=== PATIENT | male | born 1965 | race Caucasian/White ===

== ENCOUNTER 2016-07-30 14:31 | Inpatient (IN) | payer OTHER ==
[~2016-07-30] VITALS: Ht 157.5 cm; Wt 106.2 kg
[2016-07-30] MEDS ORDERED: SODIUM CHLORIDE 0.9% 1000ML 1,000 ML IV SCH (17:04)
[2016-07-30] MEDS ORDERED: NITROGLYCERIN 0.4 MG SL PER TAB CHARGE SL PRN (17:15)
[2016-07-30] MEDS ORDERED: ONDANSETRON INJ 2 MG/ML 2 ML VIAL IV PRN (17:15)
[2016-07-30] MEDS ORDERED: POLYETHYLENE (MIRALAX) 17 GM PACK PO PRN (17:15)
[2016-07-30] MEDS ORDERED: VANCOMYCIN CONSULT ACTIVE PRN (17:30)
[2016-07-30] MEDS ORDERED: PATIENT'S HEIGHT AND/OR WEIGHT NEEDED SCH (17:30)
[2016-07-30] MEDS ORDERED: PIPERACILL/TAZOBAC CONSULT ACTIVE PRN (17:30)
[2016-07-30 18:00] VITALS: BP 99/58; PULSE 66; TEMP 37; O2SAT 99; Ht 157.5 cm; Wt 106.2 kg
[2016-07-30] MEDS ORDERED: PIPERACILL/TAZOBAC IV 3.375 GM in DEXTROSE 5% 100ML 100 ML IV SCH (18:00)
[2016-07-30 18:05] LABS: BASO % 0.4 %; BASO ABS # 0.07 K/uL (0-0.2); COMPLETE YES; HEMATOCRIT 43.4 % (42-52); IG% 0.4 %; LYMPH % 10.4 %; LYMPH ABS # 1.74 K/uL (1.2-3.4); MEAN CELL VOLUME 96.4 fL (80-100); MEAN CORPUSCULAR HEMOGLOBIN 30.7 pg (25-34); MEAN CORPUSCULAR HGB CONC 31.8 g/dl (32-36); MEAN PLATELET VOLUME 11.6 fL (7.4-10.4); MONO % 8.4 %; NEUT % 80.4 %; PLATELET COUNT 114 K/uL (130-400); WHITE BLOOD COUNT 16.78 K/uL (4.8-10.8)
[2016-07-30 18:25] LABS: INR 1.3 (0.9-1.1); PROTHROMBIN TIME (PATIENT) 13.5 SECONDS (9.0-12.0)
[2016-07-30] MEDS ORDERED: PIPERACILL/TAZOBAC IV 4.5 GM in DEXTROSE 5% 100ML IV ONE (18:30)
[2016-07-30 18:40] LABS: BUN/CREATININE RATIO 22.2 (10-20); CREATININE 2.2 mg/dl (0.60-1.40); POTASSIUM 4.1 mmol/L (3.5-5.1); URIC ACID 10.9 mg/dl (2.6-7.2)
[2016-07-30 18:43] LABS: ALB/GLOB RATIO 0.5 (0.9-2)
--- NOTE | 2016-07-30 18:56 | HISTORY & PHYSICAL EXAMINATION ---
DATE OF ADMISSION: 07/30/2016 CHIEF COMPLAINT: Severe sepsis. HISTORY OF PRESENT ILLNESS: This is a 50-year-old male with past medical history significant for Down syndrome, mostly nonverbal; history of lower extremity stasis dermatitis, history of impaired fasting glucose, hyperlipidemia, cardiac murmur was transferred from [facility] for severe sepsis. Patient, he is mostly nonverbal, says he is okay. The patient lives with his biological mother and stepfather. His mother is disabled and step father takes care of both of them. Talked to his biological father and he said the patient developed some shortness of breath since yesterday and he fell down today and they called EMS and was transferred to [facility]. The father says the patient was having some cough and had a few episodes of diarrhea and patient was also not eating much since last 2 days and was running some temperatures, so he was transferred to [facility]. In the [facility] when the patient arrived he was hypotensive, systolic blood pressure in 60s. He got about 3 liters fluid bolus and blood pressure came up. His initial lactic acid was 3.4 and later lactic acid was 1.3, his troponin I was 0.7. CPK was 6600, initial creatinine was 3.1, repeat creatinine was after fluid bolus was 2.1. Sodium was also high at 150, and uric acid was 13.4. Calcium was 9.3 and the patient was transferred here for further care. He has two 18 gauge lines placed. Currently, blood pressure is stable in high 90s. Heart rate is stable, resting comfortably, seems comfortable. When asked about pain, points to his lower extremities. The patient is unkempt and very poor hygiene. He has lots of thick white scabs attached to his lower extremities and also some skin tear in his groins and also some skin tear in his back as per nursing staff.Also has petechiae rash on fore arms. ALLERGIES: ENVIRONMENTAL. PAST MEDICAL HISTORY: As mentioned above. PAST SURGICAL HISTORY: As per records from [facility], tonsillectomy, umbilical hernia repair, tympanostomy tubes, colonoscopy for internal hemorrhage in 2007. MEDICATIONS: The patient is on metformin 500 mg p.o. daily, atorvastatin 10 mg p.o. daily, triamcinolone for the legs, multivitamins 1 tablet p.o. daily. FAMILY HISTORY: Significant for mother had diabetes, maternal grandfather and grandmother and paternal grandfather has heart disorder. Mother has CVA. SOCIAL HISTORY: Single. No tobacco use. No alcohol use. No drug use. Lives with his biological mother and stepfather. Mother herself is disabled and stepfather takes care for both of them. REVIEW OF SYSTEMS: Unobtainable as patient is nonverbal. PHYSICAL EXAMINATION: GENERAL: The patient is obese, does not seem to be in distress. VITAL SIGNS: Afebrile, pulse 70s, respiratory rate in 20s, blood pressure 99/60s, oxygen saturations were fine. HEENT: No pallor, no icterus. Pupils equal, round, and reactive to light. Oral mucosa dry. NECK: No JVD, no neck masses, no carotid bruits. CARDIOVASCULAR: S1, S2 heard, regular rate and rhythm, no murmur, no gallop. RESPIRATORY SYSTEM: Clear to auscultation bilaterally. No wheezing, no crackles. ABDOMEN: Soft, bowel sounds present. Nontender. No distention. CENTRAL NERVOUS SYSTEM: Nonverbal. Moves his bilateral lower extremities. EXTREMITIES: Chronic lower extremity skin dermatitis and edema present. SKIN: Has petechial rash in upper extremities and excoriations and skin tears in the groin and he has very bad scabs in his lower extremities. ASSESSMENT AND PLAN: A 50-year-old male who presents with severe sepsis. 1. Severe sepsis. The patient went to [facility] with shortness of breath and x-ray showed right middle lobe pneumonia. His labs done at [facility] shows a white count of 15,000. We will repeat the labs. and initially lactic acid 3.1, repeat lactic acid was 1.4. Initial creatinine was 3.1 and repeat creatinine was 2.6. We will repeat the labs here. He received IV cefepime and IV vancomycin and 30 mL per kg body weight fluid bolus and his blood pressure is stable in the high 90s, heart rate is stable. We will follow his blood cultures and urine cultures. We will place him on IV Zosyn and IV vancomycin and iv fluids. Repeat lactic acid. Close monitor in tele. 2. He has skin excoriations in groin and back also patient is unkempt. The patient has very poor hygiene and lot of scabs in his lower extremities. We will consult wound care and follow the recommendations. We will consider consulting ID. 3. Poor hygiene. The patient with Down syndrome and lives with his biological mother and stepfather and mother is also on disability. Stepfather cares for both of them. The patient seems to be not very well taken care of, may area of agency may need to be involved. Social service consult. 4. Prediabetes. We will check HbA1c levels. Place him on insulin sliding scale. 5. History of hyperlipidemia will hold statin for now.Follow lipid profile. 6. Mild elevation of troponin. We will follow serial cardiac enzymes, most likely secondary to severe sepsis. 7. 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 ON fluids . Monitor for volume overload.We will follow the repeat echo. 8. Deep venous thrombosis prophylaxis heparin subQ. 9. Disposition: Close monitoring in tele floor. Level 1 full code. As per my discussion with his stepfather. Adendum: Labs showed hypernatremia with sodium of 152. Cr 2.2. Normal lactic acid of 1.8. Total bilirubin 1.5 and AST 251.Trponin 0.8.Uric acid 10.9 BP improved.Will change fluids to half normal saline 125ml/hr.Consult nephrology in am for hyperuricemia. Will hold stain for elevated lft's and will get liver ultrasound. MATTHEW
[2016-07-30 19:05] LABS: CALCIUM 8.1 mg/dl (8.5-10.1)
[2016-07-30 19:07] LABS: CKMB/CK RATIO 0.4 (0-3.0)
[2016-07-30 19:15] VITALS: BP 122/70; PULSE 69; TEMP 37.4; O2SAT 96
[2016-07-30] MEDS: SODIUM CHLORIDE 0.45% 1000ML 1,000 ML IV SCH (19:41)
[2016-07-30 20:00] VITALS: O2SAT 96
--- NOTE | 2016-07-30 20:58 | DIAGNOSTIC IMAGING REPORT ---
BILIARY ULTRASOUND CLINICAL HISTORY: elevated liver function tests COMPARISON STUDY: No previous studies for comparison. FINDINGS: The pancreas was nonvisualized. The liver is of increased echogenicity, a nonspecific finding often seen in hepatic steatosis. No gallstones are visualized. There is no ductal dilatation. The common bile duct measured 4 mm. There is no right-sided hydronephrosis. The study was limited from a technical standpoint. The patient is nonverbal and unable to cooperate. IMPRESSION: 1. Technically limited study 2. Probable hepatic steatosis 3. Ultrasonographically normal gallbladder. No evidence of ductal dilatation 4. Nondiagnostic evaluation of the pancreas Electronically signed by: Juan J Rizzo M.D. 07/30/2016 8:57 PM Dictated Date/Time: 07/30/2016 8:56 PM
[2016-07-30] MEDS ORDERED: VANCOMYCIN INJ 1,000 MG in SODIUM CHLORIDE 0.9% 250ML 250 ML IV ONE (21:00)
[2016-07-30] MEDS ORDERED: VANCOMYCIN INJ 1,000 MG in SODIUM CHLORIDE 0.9% 250ML 250 ML IV SCH (21:00)
[2016-07-30] MEDS: INSULIN ASPART 100 UNITS/ML 3 ML PEN SC SCH (21:00)
--- NOTE | 2016-07-30 21:09 | Pharmacy Progress Note ---
Pharmacy Abx Initial Consult Date of Service Jul 30, 2016. Pharmacy Dosing Scope Date of Consult: 07/30/16 Consultation requested by: Dr. Siddiqui Pharmacy is consulted to initiate Vanco/Zosyn IV dosing therapy, order appropriate labs and adjust drug dose/frequency. Subjective The patient is a 50 year old male admitted on Jul 30, 2016 at 16:38. Objective Height (Feet): 5 Height (Inches): 3.00 Weight (Kilograms): 106.800 Vital Signs (Past 12Hrs) Vital Signs Past 12 Hours Date Time Temp Pulse Resp B/P (MAP) Pulse Ox O2 Delivery O2 Flow Rate FiO2 07/30/16 19:15 37.4 69 20 122/70 (87) 96 Nasal Cannula 4.0 07/30/16 18:00 37.0 66 20 99/58 99 Nasal Cannula 2.0 Lab Results (24Hrs) Laboratory Tests (24 Hours) Test 07/30/16 17:52 Lactic Acid Level 1.8 mmol/L (0.4-2.0) White Blood Count 16.78 K/uL (4.8-10.8) H Red Blood Count 4.50 M/uL (4.7-6.1) L Hemoglobin 13.8 g/dL (14.0-18.0) L Hematocrit 43.4 % (42-52) Mean Corpuscular Volume 96.4 fL (80-100) Mean Corpuscular Hemoglobin 30.7 pg (25-34) Mean Corpuscular Hemoglobin Concent 31.8 g/dl (32-36) L Platelet Count 114 K/uL (130-400) L Mean Platelet Volume 11.6 fL (7.4-10.4) H Neutrophils (%) (Auto) 80.4 % Lymphocytes (%) (Auto) 10.4 % Monocytes (%) (Auto) 8.4 % Eosinophils (%) (Auto) 0.0 % Basophils (%) (Auto) 0.4 % Neutrophils # (Auto) 13.50 K/uL (1.4-6.5) H Lymphocytes # (Auto) 1.74 K/uL (1.2-3.4) Monocytes # (Auto) 1.41 K/uL (0.11-0.59) H Eosinophils # (Auto) 0.00 K/uL (0-0.5) Basophils # (Auto) 0.07 K/uL (0-0.2) Total Creatine Kinase 8043 U/L (39-308) H Micro Results Date/Time Source Procedure Growth Status 07/30/16 18:05 Blood Blood Culture Pending Received 07/30/16 17:52 Blood Blood Culture Pending Received 07/30/16 18:30 Nasal MRSA DNA Surveillance Screen - Final Specimen Negative for MRSA by DNA Probe Complete Risk Factors for Resistance Unsure at this juncture Assessment & Plan Pt is a 50yo M being transferred from [facility]. SHIFT LEADER: Mr Mukesh was hypotensive, febrile, lactic acid of 3.1, and had an X-ray indicative of PNA. He did receive one dose of Vanco 1000mg x1 and one dose of Cefepime 2000mg x1. Currently, he is experiencing leukocytosis with a left shift , afebrile, RR/HR. Repeat lactic acid 1.8. Pt popualtion p'kinetics: Vd=0.6, ke= 0.28953, t1/2=17hrs. Unsure if this is baseline for his renal fxn. Unsure if he has a h/o of MDRO. MRSA swab came back negative. May consider d/c'ing Vanco at a future juncture dependent on pt's clinical status. Vanco: Random lvl 13.0. Due to poor renal fxn will order a one time dose of Vanco 1000mg (~9mg/kg), random lvl ordered for 07/31 @0444. Goal random lvl 15- 20 until c/s's result. Zosyn: Received one time 30min infsn of Zosyn 4.5g then subsequent doses of EI Zosyn 4.5g q8, appropriate for BMI and eCrCl>20cc/min Pharmacy will continue to follow and will adjust dose/frequency as necessary. Thank you.
[2016-07-30] MEDS: HEPARIN SOD 5000 UNIT/0.5 ML CARP SQ SCH (22:30)
[2016-07-31] VITALS (11 sets, daily range): BP systolic 90–132; BP diastolic 54–65; PULSE 62–75; TEMP 36.5–37; O2SAT 96–100
[2016-07-31] MEDS: PIPERACILL/TAZOBAC IV 4.5 GM in DEXTROSE 5% 100ML IV SCH ×3 (00:25→16:39)
[2016-07-31 01:43] LABS: CKMB/CK RATIO 0.3 (0-3.0)
[2016-07-31] MEDS: SODIUM CHLORIDE 0.45% 1000ML 1,000 ML IV SCH ×3 (05:37→18:18)
[2016-07-31] MEDS: HEPARIN SOD 5000 UNIT/0.5 ML CARP SQ SCH ×3 (05:44→22:25)
[2016-07-31 05:46] LABS: HEMATOCRIT 41.7 % (42-52); MEAN CELL VOLUME 97.7 fL (80-100); MEAN CORPUSCULAR HEMOGLOBIN 30.7 pg (25-34); MEAN CORPUSCULAR HGB CONC 31.4 g/dl (32-36); RED BLOOD COUNT 4.27 M/uL (4.7-6.1); WHITE BLOOD COUNT 22.33 K/uL (4.8-10.8)
[2016-07-31 05:53] LABS: ESTIMATED AVERAGE GLUCOSE 108 mg/dl; HA1C FLAG Normal (Normal)
[2016-07-31 06:17] LABS: BUN/CREATININE RATIO 25.3 (10-20); CALCIUM 7.8 mg/dl (8.5-10.1); CREATININE 1.6 mg/dl (0.60-1.40); MAGNESIUM 2.5 mg/dl (1.8-2.4)
[2016-07-31 06:20] LABS: CHOLESTEROL/HDL RATIO 5.3
[2016-07-31 06:48] LABS: BASO % 0.2 %; BASO ABS # 0.04 K/uL (0-0.2); COMPLETE YES; IG% 0.4 %; LYMPH % 6.3 %; MEAN PLATELET VOLUME 11.2 fL (7.4-10.4); MONO % 5.8 %; NEUT % 87.3 %; PLATELET COUNT 98 K/uL (130-400); PLT ESTIMATE DECREASED
[2016-07-31] MEDS: INSULIN ASPART 100 UNITS/ML 3 ML PEN SC SCH ×4 (07:30→22:00)
--- NOTE | 2016-07-31 07:44 | DIAGNOSTIC IMAGING REPORT ---
CHEST ONE VIEW PORTABLE HISTORY: PNEUMONIA COMPARISON: Outside hospital chest x-ray 07/30/2016. FINDINGS: No pneumothorax. The heart is moderately enlarged. Trace bilateral pleural effusions. Perihilar interstitial and vascular thickening with basilar densities. IMPRESSION: Cardiomegaly, trace bilateral pleural effusions and perihilar interstitial vascular thickening favors mild pulmonary edema. Bibasilar densities may represent a superimposed pneumonia. Electronically signed by: Akira Wu M.D. 07/31/2016 7:43 AM Dictated Date/Time: 07/31/2016 7:42 AM
[2016-07-31] MEDS ORDERED: NURSING DECISION MEDICATION ORDER SCH (08:00)
[2016-07-31] MEDS: VANCOMYCIN INJ 1,500 MG in SODIUM CHLORIDE 0.9% 500ML 500 ML IV SCH (08:04)
[2016-07-31] MEDS: EUCERIN CR 120 GM JAR EXT SCH ×2 (08:37→20:51)
--- NOTE | 2016-07-31 10:07 | Clinical Documentation Query ---
CLINICAL DOCUMENTATION QUERY 50-y/o male with severe sepsis. Query #1/2 In your clinical opinion is this patient being managed for: (+) Suspected aspiration pneumonia evidenced by RML pneumonia and treated with Speech therapy consult and IV Zosyn and Vancomycin. ( ) Other explanation of clinical findings (Please Explain) ( ) Unable to determine (Please Define) ( ) Need to Discuss ( ) Not Agree The medical record reflects the following clinical findings, treatment, and risk factors. Clinical Indicators: RML pneumonia per H&P. Severe Sepsis. Treatment: O2, IV Vancomycin, IV Zosyn, Nephrology consult, & speech therapy evail Risk Factors: Age, Down syndrome, Query #2/2 In your clinical opinion is this patient being managed for: ( + ) SURAJ in setting of severe sepsis and presenting hypotension. ( ) Other explanation of clinical findings (Please Explain) ( ) Unable to determine (Please Define) ( ) Need to Discuss ( ) Not Agree The medical record reflects the following clinical findings, treatment, and risk factors. Clinical Indicators: Creatinine of 3.1 at [facility]. BUN 49 Creatinine 2.20, GFR 33.4 from labs drawn on arrival here. Treatment: multiple IV boluses, Nephrology consult. Risk Factors: Severe sepsis with presenting hypotension. Please clarify and document your clinical opinion in the progress notes and discharge summary. Terms such as "probable", "suspected", "likely", "questionable", "possible", or "still to be ruled out" are acceptable. IF IN AGREEMENT, YOU MUST DOCUMENT ABOVE DIAGNOSTIC STATEMENT IN DAILY PROGRESS NOTES AND DISCHARGE SUMMARY. This document is not part of the patient's record. Thank You, Duane Pelayo, RN [phone]
[2016-07-31 10:47] LABS: CKMB/CK RATIO 0.3 (0-3.0)
--- NOTE | 2016-07-31 11:03 | Pharmacy Progress Note ---
Pharmacy Antibiotic Prog Note Date of Service Jul 31, 2016. Subjective The patient is currently receiving Vancomycin IV. The patient is currently on day # 2 of therapy. Objective Height (Feet): 5 Height (Inches): 3.00 Weight (Kilograms): 106.200 Levels: Item Value Date Time Random Vancomycin Level 14.6 mcg/ml 07/31/16520 Lab Results (24hrs): Item Value Date Time White Blood Count 22.33 K/uL H 07/31/16520 Neutrophils # (Auto) 19.51 K/uL H 07/31/16520 Creatinine 1.60 mg/dl H 07/31/16520 Est Creatinine Clear Calc Drug Dose 58.3 ml/min 07/31/16520 Micro Results: Item Value Date Time Urine Culture Received 07/31/16 0023 Urine , Clean Catch Pending MRSA DNA Surveillance Screen - Final Complete 07/30/16 1830 Nasal Specimen Negative for MRSA by DNA Probe Blood Culture Received 07/30/16 1805 Blood Pending Blood Culture Received 07/30/16 1752 Blood Pending Assessment & Plan ASSESSMENT: * Patient was a direct admit from [facility] last evening. Patient admitted with sepsis/pna. * Vanc given at [facility] and small supplemental dose given upon admission, with random level evaluation this morning (in the setting of SURAJ). * Random level this morning indicates that re-dose is warranted. Will initiate conservatively and adjust regimen as renal function improves. It is unclear what patient's baseline renal function is. PLAN: * Random vanc level this mornin.6mcg/mL * This drug level is: nearly Therapeutic * Begin Vancomycin 1500 mg (~14mg/kg) IV every 16 hours. * dosing conservatively d/t the likelihood of vancomycin accumulation in the obese pt population (BMI 42.8kg/m2) * Estimated p'kinetic parameters (based on CrCl 58mL/min): expect that this may continue to improve * Ke ~ 0.053/hr t1/2 ~ 13hr * Goal trough level estimate: between 15 - 20 mcg/mL, for sepsis/pna. * Will check a trough level prior to the 3rd or 4th maintenance dose. Pharmacy will continue to follow and will adjust dose/frequency as necessary. Thank you
[2016-07-31] MEDS ORDERED: NURSING VERBAL MED ORDER ONE (12:45)
[2016-07-31] MEDS ORDERED: SODIUM CHLORIDE 0.45% 1000ML 1,000 ML IV SCH (13:30)
--- NOTE | 2016-07-31 14:58 | Progress Note ---
Internal Med Progress Note Date of Service: Jul 31, 2016. Provider Documentation: SUBJECTIVE: The patient was seen and examined Minimally verbal Not in any distress OBJECTIVE: Vital Signs-as noted below Exam: General-no acute symptoms Eyes-normal ENT-normal Neck-supple Lungs-Decreased breath sound bilaterally Heart-Regular,no murmur appreciated Abdomen-Benign,no masses,bowel sound present Extremities-Chronic edema bilaterally with chronic skin changes Dirty wartlike lesions cover almost all of the lower legs Chronic Cutaneous Mycosis,superficial ulcerations Neuro-AA Has Down syndrome Lab data as noted below. ASSESSMENT & PLAN: Severe sepsis. Transferred from [facility] ER with Hypotension ,tachycardia and increased WCC Reported to have Pneumonia ,may have UTI and or skin and soft tissue infection Cultures taken Has been on IV Zosyn and Vancomycin Receiving adequet IVF Lactic acid improved ,BP stable WCC increased -will monitor SURAJ and Increased Uric Acid and Hypernatremia Likely secondary to Dehydration and sepsis Receiving adequet IVF with .45 saline Minimal increase in Troponin is likely due to SURAJ Monitor PRP Poor hygiene. He has skin excoriations in groin and back And likely skin mycosis in legs Consult wound care and follow the recommendations. Social Service for possible placement May need ID if not any better Abnormal LFT US negative for any Cholecystitis Has Steatosis Will monitor Increased CPK No known Injury and or fall Will monitor Prediabetes. We will check HbA1c levels.-5.[address] him on insulin sliding scale. Hyperlipidemia will hold statin for now. Follow lipid profile. 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 ON fluids . Monitor for volume overload.We will follow the repeat echo. Deep venous thrombosis prophylaxis heparin subQ. Level 1 full code. As per my discussion with his stepfather. Disposition May be transferred to [place] Vital Signs: Date Time Temp Pulse Resp B/P (MAP) Pulse Ox O2 Delivery O2 Flow Rate FiO2 07/31/16 13:56 113/55 (74) 07/31/16 12:00 96 Nasal Cannula 3.0 07/31/16 11:44 36.7 65 20 93/54 (67) 98 Nasal Cannula 3.0 07/31/16 08:00 98 Nasal Cannula 3.0 07/31/16 07:30 36.5 62 20 106/56 (73) 98 Nasal Cannula 3.0 07/31/16 04:00 Nasal Cannula 4.0 07/31/16 03:47 36.5 65 18 111/65 (80) 100 Nasal Cannula 3.0 07/31/16 00:27 37.0 71 20 115/60 (78) 98 07/30/16 23:59 Nasal Cannula 4.0 07/30/16 20:00 96 Nasal Cannula 4.0 07/30/16 19:15 37.4 69 20 122/70 (87) 96 Nasal Cannula 4.0 07/30/16 18:00 37.0 66 20 99/58 99 Nasal Cannula 2.0 Lab Results: Results Past 24 Hours Test 07/30/16 17:52 07/30/16 20:10 07/31/16 01:00 07/31/16 05:21 Range/Units White Blood Count 16.78 22.33 4.8-10.8 K/uL Red Blood Count 4.50 4.27 4.7-6.1 M/uL Hemoglobin 13.8 13.1 14.0-18.0 g/dL Hematocrit 43.4 41.7 42-52 % Mean Corpuscular Volume 96.4 97.7 80-100 fL Mean Corpuscular Hemoglobin 30.7 30.7 25-34 pg Mean Corpuscular Hemoglobin Concent 31.8 31.4 32-36 g/dl Platelet Count 114 98 130-400 K/uL Mean Platelet Volume 11.6 11.2 7.4-10.4 fL Neutrophils (%) (Auto) 80.4 87.3 % Lymphocytes (%) (Auto) 10.4 6.3 % Monocytes (%) (Auto) 8.4 5.8 % Eosinophils (%) (Auto) 0.0 0.0 % Basophils (%) (Auto) 0.4 0.2 % Neutrophils # (Auto) 13.50 19.51 1.4-6.5 K/uL Lymphocytes # (Auto) 1.74 1.40 1.2-3.4 K/uL Monocytes # (Auto) 1.41 1.30 0.11-0.59 K/uL Eosinophils # (Auto) 0.00 0.00 0-0.5 K/uL Basophils # (Auto) 0.07 0.04 0-0.2 K/uL RDW Standard Deviation 54.6 54.8 36.4-46.3 fL RDW Coefficient of Variation 15.3 15.3 11.5-14.5 % Immature Granulocyte % (Auto) 0.4 0.4 % Immature Granulocyte # (Auto) 0.06 0.08 0.00-0.02 K/uL Nucleated RBC Absolute Count (auto) 0.02 0-0 K/uL Nucleated Red Blood Cells % 0.1 % Prothrombin Time 13.5 9.0-12.0 SECONDS Prothromb Time International Ratio 1.3 0.9-1.1 Activated Partial Thromboplast Time 26.3 21.0-31.0 SECONDS Partial Thromboplastin Ratio 1.0 Sodium Level 152 153 136-145 mmol/L Potassium Level 4.1 4.0 3.5-5.1 mmol/L Chloride Level 119 121 98-107 mmol/L Carbon Dioxide Level 24 26 21-32 mmol/L Anion Gap 9.0 6.0 3-11 mmol/L Blood Urea Nitrogen 49 40 7-18 mg/dl Creatinine 2.20 1.60 0.60-1.40 mg/dl Est Creatinine Clear Calc Drug Dose 42.4 58.3 ml/min Estimated GFR () 38.8 57.0 Estimated GFR (Non- 33.4 49.2 BUN/Creatinine Ratio 22.2 25.3 10-20 Random Glucose 110 106 70-99 mg/dl Lactic Acid Level 1.8 0.4-2.0 mmol/L Uric Acid 10.9 2.6-7.2 mg/dl Calcium Level 8.1 7.8 8.5-10.1 mg/dl Total Bilirubin 1.5 0.2-1 mg/dl Aspartate Amino Transf (AST/SGOT) 251 15-37 U/L Alanine Aminotransferase (ALT/SGPT) 59 12-78 U/L Alkaline Phosphatase 38 45-117 U/L Total Creatine Kinase 8043 6505 39-308 U/L Creatine Kinase MB 28.8 22.2 0.5-3.6 ng/ml Creatine Kinase MB Ratio 0.4 0.3 0-3.0 Troponin I 0.811 0.497 0-0.045 ng/ml Total Protein 6.8 6.4-8.2 gm/dl Albumin 2.4 3.4-5.0 gm/dl Globulin 4.4 2.5-4.0 gm/dl Albumin/Globulin Ratio 0.5 0.9-2 Random Vancomycin Level 13.0 14.6 mcg/ml Bedside Glucose 106 70-99 mg/dl Platelet Estimate DECREASED Estimated Average Glucose 108 mg/dl Hemoglobin A1c 5.4 4.5-5.6 % Magnesium Level 2.5 1.8-2.4 mg/dl Triglycerides Level 161 0-150 mg/dl Cholesterol Level 121 0-200 mg/dl HDL Cholesterol 23 mg/dl LDL Cholesterol, Calculated 66 mg/dl VLDL Cholesterol, Calculated 32 mg/dl Cholesterol/HDL Ratio 5.3 Test 07/31/16 07:07 07/31/16 09:55 07/31/16 11:19 Range/Units Bedside Glucose 87 97 70-99 mg/dl Total Creatine Kinase 4349 39-308 U/L Creatine Kinase MB 15.2 0.5-3.6 ng/ml Creatine Kinase MB Ratio 0.3 0-3.0 Troponin I 0.304 0-0.045 ng/ml Microbiology Results 07/30/16 Blood Culture, Received Pending 07/30/16 Blood Culture, Received Pending 07/30/16 MRSA DNA Surveillance Screen - Final, Complete Specimen Negative for MRSA by DNA Probe 07/31/16 Urine Culture, Received Pending
--- NOTE | 2016-07-31 15:26 | ECHOCARDIOGRAM REPORT ---
*NOTICE TO RECEIVING LIBERTARIAN AGENCY This information is strictly Confidential and protected under [place] law. [place] law prohibits you from making any further disclosure of this information unless further disclosure is expressly permitted by the written consent of the person to whom it pertains or is authorized by law. A general authorization for the release of medical or other information is not sufficient for this purpose. Hospital accepts no responsibility if the information is made available to any other person, INCLUDING THE PATIENT. Interpretation Summary * Name: SAMREEN COPPOLA Study Date: 07/31/2016 06:43 AM BP: 111/65 mmHg * Patient Location: [facility] HR: 67 * : 1965 (M/d/yyyy) Gender: Male Height: 63 in * Age: 50 yrs Ethnicity: CA Weight: 234 lb * Ordering Physician: Max Siddiqui * Referring Physician: Max Siddiqui * Performed By: Michelle Sorensen RDCS * * Reason For Study: Mild elevation of troponin, murmur * BSA: 2.1 m2 * The study was technically adequate. * There is no comparison study available. * -- Conclusions -- * Ejection Fraction = 60-65%. * The left ventricular wall motion is normal. * Pulse wave TDI of the anterior and posterior mitral annulas demonstrates abnormal LV relaxation * Aortic valve sclerosis mild, without significant aortic valvular stenosis. Procedure Details * A complete two-dimensional transthoracic echocardiogram was performed (2D, M-mode, Doppler and color flow Doppler). Left Ventricle * The left ventricle is normal in size. * There is normal left ventricular wall thickness. * Ejection Fraction = 60-65%. * Left ventricular systolic function is normal. * The left ventricular wall motion is normal. Right Ventricle * The right ventricle is normal size. * The right ventricular systolic function is normal as assessed by tricuspid annular plane systolic excursion (TAPSE) (normal >1.5 cm). Atria * The left atrial size is normal. * Right atrial size is normal. * There is no evidence of atrial septal defect, but resolution does not allow assessment for a patent foramen ovale. Mitral Valve * The mitral valve is normal. * There is no mitral valve stenosis. * Significant mitral regurgitation is absent. Tricuspid Valve * The tricuspid valve is normal. * There is no tricuspid stenosis. * Significant tricuspid regurgitation is absent. Aortic Valve * The aortic valve is not well visualized. * Aortic valve sclerosis mild, without significant aortic valvular stenosis. * Aortic stenosis is absent. * There is no significant aortic regurgitation. Pulmonic Valve * The pulmonary valve is not well seen, but the Doppler examination is normal without significant regurgitation or stenosis. Great Vessels * The aortic root and proximal ascending aorta are normal sized. Pericardium/Pleural * There is no pericardial effusion. Great Vessels * Normal inferior vena cava diameter and respiratory variation suggests normal central venous pressure. Left Ventricular Diastolic Function * Pulse wave TDI of the anterior and posterior mitral annulas demonstrates abnormal LV relaxation MMode 2D Measurements and Calculations IVSd 1.1 cm LVIDd 4.0 cm LVIDs 2.5 cm LVPWd 1.1 cm IVS/LVPW 1.0 FS 37.7 % EDV(Teich) 69.0 ml ESV(Teich) 21.8 ml EF(Teich) 68.4 % EDV(cubed) 62.8 ml ESV(cubed) 15.2 ml EF(cubed) 75.9 % LV mass(C)d 140.8 grams LV mass(C)dI 68.1 grams/m\S\2 SV(Teich) 47.2 ml SI(Teich) 22.8 ml/m\S\2 SV(cubed) 47.7 ml SI(cubed) 23.1 ml/m\S\2 Ao root diam 3.6 cm Ao root area 10.2 cm\S\2 ACS 1.7 cm LA dimension 2.1 cm asc Aorta Diam 2.9 cm LA/Ao 0.60 LVOT diam 2.2 cm LVOT area 3.7 cm\S\2 LVAd ap4 28.2 cm\S\2 LVLd ap4 8.3 cm EDV(MOD-sp4) 77.8 ml EDV(sp4-el) 81.4 ml LVAs ap4 14.6 cm\S\2 LVLs ap4 6.3 cm ESV(MOD-sp4) 26.1 ml ESV(sp4-el) 28.8 ml EF(MOD-sp4) 66.5 % EF(sp4-el) 64.7 % LVAd ap2 27.5 cm\S\2 LVLd ap2 7.7 cm EDV(MOD-sp2) 78.6 ml EDV(sp2-el) 82.6 ml LVAs ap2 15.2 cm\S\2 LVLs ap2 6.9 cm ESV(MOD-sp2) 27.6 ml ESV(sp2-el) 28.5 ml EF(MOD-sp2) 65.0 % EF(sp2-el) 65.5 % LVLd %diff -6.75 % EDV(MOD-bp) 81.0 ml LVLs %diff 8.8 % ESV(MOD-bp) 26.3 ml EF(MOD-bp) 67.5 % SV(MOD-sp4) 51.7 ml SI(MOD-sp4) 25.0 ml/m\S\2 SV(MOD-sp2) 51.1 ml SI(MOD-sp2) 24.7 ml/m\S\2 SV(MOD-bp) 54.7 ml SI(MOD-bp) 26.4 ml/m\S\2 SV(sp4-el) 52.6 ml SI(sp4-el) 25.5 ml/m\S\2 SV(sp2-el) 54.2 ml SI(sp2-el) 26.2 ml/m\S\2 Doppler Measurements and Calculations MV E max shey 88.8 cm/sec MV A max shey 84.9 cm/sec MV E/A 1.0 MV dec time 0.23 sec Ao V2 max 153.4 cm/sec Ao max PG 9.4 mmHg Ao max PG (full) 5.3 mmHg OMAR(V,A) 2.4 cm\S\2 OMAR(V,D) 2.4 cm\S\2 LV V1 max PG 4.1 mmHg LV V1 max 100.9 cm/sec PA V2 max 105.9 cm/sec PA max PG 4.5 mmHg PA acc slope 524.2 cm/sec\S\2 PA acc time 0.13 sec PA pr(Accel) 22.0 mmHg
[2016-07-31 18:06] LABS: BUN/CREATININE RATIO 24.7 (10-20); CREATININE 1.3 mg/dl (0.60-1.40); MAGNESIUM 2.6 mg/dl (1.8-2.4); POTASSIUM 4.3 mmol/L (3.5-5.1)
[2016-07-31 18:07] LABS: URIC ACID 6.3 mg/dl (2.6-7.2)
--- NOTE | 2016-07-31 20:33 | Nephrology Consultation ---
Nephrology Consultation Date of Consultation: Jul 31, 2016. Attending Physician: Dr Ibarra Requesting Physician: Dr Siddiqui Reason for Consultation: SURAJ History of Present Illness 50 year old male w/ Downs syndrome and unknown outpt med list transferred from [facility] ER for mgt of severe sepsis. PMH reportedly includes chronic LE stasis ulcers, hyperlipidemia. Baseline creatinine unknown. He lives at home with his parents; his father is his primary caregiver. He reportedly fell out of bed / was dyspneic at home on 07/30 and EMS was called. Noted to have tep 104 rectal and sbp 80s on arrival to ED (IVF started en route). He had over 3L ivf at [facility]. presenting creatinine was 3.4 w/ Na 149; improved by 1400 yesterday to 2.1 creatinine with sodium 150; uric acid 13, albumin 3; lactate 3.4; WBC 15K. Head CT showed R acute on chronic otomastoiditis. Also noted on arrival to be quite unkempt w/ excoriated perineum and w/ old/ new feces; [facility] was called. Today his creatinine is 1.6; Na 153; uric acid normalizing. Mild elevation in troponins but all < 1 and trending down. Pt is interactive but close to non verbal and gives little hx. I evaluated him at 1045 this am; most hx is from the chart. Past Medical/Surgical History -Downs syndrome -chronic lower extremity stasis changes ?hyperlipidemia reportedly Family History Diabetes mellitus MOTHER Hypertension MOTHER Stroke MOTHER Social History Smoking Status: Unknown if Ever Smoked Alcohol Use: none Drug Use: none Marital Status: single Housing Status: lives with family Occupation Status: disabled Allergies Coded Allergies: No Known Allergies (Unverified , 07/30/16) Medications Current Inpatient Medications Medications (Trade) Dose Ordered Sig/Saurabh Route Start Time Stop Time Status Last Admin Dose Admin Heparin Sodium (Porcine) (Heparin Sq 5000 Unit/0.5ml) 5,000 unit Q8 SQ 07/30/16 22:00 08/29/16 21:59 07/31/16 13:20 5,000 UNIT Acetaminophen (Tylenol Tab) 650 mg Q4H PRN PO 07/30/16 17:15 08/29/16 17:14 Ondansetron HCl (Zofran Inj) 4 mg Q6H PRN IV 07/30/16 17:15 08/29/16 17:14 Nitroglycerin (Nitrostat Tab) 0.4 mg UD PRN SL 07/30/16 17:15 08/29/16 17:14 Polyethylene (Miralax Powder Packet) 17 gm DAILY PRN PO 07/30/16 17:15 08/29/16 17:14 Insulin Aspart (novoLOG ASPART) SLIDING SCALE G... ACHS SC 07/30/16 21:00 08/29/16 20:59 Vancomycin HCl (Consult) 1 ea UD PRN N/A 07/30/16 17:30 08/29/16 17:29 Piperacillin Sod/ Tazobactam Sod (Consult) 1 ea UD PRN N/A 07/30/16 17:30 08/29/16 17:29 Piperacillin Sod/ Tazobactam Sod 4.5 gm/Dextrose 120 ml @ 30 mls/hr Q8H IV 07/31/16 00:00 08/07/16 00:00 07/31/16 16:39 30 MLS/HR Sodium Chloride 1,000 ml @ 150 mls/hr Q6H40M IV 07/30/16 19:30 08/29/16 19:29 07/31/16 18:18 150 MLS/HR Vancomycin HCl 1500 mg/Sodium Chloride 530 ml @ 200 mls/hr Q16H IV 07/31/16 08:00 08/07/16 07:59 07/31/16 08:04 200 MLS/HR Multi-Ingredient Ointment (Eucerin Unscented Cr) 1 appln BID EXT 07/31/16 09:00 08/30/16 08:59 07/31/16 08:37 1 APPLN Review of Systems Constitutional: + see HPI, + fever pt cannot give hx or ros Physical Exam Date Time Temp Pulse Resp B/P (MAP) Pulse Ox O2 Delivery O2 Flow Rate FiO2 07/31/16 16:52 37.0 73 18 118/61 (80) 97 Nasal Cannula 2.0 07/31/16 16:05 37.0 69 20 97 3.0 07/31/16 15:39 37.0 69 20 132/64 (86) 97 Nasal Cannula 3.0 07/31/16 13:56 113/55 (74) 07/31/16 12:00 96 Nasal Cannula 3.0 07/31/16 11:44 36.7 65 20 93/54 (67) 98 Nasal Cannula 3.0 07/31/16 08:00 98 Nasal Cannula 3.0 07/31/16 07:30 36.5 62 20 106/56 (73) 98 Nasal Cannula 3.0 07/31/16 04:00 Nasal Cannula 4.0 07/31/16 03:47 36.5 65 18 111/65 (80) 100 Nasal Cannula 3.0 07/31/16 00:27 37.0 71 20 115/60 (78) 98 07/30/16 23:59 Nasal Cannula 4.0 24-Hour Column 08/01/16 08:00 Intake Total 2114 ml Output Total 600 ml Balance 1514 ml General Appearance: WD/WN, no apparent distress (on 2L 02nc) Eyes: EOMI ENT: hearing grossly normal, + muffled/hoarse voice, + pertinent finding ( Downs appearing facial features) Neck: supple Respiratory/Chest: + decreased breath sounds Cardiovascular: regular rate, rhythm, + systolic murmur Abdomen: normal bowel sounds, non tender, soft, + pertinent finding (espino w/ scant sediment rich urine) Extremities: + pedal edema (chronic indurated elephantiasis - like) Neurologic/Psych: alert, normal mood/affect (cooperative and pleasant) Skin: no jaundice, warm/dry, + pertinent finding (perineum not examined; BL feet as above; some superficial abrasions R scalp) Diagnostics Last 24 Hours Test 07/31/16 01:00 07/31/16 05:21 07/31/16 07:07 07/31/16 09:55 Total Creatine Kinase 6505 U/L 4349 U/L Creatine Kinase MB 22.2 ng/ml 15.2 ng/ml Creatine Kinase MB Ratio 0.3 0.3 Troponin I 0.497 ng/ml 0.304 ng/ml White Blood Count 22.33 K/uL Red Blood Count 4.27 M/uL Hemoglobin 13.1 g/dL Hematocrit 41.7 % Mean Corpuscular Volume 97.7 fL Mean Corpuscular Hemoglobin 30.7 pg Mean Corpuscular Hemoglobin Concent 31.4 g/dl Platelet Count 98 K/uL Mean Platelet Volume 11.2 fL Neutrophils (%) (Auto) 87.3 % Lymphocytes (%) (Auto) 6.3 % Monocytes (%) (Auto) 5.8 % Eosinophils (%) (Auto) 0.0 % Basophils (%) (Auto) 0.2 % Neutrophils # (Auto) 19.51 K/uL Lymphocytes # (Auto) 1.40 K/uL Monocytes # (Auto) 1.30 K/uL Eosinophils # (Auto) 0.00 K/uL Basophils # (Auto) 0.04 K/uL RDW Standard Deviation 54.8 fL RDW Coefficient of Variation 15.3 % Immature Granulocyte % (Auto) 0.4 % Immature Granulocyte # (Auto) 0.08 K/uL Platelet Estimate DECREASED Sodium Level 153 mmol/L Potassium Level 4.0 mmol/L Chloride Level 121 mmol/L Carbon Dioxide Level 26 mmol/L Anion Gap 6.0 mmol/L Blood Urea Nitrogen 40 mg/dl Creatinine 1.60 mg/dl Est Creatinine Clear Calc Drug Dose 58.3 ml/min Estimated GFR () 57.0 Estimated GFR (Non- 49.2 BUN/Creatinine Ratio 25.3 Random Glucose 106 mg/dl Estimated Average Glucose 108 mg/dl Hemoglobin A1c 5.4 % Calcium Level 7.8 mg/dl Magnesium Level 2.5 mg/dl Triglycerides Level 161 mg/dl Cholesterol Level 121 mg/dl HDL Cholesterol 23 mg/dl LDL Cholesterol, Calculated 66 mg/dl VLDL Cholesterol, Calculated 32 mg/dl Cholesterol/HDL Ratio 5.3 Random Vancomycin Level 14.6 mcg/ml Bedside Glucose 87 mg/dl Test 07/31/16 11:19 07/31/16 16:10 07/31/16 17:26 07/31/16 19:42 Bedside Glucose 97 mg/dl 95 mg/dl 90 mg/dl Sodium Level 152 mmol/L Potassium Level 4.3 mmol/L Chloride Level 120 mmol/L Carbon Dioxide Level 25 mmol/L Anion Gap 7.0 mmol/L Blood Urea Nitrogen 32 mg/dl Creatinine 1.30 mg/dl Est Creatinine Clear Calc Drug Dose 71.5 ml/min Estimated GFR () 73.2 Estimated GFR (Non- 63.2 BUN/Creatinine Ratio 24.7 Random Glucose 119 mg/dl Uric Acid 6.3 mg/dl Calcium Level 8.0 mg/dl Magnesium Level 2.6 mg/dl Diagnostic Radiology: cxr bilateral pl effusions / mild interstitial edema/ possible superimposed pna liver u/s > hepatosteatosis TTE today Ejection Fraction = 60-65%. The left ventricular wall motion is normal. Pulse wave TDI of the anterior and posterior mitral annulas demonstrates abnormal LV relaxation Aortic valve sclerosis mild, without significant aortic valvular stenosis. Assessment & Plan 60 y/o M Downs syndrome pt transferred from outside hospital with severe sepsis > elevated lactate, F 104, hypotension, leukocytosis, presenting creatinine 3.4. Acute renal failure, non oliguric; baseline unknown but renal function improving -cont NS at 150 mL hourly as respiratory status tolerates -daily bmp/ cbc; elevated uric acid has normalized; elevation d/t severe volume depletion -cont strict I/O Hypernatremia --for now cont NS; low threshold to change to 1/2 ns or d5 w soon -unchanged later today Severe sepsis -f/u on cxs from outside hospital -on zosyn/ vanco -?significance of R mastoid CT findings at [facility] Appreciate consult; will follow with you. Care coordinated w/ Dr Ibarra at 1100 today.
[2016-08-01] MEDS: HEPARIN SOD 5000 UNIT/0.5 ML CARP SQ SCH ×3 (06:09→21:13)
[2016-08-01] MEDS: SODIUM CHLORIDE 0.45% 1000ML 1,000 ML IV SCH ×2 (06:11→08:10)
[2016-08-01 07:04] VITALS: BP 111/68; PULSE 65; TEMP 37.1; O2SAT 96
[2016-08-01 07:17] LABS: HEMATOCRIT 39.3 % (42-52); MEAN CELL VOLUME 96.8 fL (80-100); MEAN CORPUSCULAR HEMOGLOBIN 29.8 pg (25-34); MEAN CORPUSCULAR HGB CONC 30.8 g/dl (32-36); RED BLOOD COUNT 4.06 M/uL (4.7-6.1); WHITE BLOOD COUNT 17.15 K/uL (4.8-10.8)
[2016-08-01 07:21] LABS: MEAN PLATELET VOLUME 12.3 fL (7.4-10.4); PLATELET COUNT 85 K/uL (130-400)
[2016-08-01 07:53] LABS: BASO % 0.2 %; BASO ABS # 0.04 K/uL (0-0.2); COMPLETE YES; DOHLE BODIES 1+; EOS % 0.1 %; IG% 0.5 %; LYMPH ABS # 1.37 K/uL (1.2-3.4); MONO % 5.1 %; NEUT % 86.1 %; PLT ESTIMATE DECREASED; TOXIC GRANULATION 1+
[2016-08-01 07:57] LABS: BUN/CREATININE RATIO 24.3 (10-20); CALCIUM 7.6 mg/dl (8.5-10.1); MAGNESIUM 2.5 mg/dl (1.8-2.4)
[2016-08-01] MEDS: INSULIN ASPART 100 UNITS/ML 3 ML PEN SC SCH ×4 (08:02→20:21)
[2016-08-01] MEDS: EUCERIN CR 120 GM JAR EXT SCH ×2 (08:10→20:21)
[2016-08-01] MEDS: PIPERACILL/TAZOBAC IV 4.5 GM in DEXTROSE 5% 100ML IV SCH ×5 (08:49→23:43)
[2016-08-01 10:00] VITALS: O2SAT 93
[2016-08-01 10:58] VITALS: O2SAT 95
[2016-08-01] MEDS: VANCOMYCIN INJ 1,500 MG in SODIUM CHLORIDE 0.9% 500ML 500 ML IV SCH ×4 (11:47→23:43)
--- NOTE | 2016-08-01 13:16 | Nephrology Progress Note ---
Nephrology Progress Note Date of Service: Aug 01, 2016. Subjective moved off of tele; alert, no F; thirsty and asking to drink; pointing at his feet but can't tell me more Objective Date Time Temp Pulse Resp B/P (MAP) Pulse Ox O2 Delivery O2 Flow Rate FiO2 08/01/16 10:58 95 Room Air 08/01/16 10:00 93 Room Air 08/01/16 07:50 Nasal Cannula 3.0 08/01/16 07:04 37.1 65 18 111/68 (82) 96 2.0 07/31/16 23:59 Nasal Cannula 3.0 07/31/16 23:57 37.0 75 18 90/57 (68) 98 Room Air 07/31/16 16:52 37.0 73 18 118/61 (80) 97 Nasal Cannula 2.0 07/31/16 16:05 37.0 69 20 97 3.0 07/31/16 15:39 37.0 69 20 132/64 (86) 97 Nasal Cannula 3.0 07/31/16 13:56 113/55 (74) Physical Exam: General Appearance: WD/WN, no apparent distress (on RA) Eyes: EOMI ENT: hearing grossly normal, + muffled/hoarse voice, + pertinent finding ( Downs appearing facial features) Neck: supple Respiratory/Chest: + decreased breath sounds Cardiovascular: regular rate, rhythm, + systolic murmur Abdomen: normal bowel sounds, non tender, soft, + pertinent finding (espino w/ scant sediment rich urine) Extremities: + pedal edema (chronic indurated elephantiasis - like) Neurologic/Psych: alert, normal mood/affect (cooperative and pleasant) Skin: no jaundice, warm/dry, + pertinent finding (perineum not examined; BL feet as above; some superficial abrasions R scalp) Current Inpatient Medications Medications (Trade) Dose Ordered Sig/Saurabh Route Start Time Stop Time Status Last Admin Dose Admin Heparin Sodium (Porcine) (Heparin Sq 5000 Unit/0.5ml) 5,000 unit Q8 SQ 07/30/16 22:00 08/29/16 21:59 08/01/16 06:09 5,000 UNIT Acetaminophen (Tylenol Tab) 650 mg Q4H PRN PO 07/30/16 17:15 08/29/16 17:14 Ondansetron HCl (Zofran Inj) 4 mg Q6H PRN IV 07/30/16 17:15 08/29/16 17:14 Nitroglycerin (Nitrostat Tab) 0.4 mg UD PRN SL 07/30/16 17:15 08/29/16 17:14 Polyethylene (Miralax Powder Packet) 17 gm DAILY PRN PO 07/30/16 17:15 08/29/16 17:14 Insulin Aspart (novoLOG ASPART) SLIDING SCALE G... ACHS SC 07/30/16 21:00 08/29/16 20:59 Vancomycin HCl (Consult) 1 ea UD PRN N/A 07/30/16 17:30 08/29/16 17:29 Piperacillin Sod/ Tazobactam Sod (Consult) 1 ea UD PRN N/A 07/30/16 17:30 08/29/16 17:29 Piperacillin Sod/ Tazobactam Sod 4.5 gm/Dextrose 120 ml @ 30 mls/hr Q8H IV 07/31/16 00:00 08/07/16 00:00 08/01/16 08:49 30 MLS/HR Sodium Chloride 1,000 ml @ 150 mls/hr Q6H40M IV 07/30/16 19:30 08/29/16 19:29 08/01/16 08:10 150 MLS/HR Multi-Ingredient Ointment (Eucerin Unscented Cr) 1 appln BID EXT 07/31/16 09:00 08/30/16 08:59 08/01/16 08:10 1 APPLN Vancomycin HCl 1500 mg/Sodium Chloride 530 ml @ 200 mls/hr Q12H IV 08/01/16 12:00 08/06/16 11:59 08/01/16 11:47 200 MLS/HR Last 24 Hours Test 07/31/16 16:10 07/31/16 17:26 07/31/16 19:42 08/01/16 06:36 Bedside Glucose 95 mg/dl 90 mg/dl Sodium Level 152 mmol/L 151 mmol/L Potassium Level 4.3 mmol/L 4.0 mmol/L Chloride Level 120 mmol/L 120 mmol/L Carbon Dioxide Level 25 mmol/L 25 mmol/L Anion Gap 7.0 mmol/L 6.0 mmol/L Blood Urea Nitrogen 32 mg/dl 24 mg/dl Creatinine 1.30 mg/dl 1.00 mg/dl Est Creatinine Clear Calc Drug Dose 71.5 ml/min 93.0 ml/min Estimated GFR () 73.2 100.6 Estimated GFR (Non- 63.2 86.8 BUN/Creatinine Ratio 24.7 24.3 Random Glucose 119 mg/dl 95 mg/dl Uric Acid 6.3 mg/dl Calcium Level 8.0 mg/dl 7.6 mg/dl Magnesium Level 2.6 mg/dl 2.5 mg/dl White Blood Count 17.15 K/uL Red Blood Count 4.06 M/uL Hemoglobin 12.1 g/dL Hematocrit 39.3 % Mean Corpuscular Volume 96.8 fL Mean Corpuscular Hemoglobin 29.8 pg Mean Corpuscular Hemoglobin Concent 30.8 g/dl Platelet Count 85 K/uL Mean Platelet Volume 12.3 fL Neutrophils (%) (Auto) 86.1 % Lymphocytes (%) (Auto) 8.0 % Monocytes (%) (Auto) 5.1 % Eosinophils (%) (Auto) 0.1 % Basophils (%) (Auto) 0.2 % Neutrophils # (Auto) 14.76 K/uL Lymphocytes # (Auto) 1.37 K/uL Monocytes # (Auto) 0.88 K/uL Eosinophils # (Auto) 0.02 K/uL Basophils # (Auto) 0.04 K/uL RDW Standard Deviation 53.2 fL RDW Coefficient of Variation 14.8 % Immature Granulocyte % (Auto) 0.5 % Immature Granulocyte # (Auto) 0.08 K/uL Toxic Granulation 1+ Dohle Bodies 1+ Platelet Estimate DECREASED Test 08/01/16 07:56 Bedside Glucose 92 mg/dl Assessment & Plan 60 y/o M Downs syndrome pt transferred from outside hospital with severe sepsis > elevated lactate, F 104, hypotension, leukocytosis, presenting creatinine 3.4. Acute renal failure, non oliguric; baseline unknown but renal function improving further today -daily bmp/ cbc; elevated uric acid has normalized; elevation d/t severe volume depletion -cont strict I/O -avoid nephrotoxins Hypernatremia, barely chagned --change to D5W (orders in) Severe sepsis -f/u on cxs from outside hospital -on zosyn/ vanco -?significance of R mastoid CT findings at [facility] Appreciate consult; will follow with you. Care coordinated w/ Dr Ibarra
--- NOTE | 2016-08-01 13:40 | Progress Note ---
Internal Med Progress Note Date of Service: Aug 01, 2016. Provider Documentation: SUBJECTIVE: The patient was seen and examined Minimally verbal Not in any distress OBJECTIVE: Vital Signs-as noted below Exam: General-no acute symptoms Eyes-normal ENT-normal Neck-supple Lungs-Decreased breath sound bilaterally Heart-Regular,no murmur appreciated Abdomen-Benign,no masses,bowel sound present Extremities-Chronic edema bilaterally with chronic skin changes Dirty wartlike lesions cover almost all of the lower legs Chronic Cutaneous Mycosis,superficial ulcerations Neuro-AA Has Down syndrome Lab data as noted below. ASSESSMENT & PLAN: Severe sepsis. Suspected Aspiration pneumonia verses CAP Transferred from [facility] ER with Hypotension ,tachycardia and increased WCC Reported to have Pneumonia ,may have UTI and or skin and soft tissue infection Blood cultures-negative MRSA screen -negative Urine Culture-pending Has been on IV Zosyn and Vancomycin Lactic acid improved ,BP stable WCC increased initially and now decreasing SURAJ and Increased Uric Acid and Hypernatremia Likely secondary to Dehydration and sepsis Receiving adequet IVF with .45 saline Minimal increase in Troponin is likely due to SURAJ Monitor PRP Renal function improved ,so is Uric acid Chloride remains high-will try D5 W infusion Sodium is not yet any better Poor hygiene. He has skin excoriations in groin and back And likely skin mycosis in legs Consult wound care and follow the recommendations. Social Service for possible placement May need ID if not any better Abnormal LFT US negative for any Cholecystitis Has Steatosis Will monitor Increased CPK No known Injury and or fall Will monitor Prediabetes. We will check HbA1c levels.-5.[address] him on insulin sliding scale. Hyperlipidemia will hold statin for now. Follow lipid profile. 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 ON fluids . Monitor for volume overload.We will follow the repeat echo. Deep venous thrombosis prophylaxis heparin subQ. Level 1 full code. As per my discussion with his stepfather. Disposition Remains stable Vital Signs: Date Time Temp Pulse Resp B/P (MAP) Pulse Ox O2 Delivery O2 Flow Rate FiO2 08/01/16 10:58 95 Room Air 08/01/16 10:00 93 Room Air 08/01/16 07:50 Nasal Cannula 3.0 08/01/16 07:04 37.1 65 18 111/68 (82) 96 2.0 07/31/16 23:59 Nasal Cannula 3.0 07/31/16 23:57 37.0 75 18 90/57 (68) 98 Room Air 07/31/16 16:52 37.0 73 18 118/61 (80) 97 Nasal Cannula 2.0 07/31/16 16:05 37.0 69 20 97 3.0 07/31/16 15:39 37.0 69 20 132/64 (86) 97 Nasal Cannula 3.0 07/31/16 13:56 113/55 (74) Lab Results: Results Past 24 Hours Test 07/31/16 16:10 07/31/16 17:26 07/31/16 19:42 08/01/16 06:36 Range/Units Bedside Glucose 95 90 70-99 mg/dl Sodium Level 152 151 136-145 mmol/L Potassium Level 4.3 4.0 3.5-5.1 mmol/L Chloride Level 120 120 98-107 mmol/L Carbon Dioxide Level 25 25 21-32 mmol/L Anion Gap 7.0 6.0 3-11 mmol/L Blood Urea Nitrogen 32 24 7-18 mg/dl Creatinine 1.30 1.00 0.60-1.40 mg/dl Est Creatinine Clear Calc Drug Dose 71.5 93.0 ml/min Estimated GFR () 73.2 100.6 Estimated GFR (Non- 63.2 86.8 BUN/Creatinine Ratio 24.7 24.3 10-20 Random Glucose 119 95 70-99 mg/dl Uric Acid 6.3 2.6-7.2 mg/dl Calcium Level 8.0 7.6 8.5-10.1 mg/dl Magnesium Level 2.6 2.5 1.8-2.4 mg/dl White Blood Count 17.15 4.8-10.8 K/uL Red Blood Count 4.06 4.7-6.1 M/uL Hemoglobin 12.1 14.0-18.0 g/dL Hematocrit 39.3 42-52 % Mean Corpuscular Volume 96.8 80-100 fL Mean Corpuscular Hemoglobin 29.8 25-34 pg Mean Corpuscular Hemoglobin Concent 30.8 32-36 g/dl Platelet Count 85 130-400 K/uL Mean Platelet Volume 12.3 7.4-10.4 fL Neutrophils (%) (Auto) 86.1 % Lymphocytes (%) (Auto) 8.0 % Monocytes (%) (Auto) 5.1 % Eosinophils (%) (Auto) 0.1 % Basophils (%) (Auto) 0.2 % Neutrophils # (Auto) 14.76 1.4-6.5 K/uL Lymphocytes # (Auto) 1.37 1.2-3.4 K/uL Monocytes # (Auto) 0.88 0.11-0.59 K/uL Eosinophils # (Auto) 0.02 0-0.5 K/uL Basophils # (Auto) 0.04 0-0.2 K/uL RDW Standard Deviation 53.2 36.4-46.3 fL RDW Coefficient of Variation 14.8 11.5-14.5 % Immature Granulocyte % (Auto) 0.5 % Immature Granulocyte # (Auto) 0.08 0.00-0.02 K/uL Toxic Granulation 1+ Dohle Bodies 1+ Platelet Estimate DECREASED Test 08/01/16 07:56 08/01/16 11:19 Range/Units Bedside Glucose 92 91 70-99 mg/dl
[2016-08-01] MEDS: DEXTROSE 5% 1000ML 1,000 ML IV SCH (14:17)
[2016-08-01 15:08] VITALS: BP 111/64; PULSE 83; TEMP 36.5; O2SAT 94
[2016-08-01] MEDS ORDERED: VANCOMYCIN INJ 1,100 MG in SODIUM CHLORIDE 0.9% 250ML 250 ML IV SCH (15:30)
--- NOTE | 2016-08-01 15:45 | Pharmacy Progress Note ---
Pharmacy Antibiotic Prog Note Date of Service Aug 01, 2016. Subjective The patient is currently receiving vancomycin 1500 mg IV every 16 hours, and Zosyn 4.5 Gm extended infusion every 8 hr. The patient is currently on day # 3 of vancomycin and Zosyn IV therapy. Objective Height (Feet): 5 Height (Inches): 2.00 Weight (Kilograms): 106.200 Levels: no new levels Lab Results (24hrs): Test 07/31/16 17:26 08/01/16 06:36 08/01/16 07:56 08/01/16 11:19 Sodium Level 152 mmol/L (136-145) 151 mmol/L (136-145) Potassium Level 4.3 mmol/L (3.5-5.1) 4.0 mmol/L (3.5-5.1) Chloride Level 120 mmol/L (98-107) 120 mmol/L (98-107) Carbon Dioxide Level 25 mmol/L (21-32) 25 mmol/L (21-32) Anion Gap 7.0 mmol/L (3-11) 6.0 mmol/L (3-11) Blood Urea Nitrogen 32 mg/dl (7-18) 24 mg/dl (7-18) Creatinine 1.30 mg/dl (0.60-1.40) 1.00 mg/dl (0.60-1.40) Est Creatinine Clear Calc Drug Dose 71.5 ml/min 93.0 ml/min Estimated GFR () 73.2 100.6 Estimated GFR (Non- 63.2 86.8 BUN/Creatinine Ratio 24.7 (10-20) 24.3 (10-20) Random Glucose 119 mg/dl (70-99) 95 mg/dl (70-99) Uric Acid 6.3 mg/dl (2.6-7.2) Calcium Level 8.0 mg/dl (8.5-10.1) 7.6 mg/dl (8.5-10.1) Magnesium Level 2.6 mg/dl (1.8-2.4) 2.5 mg/dl (1.8-2.4) White Blood Count 17.15 K/uL (4.8-10.8) Red Blood Count 4.06 M/uL (4.7-6.1) Hemoglobin 12.1 g/dL (14.0-18.0) Hematocrit 39.3 % (42-52) Mean Corpuscular Volume 96.8 fL (80-100) Mean Corpuscular Hemoglobin 29.8 pg (25-34) Mean Corpuscular Hemoglobin Concent 30.8 g/dl (32-36) Platelet Count 85 K/uL (130-400) Mean Platelet Volume 12.3 fL (7.4-10.4) Neutrophils (%) (Auto) 86.1 % Lymphocytes (%) (Auto) 8.0 % Monocytes (%) (Auto) 5.1 % Eosinophils (%) (Auto) 0.1 % Basophils (%) (Auto) 0.2 % Neutrophils # (Auto) 14.76 K/uL (1.4-6.5) Lymphocytes # (Auto) 1.37 K/uL (1.2-3.4) Monocytes # (Auto) 0.88 K/uL (0.11-0.59) Eosinophils # (Auto) 0.02 K/uL (0-0.5) Basophils # (Auto) 0.04 K/uL (0-0.2) RDW Standard Deviation 53.2 fL (36.4-46.3) RDW Coefficient of Variation 14.8 % (11.5-14.5) Immature Granulocyte % (Auto) 0.5 % Immature Granulocyte # (Auto) 0.08 K/uL (0.00-0.02) Toxic Granulation 1+ Dohle Bodies 1+ Platelet Estimate DECREASED Bedside Glucose 92 mg/dl (70-99) 91 mg/dl (70-99) Renal function significantly improved. Micro Results: 07/30 blood x2 NGTD 07/30 nasal swab neg MRSA 07/31 urine NG Recent Pertinent Medications Item Value Date Time Vancomycin HCl 272 ml @ 125 mls/hr 08/01/16 1530 1100 mg/Sodium TODAY@1530/IV Chloride Vancomycin HCl 530 ml @ 200 mls/hr 08/01/16 1200 1500 mg/Sodium Q12H/IV 08/01/16 1147 Chloride Vancomycin HCl 530 ml @ 200 mls/hr 07/31/16 0800 1500 mg/Sodium Q16H/IV 08/01/16 0000 Chloride Piperacillin Sod/ 120 ml @ 30 mls/hr 07/31/16 0000 Tazobactam Sod Q8H/IV 08/01/16 0849 4.5 gm/Dextrose Assessment & Plan Day 3 of vancomycin/Zosyn for sepsis- pulmonary vs UTI vs LE wound. Renal function significantly improved, so will shorten dosing interval and check a trough after a few doses. Change to vancomycin 1500 mg IV every 12 hours. Patient pulled out both IV lines. RN reports he received 130 ml/530 ml of vancomycin infusing. When IV restarted gave a makeup dose and retimed antibiotics and levels. Goal trough level estimate: between 15-20 mcg/mL. Trough level has been ordered for: 08/02/16 before 1600 dose. No change in Zosyn dose for CrCl still greater than 20 ml/min. Pharmacy will continue to follow and will adjust dose/frequency as necessary. Thank you
[2016-08-01 17:35] LABS: BUN/CREATININE RATIO 21.6 (10-20); CALCIUM 7.6 mg/dl (8.5-10.1); CREATININE 0.95 mg/dl (0.60-1.40); MAGNESIUM 2.5 mg/dl (1.8-2.4); POTASSIUM 3.9 mmol/L (3.5-5.1)
[2016-08-01 18:05] LABS: PHOSPHORUS 1.1 mg/dl (2.5-4.9)
[2016-08-01] MEDS ORDERED: POTASSIUM PHOS 3 MMOL/1 ML INFUSION IV STA (18:45)
[2016-08-01] MEDS ORDERED: POTASSIUM PHOSPHATE INJ 30 MMOL in SODIUM CHLORIDE 0.9% 500ML 500 ML IV ONE (20:15)
[2016-08-01] MEDS ORDERED: VANCOMYCIN TROUGH SCH (23:30)
[2016-08-02] MEDS: DEXTROSE 5% 1000ML 1,000 ML IV SCH ×2 (01:37→14:23)
[2016-08-02] MEDS: HEPARIN SOD 5000 UNIT/0.5 ML CARP SQ SCH ×3 (05:55→21:55)
[2016-08-02 07:08] LABS: BUN/CREATININE RATIO 17.5 (10-20); CALCIUM 7.4 mg/dl (8.5-10.1); CREATININE 0.84 mg/dl (0.60-1.40); MAGNESIUM 2.3 mg/dl (1.8-2.4); POTASSIUM 3.9 mmol/L (3.5-5.1)
[2016-08-02 07:10] LABS: PHOSPHORUS 1.8 mg/dl (2.5-4.9)
[2016-08-02 07:18] LABS: HEMATOCRIT 35.3 % (42-52); MEAN CELL VOLUME 95.1 fL (80-100); MEAN CORPUSCULAR HEMOGLOBIN 29.9 pg (25-34); MEAN CORPUSCULAR HGB CONC 31.4 g/dl (32-36); MEAN PLATELET VOLUME 12.5 fL (7.4-10.4); PLATELET COUNT 96 K/uL (130-400); RED BLOOD COUNT 3.71 M/uL (4.7-6.1); WHITE BLOOD COUNT 12.84 K/uL (4.8-10.8)
[2016-08-02 07:19] LABS: BASO % 0.4 %; BASO ABS # 0.05 K/uL (0-0.2); LYMPH % 11.9 %; LYMPH ABS # 1.53 K/uL (1.2-3.4); MONO % 5.5 %; NEUT % 80.2 %
[2016-08-02 07:51] LABS: COMPLETE YES
[2016-08-02] MEDS: INSULIN ASPART 100 UNITS/ML 3 ML PEN SC SCH ×4 (08:13→20:48)
[2016-08-02] MEDS: EUCERIN CR 120 GM JAR EXT SCH ×2 (08:14→20:00)
[2016-08-02] MEDS: PIPERACILL/TAZOBAC IV 4.5 GM in DEXTROSE 5% 100ML IV SCH (08:17)
[2016-08-02] MEDS ORDERED: POTASSIUM PHOS 3 MMOL/1 ML INFUSION IV STA (09:24)
[2016-08-02] MEDS: ACETAMINOPHEN 325 MG TAB PO PRN (10:14)
[2016-08-02] MEDS ORDERED: POTASSIUM PHOSPHATE INJ 30 MMOL in SODIUM CHLORIDE 0.9% 500ML 500 ML IV SCH (10:30)
[2016-08-02 10:44] VITALS: BP 116/69; PULSE 72; TEMP 36.6; O2SAT 96
--- NOTE | 2016-08-02 13:47 | Progress Note ---
Internal Med Progress Note Date of Service: Aug 02, 2016. Provider Documentation: SUBJECTIVE: The patient was seen and examined Minimally verbal Not in any distress No acute events since admission OBJECTIVE: Vital Signs-as noted below Exam: General-no acute symptoms Eyes-normal ENT-normal Neck-supple Lungs-Decreased breath sound bilaterally Heart-Regular,no murmur appreciated Abdomen-Benign,no masses,bowel sound present Extremities-Abrasion and excoriation and infection involving left groin and lateral to the gluteal folds No active drainage Chronic edema bilaterally with chronic skin changes Dirty wartlike lesions cover almost all of the lower legs Chronic Cutaneous Mycosis,superficial ulcerations Neuro-AA Has Down syndrome Lab data as noted below. ASSESSMENT & PLAN: Severe sepsis. Suspected Aspiration pneumonia verses CAP Transferred from [facility] with Hypotension ,tachycardia and increased WCC Reported to have Pneumonia ,may have UTI and or skin and soft tissue infection Blood cultures-negative MRSA screen -negative Urine Culture-negative Has been on IV Zosyn and Vancomycin Lactic acid improved ,BP stable WCC increased initially and now decreasing Discontinue Vancomycin Has been on Zosyn-will changed to Unasyn and transition to Augmentin SURAJ and Increased Uric Acid and Hypernatremia Likely secondary to Dehydration and sepsis Receiving adequet IVF with .45 saline Minimal increase in Troponin is likely due to SURAJ Monitor PRP Renal function improved ,so is Uric acid Chloride remains high-will try D5 W infusion Sodium and Renal function are improving Electrolytes Imbalance Will supplement and monitor Poor hygiene. He has skin excoriations in groin and back And likely skin mycosis in legs Consult wound care and follow the recommendations. Social Service for possible placement May need ID if not any better Abnormal LFT US negative for any Cholecystitis Has Steatosis Will monitor Increased CPK No known Injury and or fall Will monitor Prediabetes. We will check HbA1c levels.-5.4 [address] him on insulin sliding scale. Hyperlipidemia will hold statin for now. Follow lipid profile. 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 ON fluids . Monitor for volume overload.We will follow the repeat echo. Deep venous thrombosis prophylaxis heparin subQ. Level 1 full code. As per my discussion with his stepfather. Disposition Remains stable Vital Signs: Date Time Temp Pulse Resp B/P (MAP) Pulse Ox O2 Delivery O2 Flow Rate FiO2 08/02/16 10:44 36.6 72 18 116/69 (85) 96 Room Air 08/02/16 08:20 Nasal Cannula 3.0 08/02/16 00:00 Room Air 08/01/16 16:00 Room Air 08/01/16 15:08 36.5 83 18 111/64 (80) 94 Room Air Lab Results: Results Past 24 Hours Test 08/01/16 16:24 08/01/16 17:00 08/01/16 20:04 08/02/16 06:21 Range/Units Bedside Glucose 93 96 70-99 mg/dl Sodium Level 147 146 136-145 mmol/L Potassium Level 3.9 3.9 3.5-5.1 mmol/L Chloride Level 116 114 98-107 mmol/L Carbon Dioxide Level 25 26 21-32 mmol/L Anion Gap 6.0 6.0 3-11 mmol/L Blood Urea Nitrogen 21 15 7-18 mg/dl Creatinine 0.95 0.84 0.60-1.40 mg/dl Est Creatinine Clear Calc Drug Dose 97.9 110.7 ml/min Estimated GFR () 107.0 117.5 Estimated GFR (Non- 92.3 101.4 BUN/Creatinine Ratio 21.6 17.5 10-20 Random Glucose 89 96 70-99 mg/dl Calcium Level 7.6 7.4 8.5-10.1 mg/dl Phosphorus Level 1.1 1.8 2.5-4.9 mg/dl Magnesium Level 2.5 2.3 1.8-2.4 mg/dl White Blood Count 12.84 4.8-10.8 K/uL Red Blood Count 3.71 4.7-6.1 M/uL Hemoglobin 11.1 14.0-18.0 g/dL Hematocrit 35.3 42-52 % Mean Corpuscular Volume 95.1 80-100 fL Mean Corpuscular Hemoglobin 29.9 25-34 pg Mean Corpuscular Hemoglobin Concent 31.4 32-36 g/dl Platelet Count 96 130-400 K/uL Mean Platelet Volume 12.5 7.4-10.4 fL Neutrophils (%) (Auto) 80.2 % Lymphocytes (%) (Auto) 11.9 % Monocytes (%) (Auto) 5.5 % Eosinophils (%) (Auto) 1.0 % Basophils (%) (Auto) 0.4 % Neutrophils # (Auto) 10.29 1.4-6.5 K/uL Lymphocytes # (Auto) 1.53 1.2-3.4 K/uL Monocytes # (Auto) 0.71 0.11-0.59 K/uL Eosinophils # (Auto) 0.13 0-0.5 K/uL Basophils # (Auto) 0.05 0-0.2 K/uL RDW Standard Deviation 49.2 36.4-46.3 fL RDW Coefficient of Variation 14.0 11.5-14.5 % Immature Granulocyte % (Auto) 1.0 % Immature Granulocyte # (Auto) 0.13 0.00-0.02 K/uL Test 08/02/16 07:57 Range/Units Bedside Glucose 97 70-99 mg/dl
[2016-08-02] MEDS ORDERED: AMPICILLIN/SULBACTAM SOD INJ 3,000 MG in SODIUM CHLORIDE 0.9% 100ML 100 ML IV SCH (14:00)
[2016-08-02] MEDS ORDERED: NURSING VERBAL MED ORDER ONE (14:30)
[2016-08-02] MEDS ORDERED: MENTHOL-ZINC OXIDE 360 APPLN/120 GM TUBE EXT PRN (14:45)
[2016-08-02] MEDS ORDERED: AMMONIUM LACTATE 12% LOTION 225 GM BTL EXT PRN (14:45)
[2016-08-02 14:49] VITALS: BP 114/63; PULSE 66; TEMP 36.3; O2SAT 99
[2016-08-02] MEDS ORDERED: VANCOMYCIN TROUGH SCH (15:30)
[2016-08-02] MEDS: AMPICILLIN/SULBACTAM SOD INJ 3,000 MG in SODIUM CHLORIDE 0.9% 100ML 100 ML IV SCH ×2 (16:00→21:51)
[2016-08-02] MEDS: MENTHOL-ZINC OXIDE 360 APPLN/120 GM TUBE EXT SCH ×2 (16:00→21:51)
[2016-08-02] MEDS: AMMONIUM LACTATE 12% LOTION 225 GM BTL EXT PRN (21:58)
[2016-08-02 22:45] VITALS: BP 112/68; PULSE 72; TEMP 36.6; O2SAT 97
[2016-08-03] MEDS: DEXTROSE 5% 1000ML 1,000 ML IV SCH ×2 (02:26→14:30)
[2016-08-03] MEDS: AMPICILLIN/SULBACTAM SOD INJ 3,000 MG in SODIUM CHLORIDE 0.9% 100ML 100 ML IV SCH ×4 (03:47→21:54)
[2016-08-03] MEDS: HEPARIN SOD 5000 UNIT/0.5 ML CARP SQ SCH ×3 (05:38→21:59)
[2016-08-03] MEDS: MENTHOL-ZINC OXIDE 360 APPLN/120 GM TUBE EXT SCH ×3 (05:40→21:55)
[2016-08-03] MEDS: INSULIN ASPART 100 UNITS/ML 3 ML PEN SC SCH ×4 (06:30→22:00)
[2016-08-03 07:23] VITALS: BP 109/69; PULSE 61; TEMP 36.4; O2SAT 98
[2016-08-03 08:00] VITALS: O2SAT 98
[2016-08-03] MEDS: EUCERIN CR 120 GM JAR EXT SCH ×2 (08:10→19:39)
--- NOTE | 2016-08-03 13:35 | Progress Note ---
Internal Med Progress Note Date of Service: Aug 03, 2016. Provider Documentation: SUBJECTIVE: The patient was seen and examined Minimally verbal Not in any distress No acute events since admission Clinically improved OBJECTIVE: Vital Signs-as noted below Exam: General-no acute symptoms Eyes-normal ENT-normal Neck-supple Lungs-Decreased breath sound bilaterally Heart-Regular,no murmur appreciated Abdomen-Benign,no masses,bowel sound present Extremities-Abrasion and excoriation and infection involving left groin and lateral to the gluteal folds No active drainage Chronic edema bilaterally with chronic skin changes Dirty wartlike lesions cover almost all of the lower legs Chronic Cutaneous Mycosis,superficial ulcerations Neuro-AA Has Down syndrome Lab data as noted below. ASSESSMENT & PLAN: Severe sepsis. Suspected Aspiration pneumonia verses CAP Transferred from [facility] ER with Hypotension ,tachycardia and increased WCC Reported to have Pneumonia ,may have UTI and or skin and soft tissue infection Blood cultures-negative,MRSA screen -negative ,Urine Culture-negative Was on IV Zosyn and Vancomycin Lactic acid improved ,BP stable WCC increased initially and now decreasing and normalized Discontinue Vancomycin Has been on Zosyn-will changed to Unasyn and transition to Augmentin WCC improved ,No Fever,chills Clinically a lot better SURAJ and Increased Uric Acid and Hypernatremia Likely secondary to Dehydration and sepsis Receiving adequet IVF with .45 saline Minimal increase in Troponin is likely due to SURAJ Monitor PRP Renal function improved ,so is Uric acid Chloride remains high-will try D5 W infusion Sodium and Renal function are improved Electrolytes Imbalance Will supplement and monitor Poor hygiene. He has skin excoriations in groin and back And likely skin mycosis in legs Consult wound care and follow the recommendations. Social Service for possible placement May need ID if not any better Legs and the groin wounds are much improved Abnormal LFT US negative for any Cholecystitis Has Steatosis Will monitor Increased CPK No known Injury and or fall Will monitor Prediabetes. We will check HbA1c levels.-5.[address] him on insulin sliding scale. Hyperlipidemia will hold statin for now. Follow lipid profile. 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 ON fluids . Monitor for volume overload.We will follow the repeat echo. Deep venous thrombosis prophylaxis heparin subQ. Level 1 full code. As per my discussion with his stepfather. Disposition Remains stable Vital Signs: Date Time Temp Pulse Resp B/P (MAP) Pulse Ox O2 Delivery O2 Flow Rate FiO2 08/03/16 08:00 98 Room Air 08/03/16 07:23 36.4 61 18 109/69 (82) 98 Room Air 08/03/16 00:00 Room Air 08/02/16 22:45 36.6 72 18 112/68 (83) 97 Room Air 08/02/16 16:00 Room Air 08/02/16 14:49 36.3 66 20 114/63 (80) 99 Room Air Lab Results: Results Past 24 Hours Test 08/02/16 16:52 08/02/16 20:18 08/03/16 07:49 08/03/16 11:58 Range/Units Bedside Glucose 101 92 94 101 70-99 mg/dl
[2016-08-03 15:05] VITALS: BP 112/69; PULSE 66; TEMP 36.5; O2SAT 96
[2016-08-03 16:00] VITALS: O2SAT 98
[2016-08-03] MEDS: AMMONIUM LACTATE 12% LOTION 225 GM BTL EXT PRN (19:40)
[2016-08-03 23:07] VITALS: BP 121/65; PULSE 72; TEMP 36.5; O2SAT 96
[2016-08-04] MEDS: DEXTROSE 5% 1000ML 1,000 ML IV SCH ×2 (03:41→16:58)
[2016-08-04] MEDS: AMPICILLIN/SULBACTAM SOD INJ 3,000 MG in SODIUM CHLORIDE 0.9% 100ML 100 ML IV SCH ×4 (03:41→21:39)
[2016-08-04] MEDS: INSULIN ASPART 100 UNITS/ML 3 ML PEN SC SCH ×4 (06:30→20:38)
[2016-08-04] MEDS: HEPARIN SOD 5000 UNIT/0.5 ML CARP SQ SCH ×3 (06:44→21:36)
[2016-08-04] MEDS: MENTHOL-ZINC OXIDE 360 APPLN/120 GM TUBE EXT SCH ×3 (06:45→21:33)
[2016-08-04 06:59] VITALS: BP 109/78; PULSE 59; TEMP 36.5; O2SAT 98
[2016-08-04 08:00] VITALS: O2SAT 98
[2016-08-04] MEDS: EUCERIN CR 120 GM JAR EXT SCH ×2 (08:05→19:46)
[2016-08-04 09:05] LABS: HEMATOCRIT 35.2 % (42-52); MEAN CELL VOLUME 94.1 fL (80-100); MEAN CORPUSCULAR HEMOGLOBIN 31.3 pg (25-34); MEAN CORPUSCULAR HGB CONC 33.2 g/dl (32-36); MEAN PLATELET VOLUME 12.3 fL (7.4-10.4); PLATELET COUNT 197 K/uL (130-400); RED BLOOD COUNT 3.74 M/uL (4.7-6.1); WHITE BLOOD COUNT 9.58 K/uL (4.8-10.8)
[2016-08-04 09:33] LABS: CALCIUM 7.7 mg/dl (8.5-10.1)
[2016-08-04 09:38] LABS: BUN/CREATININE RATIO 11.2 (10-20); CREATININE 0.74 mg/dl (0.60-1.40); MAGNESIUM 2.3 mg/dl (1.8-2.4); POTASSIUM 3.6 mmol/L (3.5-5.1)
[2016-08-04 09:41] LABS: PHOSPHORUS 2.4 mg/dl (2.5-4.9)
[2016-08-04 15:03] VITALS: BP 131/76; PULSE 71; TEMP 37.1; O2SAT 94
--- NOTE | 2016-08-04 15:25 | Progress Note ---
Internal Med Progress Note Date of Service: Aug 04, 2016. Provider Documentation: SUBJECTIVE: The patient was seen and examined Minimally verbal Not in any distress No acute events since admission Clinically improved a lot OBJECTIVE: Vital Signs-as noted below Exam: General-no acute symptoms Eyes-normal ENT-normal Neck-supple Lungs-Decreased breath sound bilaterally Heart-Regular,no murmur appreciated Abdomen-Benign,no masses,bowel sound present Extremities-Abrasion and excoriation and infection involving left groin and lateral to the gluteal folds No active drainage Chronic edema bilaterally with chronic skin changes Dirty wartlike lesions cover almost all of the lower legs Chronic Cutaneous Mycosis,superficial ulcerations Overall improvement of the condition Neuro-AA Has Down syndrome Lab data as noted below. ASSESSMENT & PLAN: Severe sepsis. Suspected Aspiration pneumonia verses CAP Transferred from [facility] ER with Hypotension ,tachycardia and increased WCC Reported to have Pneumonia ,may have UTI and or skin and soft tissue infection Blood cultures-negative,MRSA screen -negative ,Urine Culture-negative Was on IV Zosyn and Vancomycin Lactic acid improved ,BP stable WCC increased initially and now decreasing and normalized Discontinue Vancomycin Has been on Zosyn-will changed to Unasyn and transition to Augmentin WCC improved ,No Fever,chills Clinically a lot better Wounds are much improved SURAJ and Increased Uric Acid and Hypernatremia Likely secondary to Dehydration and sepsis Receiving adequet IVF with .45 saline Minimal increase in Troponin is likely due to SURAJ Monitor PRP Renal function improved ,so is Uric acid Chloride remains high-will try D5 W infusion Sodium and Renal function are improved and normalized Electrolytes Imbalance Will supplement and monitor Corrected Poor hygiene. He has skin excoriations in groin and back And likely skin mycosis in legs Consult wound care and follow the recommendations. Social Service for possible placement May need ID if not any better Legs and the groin wounds are much improved Will need care in a residential Abnormal LFT US negative for any Cholecystitis Has Steatosis Will monitor-improved Increased CPK No known Injury and or fall Prediabetes. We will check HbA1c levels.-5.4 [address] him on insulin sliding scale. Hyperlipidemia will hold statin for now. Follow lipid profile. 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 ON fluids . Monitor for volume overload.We will follow the repeat echo. Deep venous thrombosis prophylaxis heparin subQ. Level 1 full code. As per my discussion with his stepfather. Disposition Remains stable Vital Signs: Date Time Temp Pulse Resp B/P (MAP) Pulse Ox O2 Delivery O2 Flow Rate FiO2 08/04/16 15:03 37.1 71 20 131/76 (94) 94 Room Air 08/04/16 08:00 98 Room Air 08/04/16 06:59 36.5 59 18 109/78 (88) 98 Room Air 08/03/16 23:59 Room Air 08/03/16 23:07 36.5 72 16 121/65 (83) 96 Room Air 08/03/16 16:00 98 Room Air Lab Results: Results Past 24 Hours Test 08/03/16 16:34 08/03/16 19:50 08/04/16 08:05 08/04/16 08:12 Range/Units Bedside Glucose 89 120 107 70-99 mg/dl White Blood Count 9.58 4.8-10.8 K/uL Red Blood Count 3.74 4.7-6.1 M/uL Hemoglobin 11.7 14.0-18.0 g/dL Hematocrit 35.2 42-52 % Mean Corpuscular Volume 94.1 80-100 fL Mean Corpuscular Hemoglobin 31.3 25-34 pg Mean Corpuscular Hemoglobin Concent 33.2 32-36 g/dl RDW Standard Deviation 47.0 36.4-46.3 fL RDW Coefficient of Variation 13.6 11.5-14.5 % Platelet Count 197 130-400 K/uL Mean Platelet Volume 12.3 7.4-10.4 fL Sodium Level 145 136-145 mmol/L Potassium Level 3.6 3.5-5.1 mmol/L Chloride Level 110 98-107 mmol/L Carbon Dioxide Level 29 21-32 mmol/L Anion Gap 6.0 3-11 mmol/L Blood Urea Nitrogen 8 7-18 mg/dl Creatinine 0.74 0.60-1.40 mg/dl Est Creatinine Clear Calc Drug Dose 125.7 ml/min Estimated GFR () 123.8 Estimated GFR (Non- 106.8 BUN/Creatinine Ratio 11.2 10-20 Random Glucose 95 70-99 mg/dl Calcium Level 7.7 8.5-10.1 mg/dl Phosphorus Level 2.4 2.5-4.9 mg/dl Magnesium Level 2.3 1.8-2.4 mg/dl Total Bilirubin 0.5 0.2-1 mg/dl Direct Bilirubin 0.1 0-0.2 mg/dl Aspartate Amino Transf (AST/SGOT) 44 15-37 U/L Alanine Aminotransferase (ALT/SGPT) 39 12-78 U/L Alkaline Phosphatase 41 45-117 U/L Total Protein 5.7 6.4-8.2 gm/dl Albumin 1.6 3.4-5.0 gm/dl Test 08/04/16 11:47 Range/Units Bedside Glucose 95 70-99 mg/dl
[2016-08-04 16:00] VITALS: O2SAT 98
[2016-08-04] MEDS: AMMONIUM LACTATE 12% LOTION 225 GM BTL EXT PRN (19:47)
[2016-08-05] MEDS: AMPICILLIN/SULBACTAM SOD INJ 3,000 MG in SODIUM CHLORIDE 0.9% 100ML 100 ML IV SCH ×2 (04:15→10:18)
[2016-08-05] MEDS: DEXTROSE 5% 1000ML 1,000 ML IV SCH (04:16)
[2016-08-05] MEDS: HEPARIN SOD 5000 UNIT/0.5 ML CARP SQ SCH ×3 (05:54→21:15)
[2016-08-05 06:28] LABS: HEMATOCRIT 37.1 % (42-52); MEAN CELL VOLUME 94.9 fL (80-100); MEAN CORPUSCULAR HGB CONC 33.7 g/dl (32-36); MEAN PLATELET VOLUME 11.8 fL (7.4-10.4); PLATELET COUNT 279 K/uL (130-400); RED BLOOD COUNT 3.91 M/uL (4.7-6.1); WHITE BLOOD COUNT 11.73 K/uL (4.8-10.8)
[2016-08-05] MEDS: INSULIN ASPART 100 UNITS/ML 3 ML PEN SC SCH ×4 (06:30→20:29)
[2016-08-05] MEDS: MENTHOL-ZINC OXIDE 360 APPLN/120 GM TUBE EXT SCH ×3 (06:34→21:17)
[2016-08-05 07:11] VITALS: BP 117/68; PULSE 65; TEMP 36.5; O2SAT 94
[2016-08-05] MEDS: EUCERIN CR 120 GM JAR EXT SCH ×2 (07:31→20:00)
[2016-08-05] MEDS: AMMONIUM LACTATE 12% LOTION 225 GM BTL EXT PRN ×2 (07:33→21:23)
[2016-08-05 08:00] VITALS: O2SAT 94
--- NOTE | 2016-08-05 09:16 | CONSULTATION REPORT ---
DATE OF CONSULTATION: 08/02/2016 CHIEF COMPLAINT: Deep tissue injury and ulcerations to the groin region. HISTORY OF PRESENT ILLNESS: The patient was recently admitted 2 days prior for the management of a sepsis. The patient has significant history of Down syndrome and is essentially nonverbal. The patient is unable to give any additional history at this time. The patient has been living with a mother and stepfather and the care has been questionable in regards to his overall status. The patient at the current time is in no distress and is very cooperative to our commands. PAST MEDICAL HISTORY: Unknown and unavailable at this time. MEDICATIONS: Noted in the nursing notes and were reviewed. ALLERGIES: None. REVIEW OF SYSTEMS: Ten systems were unobtainable from the patient due to his nonverbal status. PHYSICAL EXAMINATION: VITAL SIGNS: Reviewed and found to be unremarkable. The patient is afebrile. GENERAL: The patient is lying in hospital bed, in no acute distress, alert and cooperative throughout the examination. HEENT: Pupils equal and reactive to light. Sclerae clear. NECK: Supple. CHEST: Heart and lungs clear to auscultation. GROIN AND THIGH: The groin and the left thigh region shows the presence of a deep tissue injury with no active drainage at this time. There is some eschar formation present in the area. There is no bleeding or drainage noted. The area measures 23 x 2 x 0.1 cm. There is some scattered superficial ulcerations in the base of the scrotal region. Again, no active drainage noted. DISTAL EXTREMITIES: Reveal the presence of significant skin changes to both feet and ankles regions with excess callus and eschar formation present. No ____ open ulcers are noted. No drainage is present. NEUROLOGIC: The patient is alert, cooperative, no apparent focal deficits noted. IMPRESSION: Deep tissue injury to the left groin region with associated diaper rash. PLAN: At this time, no debridement is indicated. The site will be managed with a Kaltostat, dressings to be changed on a daily basis. The patient will continue to be monitored while on the inpatient and evaluated as indicated. Also, there will be some Lac-Hydrin applied to both feet and ankle region to help loosen the eschar and callus formations present. This can be done on a daily basis.
--- NOTE | 2016-08-05 15:36 | Progress Note ---
Internal Med Progress Note Date of Service: Aug 05, 2016. Provider Documentation: SUBJECTIVE: The patient was seen and examined Minimally verbal Not in any distress No acute events since admission Clinically improved a lot Discussed with the Brother from [place] -willing to anything to make his brother better OBJECTIVE: Vital Signs-as noted below Exam: General-no acute symptoms Eyes-normal ENT-normal Neck-supple Lungs-Decreased breath sound bilaterally Heart-Regular,no murmur appreciated Abdomen-Benign,no masses,bowel sound present Extremities-Abrasion and excoriation and infection involving left groin and lateral to the gluteal folds No active drainage Chronic edema bilaterally with chronic skin changes Dirty wartlike lesions cover almost all of the lower legs Chronic Cutaneous Mycosis,superficial ulcerations Overall improvement of the condition Neuro-AA Has Down syndrome Lab data as noted below. ASSESSMENT & PLAN: Severe sepsis. Suspected Aspiration pneumonia verses CAP Transferred from [facility] ER with Hypotension ,tachycardia and increased WCC Reported to have Pneumonia ,may have UTI and or skin and soft tissue infection Blood cultures-negative,MRSA screen -negative ,Urine Culture-negative Was on IV Zosyn and Vancomycin Lactic acid improved ,BP stable WCC increased initially and now decreasing and normalized Discontinue Vancomycin Has been on Zosyn-will changed to Unasyn and transition to Augmentin WCC improved ,No Fever,chills Wounds are much improved Unasyn changed to Augmentin from 08/05 and will need to continue for a total of 14 days Wound clinic follow up SURAJ and Increased Uric Acid and Hypernatremia Likely secondary to Dehydration and sepsis Receiving adequet IVF with .45 saline Minimal increase in Troponin is likely due to SURAJ Monitor PRP Renal function improved ,so is Uric acid Chloride remains high-will try D5 W infusion Sodium and Renal function are improved and normalized Electrolytes Imbalance Will supplement and monitor Corrected Poor Hygiene. He has skin excoriations in groin and back And likely skin mycosis in legs Consult wound care and follow the recommendations. Social Service for possible placement May need ID if not any better Legs and the groin wounds are much improved Will need care in a long term and maintain good hygiene to prevent further infection Abnormal LFT US negative for any Cholecystitis Has Steatosis Will monitor-improved Increased CPK No known Injury and or fall Prediabetes. We will check HbA1c levels.-5.[address] him on insulin sliding scale. Hyperlipidemia will hold statin for now. Follow lipid profile. 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 ON fluids . Monitor for volume overload.We will follow the repeat echo. Deep venous thrombosis prophylaxis heparin subQ. Level 1 full code. As per my discussion with his stepfather. Disposition Transfer to [facility] when accepted Vital Signs: Date Time Temp Pulse Resp B/P (MAP) Pulse Ox O2 Delivery O2 Flow Rate FiO2 08/05/16 08:00 94 Room Air 08/05/16 07:11 36.5 65 16 117/68 (84) 94 Room Air 08/05/16 00:00 Room Air 08/04/16 16:00 98 Room Air Lab Results: Results Past 24 Hours Test 08/04/16 16:21 08/04/16 20:15 08/05/16 05:55 08/05/16 07:38 Range/Units Bedside Glucose 109 101 103 70-99 mg/dl White Blood Count 11.73 4.8-10.8 K/uL Red Blood Count 3.91 4.7-6.1 M/uL Hemoglobin 12.5 14.0-18.0 g/dL Hematocrit 37.1 42-52 % Mean Corpuscular Volume 94.9 80-100 fL Mean Corpuscular Hemoglobin 32.0 25-34 pg Mean Corpuscular Hemoglobin Concent 33.7 32-36 g/dl RDW Standard Deviation 47.7 36.4-46.3 fL RDW Coefficient of Variation 13.9 11.5-14.5 % Platelet Count 279 130-400 K/uL Mean Platelet Volume 11.8 7.4-10.4 fL
[2016-08-05 15:41] VITALS: BP 108/68; PULSE 77; TEMP 36.4; O2SAT 95
[2016-08-05 16:00] VITALS: O2SAT 94
[2016-08-05] MEDS: AMOXICILLIN/CLAVULANATE TAB 875 MG TAB PO SCH ×2 (16:01→20:28)
[2016-08-05] MEDS: ACETAMINOPHEN 325 MG TAB PO PRN (19:08)
[2016-08-05] MEDS: BOOST VANILLA PO SCH ×2 (20:28)
[2016-08-06 00:10] VITALS: BP 86/52; PULSE 60; TEMP 37.1; O2SAT 92
[2016-08-06] MEDS: HEPARIN SOD 5000 UNIT/0.5 ML CARP SQ SCH ×3 (06:05→21:37)
[2016-08-06] MEDS: MENTHOL-ZINC OXIDE 360 APPLN/120 GM TUBE EXT SCH ×3 (06:07→21:51)
[2016-08-06] MEDS: INSULIN ASPART 100 UNITS/ML 3 ML PEN SC SCH ×4 (06:30→21:15)
[2016-08-06 07:35] VITALS: BP 108/71; PULSE 64; TEMP 36.6; O2SAT 96
[2016-08-06] MEDS: BOOST VANILLA PO SCH ×4 (08:29→20:14)
[2016-08-06] MEDS: AMOXICILLIN/CLAVULANATE TAB 875 MG TAB PO SCH ×2 (08:32→17:50)
[2016-08-06] MEDS: EUCERIN CR 120 GM JAR EXT SCH ×2 (09:24→20:00)
--- NOTE | 2016-08-06 13:48 | Progress Note ---
Internal Med Progress Note Date of Service: Aug 06, 2016. Provider Documentation: SUBJECTIVE: The patient was seen and examined Minimally verbal Not in any distress No acute events since admission Clinically improved a lot Discussed with the Brother from [place] -willing to anything to make his brother better Remains stable OBJECTIVE: Vital Signs-as noted below Exam: General-no acute symptoms OOB in a chair Eyes-normal ENT-normal Neck-supple Lungs-Decreased breath sound bilaterally Heart-Regular,no murmur appreciated Abdomen-Benign,no masses,bowel sound present Extremities-Abrasion and excoriation and infection involving left groin and lateral to the gluteal folds No active drainage Chronic edema bilaterally with chronic skin changes Dirty wartlike lesions cover almost all of the lower legs Chronic Cutaneous Mycosis,superficial ulcerations Wounds are better in general Overall improvement of the condition Neuro-AA Has Down syndrome Lab data as noted below. ASSESSMENT & PLAN: Severe sepsis. Suspected Aspiration pneumonia verses CAP Transferred from [facility] with Hypotension ,tachycardia and increased WCC Reported to have Pneumonia ,may have UTI and or skin and soft tissue infection Blood cultures-negative,MRSA screen -negative ,Urine Culture-negative Was on IV Zosyn and Vancomycin Lactic acid improved ,BP stable WCC increased initially and now decreasing and normalized Discontinue Vancomycin Has been on Zosyn-will changed to Unasyn and transition to Augmentin WCC improved ,No Fever,chills Wounds are much improved Unasyn changed to Augmentin from 08/05 and will need to continue for a total of 14 days Wound clinic follow up Daily dressing as advised by the wound care provider SURAJ and Increased Uric Acid and Hypernatremia Likely secondary to Dehydration and sepsis Receiving adequet IVF with .45 saline Minimal increase in Troponin is likely due to SRUAJ Monitor PRP Renal function improved ,so is Uric acid Chloride remains high-will try D5 W infusion Sodium and Renal function are improved and normalized No acute issue Electrolytes Imbalance Will supplement and monitor Corrected Poor Hygiene. He has skin excoriations in groin and back And likely skin mycosis in legs Consult wound care and follow the recommendations. Social Service for possible placement May need ID if not any better Legs and the groin wounds are much improved Will need care in a senior living and maintain good hygiene to prevent further infection Abnormal LFT US negative for any Cholecystitis Has Steatosis Will monitor-improved Increased CPK No known Injury and or fall Prediabetes. We will check HbA1c levels.-5.4 [address] him on insulin sliding scale. Hyperlipidemia will hold statin for now. Follow lipid profile. 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 ON fluids . Monitor for volume overload.We will follow the repeat echo. Deep venous thrombosis prophylaxis heparin subQ. Level 1 full code. As per my discussion with his stepfather. Disposition Transfer to [facility] [place] when accepted Discussed with the Brother Vital Signs: Date Time Temp Pulse Resp B/P (MAP) Pulse Ox O2 Delivery O2 Flow Rate FiO2 08/06/16 07:35 36.6 64 18 108/71 (83) 96 Room Air 08/06/16 07:23 Room Air 08/06/16 00:10 37.1 60 18 86/52 (63) 92 Room Air 08/06/16 00:00 Room Air 08/05/16 16:00 94 Room Air 08/05/16 15:41 36.4 77 16 108/68 (81) 95 Room Air Lab Results: Results Past 24 Hours Test 08/05/16 16:42 08/05/16 20:28 08/06/16 07:56 08/06/16 11:33 Range/Units Bedside Glucose 99 103 81 102 70-99 mg/dl
[2016-08-06 15:47] VITALS: BP 112/72; PULSE 80; TEMP 37; O2SAT 97
[2016-08-06 16:00] VITALS: O2SAT 94
[2016-08-06] MEDS: AMMONIUM LACTATE 12% LOTION 225 GM BTL EXT PRN (20:15)
[2016-08-06 23:45] VITALS: BP 116/70; PULSE 64; TEMP 36.4; O2SAT 96
[2016-08-07] MEDS: HEPARIN SOD 5000 UNIT/0.5 ML CARP SQ SCH ×3 (06:15→22:03)
[2016-08-07] MEDS: MENTHOL-ZINC OXIDE 360 APPLN/120 GM TUBE EXT SCH ×3 (06:16→21:52)
[2016-08-07] MEDS: INSULIN ASPART 100 UNITS/ML 3 ML PEN SC SCH ×4 (06:30→21:39)
[2016-08-07 07:24] LABS: HEMATOCRIT 40.6 % (42-52); MEAN CELL VOLUME 96.4 fL (80-100); MEAN CORPUSCULAR HEMOGLOBIN 31.4 pg (25-34); MEAN CORPUSCULAR HGB CONC 32.5 g/dl (32-36); MEAN PLATELET VOLUME 11.1 fL (7.4-10.4); PLATELET COUNT 372 K/uL (130-400); RED BLOOD COUNT 4.21 M/uL (4.7-6.1); WHITE BLOOD COUNT 8.93 K/uL (4.8-10.8)
[2016-08-07 08:02] VITALS: BP 113/60; PULSE 59; TEMP 36.8; O2SAT 99
[2016-08-07 08:02] LABS: BUN/CREATININE RATIO 12.2 (10-20); CREATININE 0.91 mg/dl (0.60-1.40); MAGNESIUM 2.6 mg/dl (1.8-2.4); PHOSPHORUS 3.2 mg/dl (2.5-4.9); POTASSIUM 3.7 mmol/L (3.5-5.1)
[2016-08-07 08:04] LABS: CALCIUM 8.4 mg/dl (8.5-10.1)
[2016-08-07] MEDS: EUCERIN CR 120 GM JAR EXT SCH ×2 (08:38→19:14)
[2016-08-07] MEDS: AMOXICILLIN/CLAVULANATE TAB 875 MG TAB PO SCH ×2 (08:38→17:23)
[2016-08-07] MEDS: BOOST VANILLA PO SCH ×4 (08:43→20:27)
[2016-08-07 14:56] VITALS: BP 105/56; PULSE 69; TEMP 36.8; O2SAT 97
[2016-08-07] MEDS ORDERED: NURSING VERBAL MED ORDER ONE (15:00)
[2016-08-07 16:00] VITALS: O2SAT 97
--- NOTE | 2016-08-07 16:29 | Progress Note ---
Subjective Date of Service: Aug 07, 2016. Subjective Pt evaluation today including: conversation w/ patient, physical exam, lab review, review of studies, review of inpatient medication list Saw/examined the patient in room 453 He's doing okay; no distress Review of Systems underlying Down's - cannot obtain ROS Medications Current Inpatient Medications Medications (Trade) Dose Ordered Sig/Saurabh Route Start Time Stop Time Status Last Admin Dose Admin Heparin Sodium (Porcine) (Heparin Sq 5000 Unit/0.5ml) 5,000 unit Q8 SQ 07/30/16 22:00 08/29/16 21:59 08/07/16 13:37 5,000 UNIT Acetaminophen (Tylenol Tab) 650 mg Q4H PRN PO 07/30/16 17:15 08/29/16 17:14 08/05/16 19:08 650 MG Ondansetron HCl (Zofran Inj) 4 mg Q6H PRN IV 07/30/16 17:15 08/29/16 17:14 Nitroglycerin (Nitrostat Tab) 0.4 mg UD PRN SL 07/30/16 17:15 08/29/16 17:14 Polyethylene (Miralax Powder Packet) 17 gm DAILY PRN PO 07/30/16 17:15 08/29/16 17:14 Insulin Aspart (novoLOG ASPART) SLIDING SCALE G... ACHS SC 07/30/16 21:00 08/29/16 20:59 Multi-Ingredient Ointment (Eucerin Unscented Cr) 1 appln BID EXT 07/31/16 09:00 08/30/16 08:59 08/07/16 08:38 1 APPLN Ammonium Lactate (Lac-Hydrin) 1 appl BID PRN EXT 08/02/16 14:45 09/01/16 14:44 08/06/16 20:15 1 APPL Menthol/Zinc Oxide (Calmoseptine Oint) 1 appln Q8H EXT 08/02/16 14:45 09/01/16 14:44 08/07/16 13:36 1 APPLN Menthol/Zinc Oxide (Calmoseptine Oint) 1 appln Q8H PRN EXT 08/02/16 14:45 09/01/16 14:44 Amoxicillin/ Clavulanate Potassium (Augmentin Tab) 875 mg BIDM PO 08/05/16 14:15 08/15/16 14:14 08/07/16 08:38 875 MG Enteral Nutritional Formula (Boost) 1 can BID PO 08/05/16 20:00 09/04/16 19:59 08/07/16 08:43 1 CAN Collagenase (Santyl Oint) 1 appln DAILY EXT 08/08/16 08:00 09/07/16 07:59 Objective Vital Signs Date Time Temp Pulse Resp B/P (MAP) Pulse Ox O2 Delivery O2 Flow Rate FiO2 08/07/16 14:56 36.8 69 18 105/56 (72) 97 08/07/16 08:02 36.8 59 16 113/60 (77) 99 Room Air 08/07/16 07:40 Room Air 08/07/16 00:00 Room Air 08/06/16 23:45 36.4 64 18 116/70 (85) 96 Room Air Physical Exam General Appearance: no apparent distress Respiratory/Chest: lungs clear, normal breath sounds, no respiratory distress, no accessory muscle use Cardiovascular: regular rate, rhythm, no edema, no murmur Extremities: + pertinent finding (gluteal fold excoriations - pictures noted) Laboratory Results Last 24 Hours Test 08/06/16 16:57 08/06/16 20:40 08/07/16 06:55 08/07/16 07:46 Bedside Glucose 83 mg/dl 100 mg/dl 90 mg/dl White Blood Count 8.93 K/uL Red Blood Count 4.21 M/uL Hemoglobin 13.2 g/dL Hematocrit 40.6 % Mean Corpuscular Volume 96.4 fL Mean Corpuscular Hemoglobin 31.4 pg Mean Corpuscular Hemoglobin Concent 32.5 g/dl RDW Standard Deviation 50.5 fL RDW Coefficient of Variation 14.7 % Platelet Count 372 K/uL Mean Platelet Volume 11.1 fL Sodium Level 143 mmol/L Potassium Level 3.7 mmol/L Chloride Level 107 mmol/L Carbon Dioxide Level 28 mmol/L Anion Gap 8.0 mmol/L Blood Urea Nitrogen 11 mg/dl Creatinine 0.91 mg/dl Est Creatinine Clear Calc Drug Dose 102.2 ml/min Estimated GFR () 112.7 Estimated GFR (Non- 97.2 BUN/Creatinine Ratio 12.2 Random Glucose 92 mg/dl Calcium Level 8.4 mg/dl Phosphorus Level 3.2 mg/dl Magnesium Level 2.6 mg/dl Test 08/07/16 11:41 Bedside Glucose 102 mg/dl Assessment and Plan Severe sepsis 08/07 doing well; WBC normalized afebrile, blood pressure stable PNA vs. wound infection initially on Zosyn and Vancomycin, switched to Unasyn and then Augmentin to continue Augmentin for a total of 14 days daily dressing changes as per wound care SURAJ resolved, no need for further IVFs Plan for discharge to SNF when approved by insurance - discharge planning eval Suspected Aspiration pneumonia verses CAP Transferred from [facility] ER with Hypotension ,tachycardia and increased WCC Reported to have Pneumonia ,may have UTI and or skin and soft tissue infection Blood cultures-negative,MRSA screen -negative ,Urine Culture-negative Was on IV Zosyn and Vancomycin Lactic acid improved ,BP stable WCC increased initially and now decreasing and normalized Discontinue Vancomycin Has been on Zosyn-will changed to Unasyn and transition to Augmentin WCC improved ,No Fever,chills Wounds are much improved Unasyn changed to Augmentin from 08/05 and will need to continue for a total of 14 days Wound clinic follow up Daily dressing as advised by the wound care provider SURAJ and Increased Uric Acid and Hypernatremia Likely secondary to Dehydration and sepsis Receiving adequet IVF with .45 saline Minimal increase in Troponin is likely due to SURAJ Monitor PRP Renal function improved ,so is Uric acid Chloride remains high-will try D5 W infusion Sodium and Renal function are improved and normalized No acute issue Electrolytes Imbalance - resolved Will supplement and monitor Corrected Poor Hygiene. He has skin excoriations in groin and back And likely skin mycosis in legs Consult wound care and follow the recommendations. Social Service for possible placement May need ID if not any better Legs and the groin wounds are much improved Will need care in a fpc and maintain good hygiene to prevent further infection Abnormal LFT US negative for any Cholecystitis Has Steatosis Will monitor-improved Increased CPK No known Injury and or fall Prediabetes. We will check HbA1c levels.-5.[address] him on insulin sliding scale. Hyperlipidemia will hold statin for now. Follow lipid profile. 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 ON fluids . Monitor for volume overload.We will follow the repeat echo. Deep venous thrombosis prophylaxis heparin subQ. Level 1 full code. As per my discussion with his stepfather. Disposition Transfer to [facility] [place] when accepted Discussed with the Brother
[2016-08-07 23:22] VITALS: BP 100/64; PULSE 66; TEMP 36.9; O2SAT 95
[2016-08-08 01:19] VITALS: O2SAT 97
[2016-08-08] MEDS: HEPARIN SOD 5000 UNIT/0.5 ML CARP SQ SCH ×3 (06:19→22:19)
[2016-08-08] MEDS: MENTHOL-ZINC OXIDE 360 APPLN/120 GM TUBE EXT SCH ×3 (06:20→22:20)
[2016-08-08] MEDS: INSULIN ASPART 100 UNITS/ML 3 ML PEN SC SCH ×4 (06:30→22:00)
[2016-08-08 07:11] VITALS: BP 107/65; PULSE 54; TEMP 36.5; O2SAT 98
[2016-08-08 07:30] LABS: HEMATOCRIT 40.1 % (42-52); MEAN CELL VOLUME 97.1 fL (80-100); MEAN CORPUSCULAR HEMOGLOBIN 31.2 pg (25-34); MEAN CORPUSCULAR HGB CONC 32.2 g/dl (32-36); MEAN PLATELET VOLUME 10.4 fL (7.4-10.4); PLATELET COUNT 371 K/uL (130-400); RED BLOOD COUNT 4.13 M/uL (4.7-6.1); WHITE BLOOD COUNT 7.65 K/uL (4.8-10.8)
[2016-08-08] MEDS: EUCERIN CR 120 GM JAR EXT SCH ×2 (07:35→19:33)
[2016-08-08] MEDS: COLLAGENASE OINT 30 GM TUBE EXT SCH (07:36)
[2016-08-08] MEDS: AMOXICILLIN/CLAVULANATE TAB 875 MG TAB PO SCH ×2 (07:36→18:06)
[2016-08-08] MEDS: BOOST VANILLA PO SCH ×4 (07:37→19:44)
[2016-08-08 08:02] LABS: BUN/CREATININE RATIO 12.6 (10-20); CALCIUM 8.2 mg/dl (8.5-10.1); CREATININE 0.99 mg/dl (0.60-1.40); POTASSIUM 3.9 mmol/L (3.5-5.1)
[2016-08-08 15:57] VITALS: BP 104/69; PULSE 66; TEMP 36.6; O2SAT 98
[2016-08-08 16:00] VITALS: O2SAT 97
--- NOTE | 2016-08-08 17:11 | Progress Note ---
Subjective Date of Service: Aug 08, 2016. Subjective Pt evaluation today including: conversation w/ patient, physical exam, lab review, review of studies, review of inpatient medication list Saw/examined the patient in room 453 Seated in a chair Non-verbal No distress No issues to note Medications Current Inpatient Medications Medications (Trade) Dose Ordered Sig/Saurabh Route Start Time Stop Time Status Last Admin Dose Admin Heparin Sodium (Porcine) (Heparin Sq 5000 Unit/0.5ml) 5,000 unit Q8 SQ 07/30/16 22:00 08/29/16 21:59 08/08/16 13:45 5,000 UNIT Acetaminophen (Tylenol Tab) 650 mg Q4H PRN PO 07/30/16 17:15 08/29/16 17:14 08/05/16 19:08 650 MG Ondansetron HCl (Zofran Inj) 4 mg Q6H PRN IV 07/30/16 17:15 08/29/16 17:14 Nitroglycerin (Nitrostat Tab) 0.4 mg UD PRN SL 07/30/16 17:15 08/29/16 17:14 Polyethylene (Miralax Powder Packet) 17 gm DAILY PRN PO 07/30/16 17:15 08/29/16 17:14 Insulin Aspart (novoLOG ASPART) SLIDING SCALE G... ACHS SC 07/30/16 21:00 08/29/16 20:59 Multi-Ingredient Ointment (Eucerin Unscented Cr) 1 appln BID EXT 07/31/16 09:00 08/30/16 08:59 08/08/16 07:35 1 APPLN Ammonium Lactate (Lac-Hydrin) 1 appl BID PRN EXT 08/02/16 14:45 09/01/16 14:44 08/06/16 20:15 1 APPL Menthol/Zinc Oxide (Calmoseptine Oint) 1 appln Q8H EXT 08/02/16 14:45 09/01/16 14:44 08/08/16 13:45 1 APPLN Menthol/Zinc Oxide (Calmoseptine Oint) 1 appln Q8H PRN EXT 08/02/16 14:45 09/01/16 14:44 Amoxicillin/ Clavulanate Potassium (Augmentin Tab) 875 mg BIDM PO 08/05/16 14:15 08/15/16 14:14 08/08/16 07:36 875 MG Enteral Nutritional Formula (Boost) 1 can BID PO 08/05/16 20:00 09/04/16 19:59 08/08/16 07:37 1 CAN Collagenase (Santyl Oint) 1 appln DAILY EXT 08/08/16 08:00 09/07/16 07:59 08/08/16 07:36 1 APPLN Objective Vital Signs Date Time Temp Pulse Resp B/P (MAP) Pulse Ox O2 Delivery O2 Flow Rate FiO2 08/08/16 15:57 36.6 66 18 104/69 (81) 98 Room Air 08/08/16 08:00 Room Air 08/08/16 07:11 36.5 54 16 107/65 (79) 98 Room Air 08/08/16 01:19 97 Room Air 08/07/16 23:22 36.9 66 18 100/64 (76) 95 Room Air Physical Exam General Appearance: no apparent distress Respiratory/Chest: no respiratory distress, no accessory muscle use Cardiovascular: regular rate, rhythm, no murmur Laboratory Results Last 24 Hours Test 08/07/16 20:33 08/08/16 07:07 08/08/16 07:48 08/08/16 11:44 Bedside Glucose 101 mg/dl 81 mg/dl 86 mg/dl White Blood Count 7.65 K/uL Red Blood Count 4.13 M/uL Hemoglobin 12.9 g/dL Hematocrit 40.1 % Mean Corpuscular Volume 97.1 fL Mean Corpuscular Hemoglobin 31.2 pg Mean Corpuscular Hemoglobin Concent 32.2 g/dl RDW Standard Deviation 51.6 fL RDW Coefficient of Variation 15.0 % Platelet Count 371 K/uL Mean Platelet Volume 10.4 fL Sodium Level 143 mmol/L Potassium Level 3.9 mmol/L Chloride Level 109 mmol/L Carbon Dioxide Level 29 mmol/L Anion Gap 5.0 mmol/L Blood Urea Nitrogen 12 mg/dl Creatinine 0.99 mg/dl Est Creatinine Clear Calc Drug Dose 93.9 ml/min Estimated GFR () 101.8 Estimated GFR (Non- 87.8 BUN/Creatinine Ratio 12.6 Random Glucose 91 mg/dl Calcium Level 8.2 mg/dl Assessment and Plan Severe sepsis - resolved 08/08 Plan is to d/c to facility when available continue Augmentin for a total of 14 days 08/07 doing well; WBC normalized afebrile, blood pressure stable PNA vs. wound infection initially on Zosyn and Vancomycin, switched to Unasyn and then Augmentin to continue Augmentin for a total of 14 days daily dressing changes as per wound care SURAJ resolved, no need for further IVFs Plan for discharge to SNF when approved by insurance - discharge planning eval Suspected Aspiration pneumonia verses CAP Transferred from [facility] with Hypotension ,tachycardia and increased WCC Reported to have Pneumonia ,may have UTI and or skin and soft tissue infection Blood cultures-negative,MRSA screen -negative ,Urine Culture-negative Was on IV Zosyn and Vancomycin Lactic acid improved ,BP stable WCC increased initially and now decreasing and normalized Discontinue Vancomycin Has been on Zosyn-will changed to Unasyn and transition to Augmentin WCC improved ,No Fever,chills Wounds are much improved Unasyn changed to Augmentin from 08/05 and will need to continue for a total of 14 days Wound clinic follow up Daily dressing as advised by the wound care provider SURAJ and Increased Uric Acid and Hypernatremia - resolved Likely secondary to Dehydration and sepsis Receiving adequet IVF with .45 saline Minimal increase in Troponin is likely due to SURAJ Monitor PRP Renal function improved ,so is Uric acid Chloride remains high-will try D5 W infusion Sodium and Renal function are improved and normalized No acute issue Electrolytes Imbalance - resolved Will supplement and monitor Corrected Poor Hygiene. He has skin excoriations in groin and back And likely skin mycosis in legs Consult wound care and follow the recommendations. Social Service for possible placement May need ID if not any better Legs and the groin wounds are much improved Will need care in a prison and maintain good hygiene to prevent further infection Abnormal LFT US negative for any Cholecystitis Has Steatosis Will monitor-improved Increased CPK No known Injury and or fall Prediabetes. We will check HbA1c levels.-5.[address] him on insulin sliding scale. Hyperlipidemia will hold statin for now. Follow lipid profile. 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 ON fluids . Monitor for volume overload.We will follow the repeat echo. Deep venous thrombosis prophylaxis heparin subQ. Level 1 full code. As per my discussion with his stepfather. Dis[place] [facility] [place] Discussed with the Brother
[2016-08-09 00:04] VITALS: BP 114/72; PULSE 72; TEMP 36.9; O2SAT 95
[2016-08-09] MEDS: HEPARIN SOD 5000 UNIT/0.5 ML CARP SQ SCH ×3 (05:54→20:44)
[2016-08-09] MEDS: MENTHOL-ZINC OXIDE 360 APPLN/120 GM TUBE EXT SCH ×3 (05:55→20:40)
[2016-08-09] MEDS: INSULIN ASPART 100 UNITS/ML 3 ML PEN SC SCH ×4 (06:30→20:40)
[2016-08-09] MEDS: COLLAGENASE OINT 30 GM TUBE EXT SCH (07:27)
[2016-08-09] MEDS: AMOXICILLIN/CLAVULANATE TAB 875 MG TAB PO SCH ×2 (07:27→16:34)
[2016-08-09] MEDS: BOOST VANILLA PO SCH ×4 (07:28→20:38)
[2016-08-09] MEDS: EUCERIN CR 120 GM JAR EXT SCH ×2 (07:28→20:00)
[2016-08-09 07:42] VITALS: BP 103/55; PULSE 54; TEMP 36.8; O2SAT 95
[2016-08-09 07:48] LABS: HEMATOCRIT 38.9 % (42-52); MEAN CELL VOLUME 96.5 fL (80-100); MEAN CORPUSCULAR HGB CONC 33.2 g/dl (32-36); MEAN PLATELET VOLUME 10.8 fL (7.4-10.4); PLATELET COUNT 351 K/uL (130-400); RED BLOOD COUNT 4.03 M/uL (4.7-6.1); WHITE BLOOD COUNT 7.28 K/uL (4.8-10.8)
[2016-08-09 08:20] LABS: CREATININE 0.98 mg/dl (0.60-1.40); POTASSIUM 3.9 mmol/L (3.5-5.1)
--- NOTE | 2016-08-09 10:14 | Progress Note ---
Subjective Date of Service: Aug 09, 2016. Subjective Pt evaluation today including: conversation w/ patient, physical exam, lab review, review of studies, review of inpatient medication list Saw/examined the patient in room 453 laying comfortably no distress Review of Systems cannot obtain due to patient's mental status Medications Current Inpatient Medications Medications (Trade) Dose Ordered Sig/Saurabh Route Start Time Stop Time Status Last Admin Dose Admin Heparin Sodium (Porcine) (Heparin Sq 5000 Unit/0.5ml) 5,000 unit Q8 SQ 07/30/16 22:00 08/29/16 21:59 08/09/16 05:54 5,000 UNIT Acetaminophen (Tylenol Tab) 650 mg Q4H PRN PO 07/30/16 17:15 08/29/16 17:14 08/05/16 19:08 650 MG Ondansetron HCl (Zofran Inj) 4 mg Q6H PRN IV 07/30/16 17:15 08/29/16 17:14 Nitroglycerin (Nitrostat Tab) 0.4 mg UD PRN SL 07/30/16 17:15 08/29/16 17:14 Polyethylene (Miralax Powder Packet) 17 gm DAILY PRN PO 07/30/16 17:15 08/29/16 17:14 Insulin Aspart (novoLOG ASPART) SLIDING SCALE G... ACHS SC 07/30/16 21:00 08/29/16 20:59 Multi-Ingredient Ointment (Eucerin Unscented Cr) 1 appln BID EXT 07/31/16 09:00 08/30/16 08:59 08/09/16 07:28 1 APPLN Ammonium Lactate (Lac-Hydrin) 1 appl BID PRN EXT 08/02/16 14:45 09/01/16 14:44 08/06/16 20:15 1 APPL Menthol/Zinc Oxide (Calmoseptine Oint) 1 appln Q8H EXT 08/02/16 14:45 09/01/16 14:44 08/09/16 05:55 1 APPLN Menthol/Zinc Oxide (Calmoseptine Oint) 1 appln Q8H PRN EXT 08/02/16 14:45 09/01/16 14:44 Amoxicillin/ Clavulanate Potassium (Augmentin Tab) 875 mg BIDM PO 08/05/16 14:15 08/15/16 14:14 08/09/16 07:27 875 MG Enteral Nutritional Formula (Boost) 1 can BID PO 08/05/16 20:00 09/04/16 19:59 08/09/16 07:28 1 CAN Collagenase (Santyl Oint) 1 appln DAILY EXT 08/08/16 08:00 09/07/16 07:59 08/09/16 07:27 1 APPLN Multivitamins/ Minerals (Multivitamin W/ Minerals Tab) 1 tab QAM PO 08/09/16 09:30 09/08/16 09:29 Objective Vital Signs Date Time Temp Pulse Resp B/P (MAP) Pulse Ox O2 Delivery O2 Flow Rate FiO2 08/09/16 08:00 Room Air 08/09/16 07:42 36.8 54 16 103/55 (71) 95 Room Air 08/09/16 00:04 36.9 72 17 114/72 (86) 95 Room Air 08/09/16 00:00 Room Air 08/08/16 16:00 97 Room Air 08/08/16 15:57 36.6 66 18 104/69 (81) 98 Room Air Physical Exam General Appearance: no apparent distress Respiratory/Chest: no respiratory distress, no accessory muscle use Skin: + pertinent finding (scaling on scalp) Laboratory Results Last 24 Hours Test 08/08/16 11:44 08/08/16 16:31 08/08/16 20:34 08/09/16 07:27 Bedside Glucose 86 mg/dl 99 mg/dl 88 mg/dl White Blood Count 7.28 K/uL Red Blood Count 4.03 M/uL Hemoglobin 12.9 g/dL Hematocrit 38.9 % Mean Corpuscular Volume 96.5 fL Mean Corpuscular Hemoglobin 32.0 pg Mean Corpuscular Hemoglobin Concent 33.2 g/dl RDW Standard Deviation 52.1 fL RDW Coefficient of Variation 14.9 % Platelet Count 351 K/uL Mean Platelet Volume 10.8 fL Sodium Level 143 mmol/L Potassium Level 3.9 mmol/L Chloride Level 107 mmol/L Carbon Dioxide Level 29 mmol/L Anion Gap 7.0 mmol/L Blood Urea Nitrogen 14 mg/dl Creatinine 0.98 mg/dl Est Creatinine Clear Calc Drug Dose 94.9 ml/min Estimated GFR () 103.0 Estimated GFR (Non- 88.9 BUN/Creatinine Ratio 14.0 Random Glucose 92 mg/dl Calcium Level 9.0 mg/dl Assessment and Plan Severe sepsis - resolved 08/09 secondary to wound vs. aspiration pneumonia either way, condition is improving continue Augmentin (#9/14) added multivitamin with minerals continue collagenase, Calmoseptine, Eucerin diet liberalized to a regular diet d/c pending to facility - CM aware 08/08 Plan is to d/c to facility when available continue Augmentin for a total of 14 days 08/07 doing well; WBC normalized afebrile, blood pressure stable PNA vs. wound infection initially on Zosyn and Vancomycin, switched to Unasyn and then Augmentin to continue Augmentin for a total of 14 days daily dressing changes as per wound care SURAJ resolved, no need for further IVFs Plan for discharge to SNF when approved by insurance - discharge planning eval Suspected Aspiration pneumonia verses CAP Transferred from [facility] ER with Hypotension ,tachycardia and increased WCC Reported to have Pneumonia ,may have UTI and or skin and soft tissue infection Blood cultures-negative,MRSA screen -negative ,Urine Culture-negative Was on IV Zosyn and Vancomycin Lactic acid improved ,BP stable WCC increased initially and now decreasing and normalized Discontinue Vancomycin Has been on Zosyn-will changed to Unasyn and transition to Augmentin WCC improved ,No Fever,chills Wounds are much improved Unasyn changed to Augmentin from 08/05 and will need to continue for a total of 14 days Wound clinic follow up Daily dressing as advised by the wound care provider SURAJ and Increased Uric Acid and Hypernatremia - resolved Likely secondary to Dehydration and sepsis Receiving adequet IVF with .45 saline Minimal increase in Troponin is likely due to SURAJ Monitor PRP Renal function improved ,so is Uric acid Chloride remains high-will try D5 W infusion Sodium and Renal function are improved and normalized No acute issue Electrolytes Imbalance - resolved Will supplement and monitor Corrected Poor Hygiene. He has skin excoriations in groin and back And likely skin mycosis in legs Consult wound care and follow the recommendations. Social Service for possible placement May need ID if not any better Legs and the groin wounds are much improved Will need care in a assisted and maintain good hygiene to prevent further infection Abnormal LFT US negative for any Cholecystitis Has Steatosis Will monitor-improved Increased CPK No known Injury and or fall Prediabetes. We will check HbA1c levels.-5.[address] him on insulin sliding scale. Hyperlipidemia will hold statin for now. Follow lipid profile. 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 ON fluids . Monitor for volume overload.We will follow the repeat echo. Deep venous thrombosis prophylaxis heparin subQ. Level 1 full code. As per my discussion with his stepfather. Disposition Transfer to [facility] [place] when accepted Discussed with the Brother
[2016-08-09] MEDS: CEROVITE ADV FORMULA TAB PO SCH (10:33)
[2016-08-09 15:51] VITALS: BP 112/74; PULSE 77; TEMP 36.5; O2SAT 94
[2016-08-10 00:22] VITALS: BP 99/58; PULSE 63; TEMP 36.8; O2SAT 95
[2016-08-10] MEDS: MENTHOL-ZINC OXIDE 360 APPLN/120 GM TUBE EXT SCH ×3 (05:53→21:46)
[2016-08-10] MEDS: HEPARIN SOD 5000 UNIT/0.5 ML CARP SQ SCH ×3 (05:56→21:42)
[2016-08-10] MEDS: INSULIN ASPART 100 UNITS/ML 3 ML PEN SC SCH ×2 (06:30→11:00)
[2016-08-10 06:43] VITALS: BP 104/67; PULSE 56; TEMP 36.7; O2SAT 97
[2016-08-10] MEDS: EUCERIN CR 120 GM JAR EXT SCH ×2 (07:29→19:39)
[2016-08-10] MEDS: BOOST VANILLA PO SCH ×4 (07:30→19:37)
[2016-08-10] MEDS: AMOXICILLIN/CLAVULANATE TAB 875 MG TAB PO SCH ×2 (07:30→16:36)
[2016-08-10] MEDS: COLLAGENASE OINT 30 GM TUBE EXT SCH (07:30)
[2016-08-10] MEDS: CEROVITE ADV FORMULA TAB PO SCH (07:30)
[2016-08-10] MEDS ORDERED: NURSING VERBAL MED ORDER ONE (13:00)
--- NOTE | 2016-08-10 13:45 | Progress Note ---
Internal Med Progress Note Date of Service: Aug 10, 2016. Provider Documentation: SUBJECTIVE: pt found sitting on chair , drawing no sign of distress or agitation does not communicate OBJECTIVE: Vital Signs-as noted below Exam: General-no sign of distress Eyes-sclera non icteric Lungs-CTA Heart-regular s1/s2 Abdomen-soft, non tender Extremities-chronic venous stasis changes in bilat lower ext Neuro-Down's syndrome, minimally verbal Lab data as noted below. ASSESSMENT & PLAN: Severe sepsis - resolved secondary to wound infection /aspiration pneumonia Clinically improved continue Augmentin (Day #10 /14) added multivitamin with minerals continue collagenase, Calmoseptine, Eucerin for local wound care in Groin and lower ext diet liberalized to a regular diet appreciate input form Wound care SURAJ and Increased Uric Acid and Hypernatremia - resolved Likely secondary to Dehydration and sepsis corrected Minimal increase in Troponin is likely due to SURAJ Monitor PRP Renal function improved ,so is Uric acid appreciate input form Nephrology Electrolytes Imbalance - resolved Will supplement and monitor Corrected Poor Hygiene. unable to take care of himself due to Down's syndrome /MR /non verbal was living at home with Mother and step father unable to care for pt pt presented with skin excoriations in groin and back And likely skin mycosis in legs wound care consulted and follow the recommendations. Social Service for possible placement/SNF Legs and the groin wounds are much improved Will need care in a long-term and maintain good hygiene to prevent further infection Level 1 full code. As per my discussion with his stepfather. DISPOSITION referral made to [facility] for SNF possible transfer on Friday08/12/16 Social service following for discharge planning Vital Signs: Date Time Temp Pulse Resp B/P (MAP) Pulse Ox O2 Delivery O2 Flow Rate FiO2 08/10/16 08:00 Room Air 08/10/16 06:43 36.7 56 18 104/67 (79) 97 Room Air 08/10/16 01:32 Room Air 08/10/16 00:22 36.8 63 18 99/58 (72) 95 Room Air 08/09/16 20:00 Room Air 08/09/16 16:00 Room Air 08/09/16 15:51 36.5 77 18 112/74 (87) 94 Room Air Lab Results: Results Past 24 Hours Test 08/09/16 16:43 08/09/16 20:09 08/10/16 07:07 08/10/16 11:18 Range/Units Bedside Glucose 108 136 91 108 70-99 mg/dl
[2016-08-10 14:55] VITALS: BP 108/73; PULSE 79; TEMP 36.6; O2SAT 96
[2016-08-10 23:47] VITALS: BP 104/65; PULSE 80; TEMP 36.6; O2SAT 96
[2016-08-11] MEDS: MENTHOL-ZINC OXIDE 360 APPLN/120 GM TUBE EXT SCH ×3 (05:52→21:26)
[2016-08-11] MEDS: HEPARIN SOD 5000 UNIT/0.5 ML CARP SQ SCH ×3 (05:53→21:32)
[2016-08-11 06:07] LABS: HEMATOCRIT 37.9 % (42-52); MEAN CELL VOLUME 95.7 fL (80-100); MEAN CORPUSCULAR HEMOGLOBIN 31.6 pg (25-34); MEAN PLATELET VOLUME 11.1 fL (7.4-10.4); PLATELET COUNT 310 K/uL (130-400); RED BLOOD COUNT 3.96 M/uL (4.7-6.1); WHITE BLOOD COUNT 6.97 K/uL (4.8-10.8)
[2016-08-11 06:56] VITALS: BP 149/78; PULSE 80; TEMP 36.6; O2SAT 96
[2016-08-11] MEDS: EUCERIN CR 120 GM JAR EXT SCH ×2 (09:26→19:41)
[2016-08-11] MEDS: COLLAGENASE OINT 30 GM TUBE EXT SCH (09:27)
[2016-08-11] MEDS: AMOXICILLIN/CLAVULANATE TAB 875 MG TAB PO SCH ×2 (09:28→16:57)
[2016-08-11] MEDS: CEROVITE ADV FORMULA TAB PO SCH (09:28)
[2016-08-11] MEDS: BOOST VANILLA PO SCH ×4 (09:29→19:40)
[2016-08-11 11:07] VITALS: BP 136/75; PULSE 77; TEMP 36.7; O2SAT 98
[2016-08-11] MEDS ORDERED: KETOROLAC TROMETHAMINE 30 MG/ML VIAL IV STA (11:37)
--- NOTE | 2016-08-11 11:47 | Progress Note ---
Subjective Date of Service: Aug 11, 2016. Subjective Pt evaluation today including: conversation w/ patient, physical exam, lab review, review of studies, review of inpatient medication list Saw/examined the patient in room 453 [facility] called on this patient - was found slumped in his chair; then found to be crossing his eyes and shaking; he has Down's syndrome, but has not exhibited this type of behavior during hospital visit. He is c/o R eye pain; and abdominal pain. At baseline, not much information can be obtained due to his cognitive disabilities. Vital signs stable; blood glucose 111. He is in bed currently; continues to have erratic movements of the head/body. As per nursing, he has been having regular bowel movements; he ate breakfast okay; no fevers. Medications Current Inpatient Medications Medications (Trade) Dose Ordered Sig/Saurabh Route Start Time Stop Time Status Last Admin Dose Admin Heparin Sodium (Porcine) (Heparin Sq 5000 Unit/0.5ml) 5,000 unit Q8 SQ 07/30/16 22:00 08/29/16 21:59 08/11/16 05:53 5,000 UNIT Acetaminophen (Tylenol Tab) 650 mg Q4H PRN PO 07/30/16 17:15 08/29/16 17:14 08/05/16 19:08 650 MG Ondansetron HCl (Zofran Inj) 4 mg Q6H PRN IV 07/30/16 17:15 08/29/16 17:14 Nitroglycerin (Nitrostat Tab) 0.4 mg UD PRN SL 07/30/16 17:15 08/29/16 17:14 Polyethylene (Miralax Powder Packet) 17 gm DAILY PRN PO 07/30/16 17:15 08/29/16 17:14 Multi-Ingredient Ointment (Eucerin Unscented Cr) 1 appln BID EXT 07/31/16 09:00 08/30/16 08:59 08/11/16 09:26 1 APPLN Ammonium Lactate (Lac-Hydrin) 1 appl BID PRN EXT 08/02/16 14:45 09/01/16 14:44 08/06/16 20:15 1 APPL Menthol/Zinc Oxide (Calmoseptine Oint) 1 appln Q8H EXT 08/02/16 14:45 09/01/16 14:44 08/11/16 05:52 1 APPLN Menthol/Zinc Oxide (Calmoseptine Oint) 1 appln Q8H PRN EXT 08/02/16 14:45 09/01/16 14:44 Amoxicillin/ Clavulanate Potassium (Augmentin Tab) 875 mg BIDM PO 08/05/16 14:15 08/15/16 14:14 08/11/16 09:28 875 MG Enteral Nutritional Formula (Boost) 1 can BID PO 08/05/16 20:00 09/04/16 19:59 08/11/16 09:29 1 CAN Collagenase (Santyl Oint) 1 appln DAILY EXT 08/08/16 08:00 09/07/16 07:59 08/11/16 09:27 1 APPLN Multivitamins/ Minerals (Multivitamin W/ Minerals Tab) 1 tab QAM PO 08/09/16 09:30 09/08/16 09:29 08/11/16 09:28 1 TAB Objective Vital Signs Date Time Temp Pulse Resp B/P (MAP) Pulse Ox O2 Delivery O2 Flow Rate FiO2 08/11/16 11:07 36.7 77 18 136/75 (95) 98 Room Air 08/11/16 08:10 Room Air 08/11/16 06:56 36.6 80 20 149/78 (101) 96 Room Air 08/10/16 23:47 36.6 80 20 104/65 (78) 96 Room Air 08/10/16 23:35 Room Air 08/10/16 16:00 Room Air 08/10/16 14:55 36.6 79 20 108/73 (85) 96 Physical Exam General Appearance: + pertinent finding (Down's syndrome; Body shaking; crossing eyes, occasionally slumps over, but is always awake/alert) Respiratory/Chest: chest non-tender, lungs clear, normal breath sounds, no respiratory distress, no accessory muscle use Cardiovascular: regular rate, rhythm, no edema, no murmur Abdomen: normal bowel sounds, non tender, + tenderness Laboratory Results Last 24 Hours Test 08/11/16 05:40 08/11/16 11:14 White Blood Count 6.97 K/uL Red Blood Count 3.96 M/uL Hemoglobin 12.5 g/dL Hematocrit 37.9 % Mean Corpuscular Volume 95.7 fL Mean Corpuscular Hemoglobin 31.6 pg Mean Corpuscular Hemoglobin Concent 33.0 g/dl RDW Standard Deviation 51.2 fL RDW Coefficient of Variation 14.8 % Platelet Count 310 K/uL Mean Platelet Volume 11.1 fL Bedside Glucose 111 mg/dl Assessment and Plan Severe sepsis - resolved 08/11 continue Augmentin for now obtain head CT to r/o CVA - code purple called earlier today due to slumping over, and unusual body shaking - possibly behavioral issues related to Down's syndrome? collagenase, Calmoseptine, Eucerin cont. multivitamin 08/09 secondary to wound vs. aspiration pneumonia either way, condition is improving continue Augmentin (#9/14) added multivitamin with minerals continue collagenase, Calmoseptine, Eucerin diet liberalized to a regular diet d/c pending to facility - CM aware 08/08 Plan is to d/c to facility when available continue Augmentin for a total of 14 days 08/07 doing well; WBC normalized afebrile, blood pressure stable PNA vs. wound infection initially on Zosyn and Vancomycin, switched to Unasyn and then Augmentin to continue Augmentin for a total of 14 days daily dressing changes as per wound care SURAJ resolved, no need for further IVFs Plan for discharge to SNF when approved by insurance - discharge planning eval Suspected Aspiration pneumonia verses CAP Transferred from LTAC, [facility] with Hypotension ,tachycardia and increased WCC Reported to have Pneumonia ,may have UTI and or skin and soft tissue infection Blood cultures-negative,MRSA screen -negative ,Urine Culture-negative Was on IV Zosyn and Vancomycin Lactic acid improved ,BP stable WCC increased initially and now decreasing and normalized Discontinue Vancomycin Has been on Zosyn-will changed to Unasyn and transition to Augmentin WCC improved ,No Fever,chills Wounds are much improved Unasyn changed to Augmentin from 08/05 and will need to continue for a total of 14 days Wound clinic follow up Daily dressing as advised by the wound care provider SURAJ and Increased Uric Acid and Hypernatremia - resolved Likely secondary to Dehydration and sepsis Receiving adequet IVF with .45 saline Minimal increase in Troponin is likely due to SURAJ Monitor PRP Renal function improved ,so is Uric acid Chloride remains high-will try D5 W infusion Sodium and Renal function are improved and normalized No acute issue Electrolytes Imbalance - resolved Will supplement and monitor Corrected Poor Hygiene. He has skin excoriations in groin and back And likely skin mycosis in legs Consult wound care and follow the recommendations. Social Service for possible placement May need ID if not any better Legs and the groin wounds are much improved Will need care in a retirement and maintain good hygiene to prevent further infection Abnormal LFT US negative for any Cholecystitis Has Steatosis Will monitor-improved Increased CPK No known Injury and or fall Prediabetes. We will check HbA1c levels.-5.[address] him on insulin sliding scale. Hyperlipidemia will hold statin for now. Follow lipid profile. 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 ON fluids . Monitor for volume overload.We will follow the repeat echo. Deep venous thrombosis prophylaxis heparin subQ. Level 1 full code. As per my discussion with his stepfather. Disposition Transfer to [facility] when accepted Discussed with the Brother
--- NOTE | 2016-08-11 12:17 | DIAGNOSTIC IMAGING REPORT ---
HEAD CT NONCONTRAST CT DOSE: 537.48 mGy.cm HISTORY: Mental status change mental status change TECHNIQUE: Multiaxial CT images of the head were performed without the use of intravenous contrast. Comparison: None. Findings: The paranasal sinuses and mastoid air cells are clear. The calvarium and skull base are intact. The ventricles and sulci are within normal limits. There is no mass, hematoma, midline shift, or acute infarct. Impression: No acute intracranial abnormality. Electronically signed by: Triston Huertas M.D. 08/11/2016 12:16 PM Dictated Date/Time: 08/11/2016 12:14 PM
[2016-08-11 14:38] VITALS: BP 148/84; PULSE 60; TEMP 36.7; O2SAT 95
[2016-08-11] MEDS: ACETAMINOPHEN 325 MG TAB PO PRN (18:49)
[2016-08-11] MEDS: KETOROLAC TROMETHAMINE 30 MG/ML VIAL IV PRN (19:48)
[2016-08-11 23:40] VITALS: BP 107/66; PULSE 59; TEMP 36.7; O2SAT 94
[2016-08-12] MEDS: MENTHOL-ZINC OXIDE 360 APPLN/120 GM TUBE EXT SCH ×3 (05:37→22:31)
[2016-08-12] MEDS: HEPARIN SOD 5000 UNIT/0.5 ML CARP SQ SCH ×3 (05:38→22:32)
[2016-08-12 07:30] VITALS: BP 102/64; PULSE 50; TEMP 36.6; O2SAT 96
[2016-08-12 07:58] LABS: HEMATOCRIT 39.8 % (42-52); MEAN CELL VOLUME 96.8 fL (80-100); MEAN CORPUSCULAR HEMOGLOBIN 32.1 pg (25-34); MEAN CORPUSCULAR HGB CONC 33.2 g/dl (32-36); MEAN PLATELET VOLUME 10.9 fL (7.4-10.4); PLATELET COUNT 253 K/uL (130-400); RED BLOOD COUNT 4.11 M/uL (4.7-6.1); WHITE BLOOD COUNT 6.01 K/uL (4.8-10.8)
[2016-08-12 08:15] LABS: BUN/CREATININE RATIO 13.6 (10-20); CALCIUM 8.9 mg/dl (8.5-10.1); CREATININE 1.1 mg/dl (0.60-1.40); POTASSIUM 4.3 mmol/L (3.5-5.1)
[2016-08-12] MEDS: AMOXICILLIN/CLAVULANATE TAB 875 MG TAB PO SCH ×2 (08:16→17:44)
[2016-08-12] MEDS: EUCERIN CR 120 GM JAR EXT SCH ×2 (08:16→20:16)
[2016-08-12] MEDS: CEROVITE ADV FORMULA TAB PO SCH (08:16)
[2016-08-12] MEDS: BOOST VANILLA PO SCH ×4 (08:17→20:18)
--- NOTE | 2016-08-12 10:24 | Progress Note ---
Subjective Date of Service: Aug 12, 2016. Subjective Pt evaluation today including: conversation w/ patient, physical exam, lab review, review of studies, review of inpatient medication list Saw/examined the patient in room 453 He's seated in bed; he states "better" when asked about eye pain No distress Review of Systems cannot obtain due to pts. mental status Medications Current Inpatient Medications Medications (Trade) Dose Ordered Sig/Saurabh Route Start Time Stop Time Status Last Admin Dose Admin Heparin Sodium (Porcine) (Heparin Sq 5000 Unit/0.5ml) 5,000 unit Q8 SQ 07/30/16 22:00 08/29/16 21:59 08/12/16 05:38 5,000 UNIT Acetaminophen (Tylenol Tab) 650 mg Q4H PRN PO 07/30/16 17:15 08/29/16 17:14 08/11/16 18:49 650 MG Ondansetron HCl (Zofran Inj) 4 mg Q6H PRN IV 07/30/16 17:15 08/29/16 17:14 Nitroglycerin (Nitrostat Tab) 0.4 mg UD PRN SL 07/30/16 17:15 08/29/16 17:14 Polyethylene (Miralax Powder Packet) 17 gm DAILY PRN PO 07/30/16 17:15 08/29/16 17:14 Multi-Ingredient Ointment (Eucerin Unscented Cr) 1 appln BID EXT 07/31/16 09:00 08/30/16 08:59 08/12/16 08:16 1 APPLN Ammonium Lactate (Lac-Hydrin) 1 appl BID PRN EXT 08/02/16 14:45 09/01/16 14:44 08/06/16 20:15 1 APPL Menthol/Zinc Oxide (Calmoseptine Oint) 1 appln Q8H EXT 08/02/16 14:45 09/01/16 14:44 08/12/16 05:37 1 APPLN Menthol/Zinc Oxide (Calmoseptine Oint) 1 appln Q8H PRN EXT 08/02/16 14:45 09/01/16 14:44 Amoxicillin/ Clavulanate Potassium (Augmentin Tab) 875 mg BIDM PO 08/05/16 14:15 08/15/16 14:14 08/12/16 08:16 875 MG Enteral Nutritional Formula (Boost) 1 can BID PO 08/05/16 20:00 09/04/16 19:59 08/12/16 08:17 1 CAN Collagenase (Santyl Oint) 1 appln DAILY EXT 08/08/16 08:00 09/07/16 07:59 08/11/16 09:27 1 APPLN Multivitamins/ Minerals (Multivitamin W/ Minerals Tab) 1 tab QAM PO 08/09/16 09:30 09/08/16 09:29 08/12/16 08:16 1 TAB Ketorolac Tromethamine (Toradol Inj) 30 mg Q6H PRN IV 08/11/16 11:45 08/16/16 11:44 08/11/16 19:48 30 MG Objective Vital Signs Date Time Temp Pulse Resp B/P (MAP) Pulse Ox O2 Delivery O2 Flow Rate FiO2 08/12/16 07:30 36.6 50 18 102/64 (77) 96 Room Air 08/11/16 23:40 36.7 59 20 107/66 (80) 94 Room Air 08/11/16 23:25 Room Air 08/11/16 16:00 Room Air 08/11/16 14:38 36.7 60 20 148/84 (105) 95 08/11/16 11:07 36.7 77 18 136/75 (95) 98 Room Air Physical Exam General Appearance: no apparent distress, + pertinent finding (Down's syndrome) Respiratory/Chest: no respiratory distress, no accessory muscle use Cardiovascular: regular rate, rhythm Neurologic/Psychiatric: alert, normal mood/affect Laboratory Results Last 24 Hours Test 08/11/16 11:14 08/12/16 07:47 Bedside Glucose 111 mg/dl White Blood Count 6.01 K/uL Red Blood Count 4.11 M/uL Hemoglobin 13.2 g/dL Hematocrit 39.8 % Mean Corpuscular Volume 96.8 fL Mean Corpuscular Hemoglobin 32.1 pg Mean Corpuscular Hemoglobin Concent 33.2 g/dl RDW Standard Deviation 52.7 fL RDW Coefficient of Variation 15.0 % Platelet Count 253 K/uL Mean Platelet Volume 10.9 fL Sodium Level 142 mmol/L Potassium Level 4.3 mmol/L Chloride Level 107 mmol/L Carbon Dioxide Level 29 mmol/L Anion Gap 6.0 mmol/L Blood Urea Nitrogen 15 mg/dl Creatinine 1.10 mg/dl Est Creatinine Clear Calc Drug Dose 84.6 ml/min Estimated GFR () 89.6 Estimated GFR (Non- 77.3 BUN/Creatinine Ratio 13.6 Random Glucose 90 mg/dl Calcium Level 8.9 mg/dl Assessment and Plan Severe sepsis - resolved 08/12 will continue Augmentin for now Head CT yesterday was negative continue multivitamin with minerals, continue collagenase, Calmoseptine, Eucerin 08/11 continue Augmentin for now obtain head CT to r/o CVA - code purple called earlier today due to slumping over, and unusual body shaking - possibly behavioral issues related to Down's syndrome? collagenase, Calmoseptine, Eucerin cont. multivitamin 08/09 secondary to wound vs. aspiration pneumonia either way, condition is improving continue Augmentin (#9/) added multivitamin with minerals continue collagenase, Calmoseptine, Eucerin diet liberalized to a regular diet d/c pending to facility - CM aware 08/08 Plan is to d/c to facility when available continue Augmentin for a total of 14 days 08/07 doing well; WBC normalized afebrile, blood pressure stable PNA vs. wound infection initially on Zosyn and Vancomycin, switched to Unasyn and then Augmentin to continue Augmentin for a total of 14 days daily dressing changes as per wound care SURAJ resolved, no need for further IVFs Plan for discharge to SNF when approved by insurance - discharge planning eval Suspected Aspiration pneumonia verses CAP Transferred from [facility] ER with Hypotension ,tachycardia and increased WCC Reported to have Pneumonia ,may have UTI and or skin and soft tissue infection Blood cultures-negative,MRSA screen -negative ,Urine Culture-negative Was on IV Zosyn and Vancomycin Lactic acid improved ,BP stable WCC increased initially and now decreasing and normalized Discontinue Vancomycin Has been on Zosyn-will changed to Unasyn and transition to Augmentin WCC improved ,No Fever,chills Wounds are much improved Unasyn changed to Augmentin from 08/05 and will need to continue for a total of 14 days Wound clinic follow up Daily dressing as advised by the wound care provider SURAJ and Increased Uric Acid and Hypernatremia - resolved Likely secondary to Dehydration and sepsis Receiving adequet IVF with .45 saline Minimal increase in Troponin is likely due to SURAJ Monitor PRP Renal function improved ,so is Uric acid Chloride remains high-will try D5 W infusion Sodium and Renal function are improved and normalized No acute issue Electrolytes Imbalance - resolved Will supplement and monitor Corrected Poor Hygiene. He has skin excoriations in groin and back And likely skin mycosis in legs Consult wound care and follow the recommendations. Social Service for possible placement May need ID if not any better Legs and the groin wounds are much improved Will need care in a group home and maintain good hygiene to prevent further infection Abnormal LFT US negative for any Cholecystitis Has Steatosis Will monitor-improved Increased CPK No known Injury and or fall Prediabetes. We will check HbA1c levels.-5.[address] him on insulin sliding scale. Hyperlipidemia will hold statin for now. Follow lipid profile. 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 ON fluids . Monitor for volume overload.We will follow the repeat echo. Deep venous thrombosis prophylaxis heparin subQ. Level 1 full code. As per my discussion with his stepfather. Disposition Transfer to [facility] when accepted Discussed with the Brother
[2016-08-12] MEDS: AMMONIUM LACTATE 12% LOTION 225 GM BTL EXT PRN (11:07)
[2016-08-12] MEDS: COLLAGENASE OINT 30 GM TUBE EXT SCH (11:07)
[2016-08-12] MEDS: ACETAMINOPHEN 325 MG TAB PO PRN (13:11)
[2016-08-12 15:35] VITALS: BP 128/77; PULSE 67; TEMP 36.3; O2SAT 97
[2016-08-12] MEDS: KETOROLAC TROMETHAMINE 30 MG/ML VIAL IV PRN (16:27)
[2016-08-12 23:10] VITALS: BP 130/72; PULSE 57; TEMP 36.4; O2SAT 95
[2016-08-13] MEDS: MENTHOL-ZINC OXIDE 360 APPLN/120 GM TUBE EXT SCH ×3 (05:44→22:13)
[2016-08-13] MEDS: HEPARIN SOD 5000 UNIT/0.5 ML CARP SQ SCH ×3 (05:51→21:11)
[2016-08-13 08:00] VITALS: O2SAT 98
[2016-08-13 08:03] VITALS: BP 114/72; PULSE 51; TEMP 36.6; O2SAT 98
[2016-08-13] MEDS: AMOXICILLIN/CLAVULANATE TAB 875 MG TAB PO SCH ×2 (08:58→16:42)
[2016-08-13] MEDS: CEROVITE ADV FORMULA TAB PO SCH (09:10)
[2016-08-13] MEDS: BOOST VANILLA PO SCH ×4 (09:12→19:35)
[2016-08-13] MEDS: EUCERIN CR 120 GM JAR EXT SCH ×2 (09:13→19:45)
[2016-08-13] MEDS: COLLAGENASE OINT 30 GM TUBE EXT SCH (09:57)
[2016-08-13 15:28] VITALS: BP 132/80; PULSE 104; TEMP 36.7; O2SAT 96
[2016-08-13] MEDS: AMMONIUM LACTATE 12% LOTION 225 GM BTL EXT PRN (19:46)
--- NOTE | 2016-08-13 19:51 | Progress Note ---
Internal Med Progress Note Date of Service: Aug 13, 2016. Provider Documentation: SUBJECTIVE: pt found sitting on chair was agitated , pointing to the door -was scared tried to console pt he was acting up -nursing mentions earlier he was afraid of the exit sign /call bells curtain drawn -so pt can not see hallway can be easily distracted with toys one point -he will just stay still and slump over , after talking to him he responds immediately and engages in toys/things possible behavioral issues associated with Down's syndrome asked nursing for 1: 1 observation/sitter at side to prevent fall /self injury ( pt was trying to bang head on table ) OBJECTIVE: Vital Signs-as noted below Exam: General-anxious / HEENT -yellowish scab on head Lungs-CTA Heart-regular s1/s2 Abdomen-soft, non tender Extremities-chronic venous stasis changes in bilat lower ext Neuro-Down's syndrome, minimally verbal Lab data as noted below. ASSESSMENT & PLAN: Agitation /behavioral issues : due to down's syndrome continue to provide support 1: 1 to prevent fall /self harm no Sz activity noted , pt slumps over briefly repeatedly can be distracted easily from that behavior by engaging him to activity need to keep away things that causing him anxiety -loud noises /lights Severe sepsis - resolved secondary to wound infection /aspiration pneumonia Clinically improved continue Augmentin (Day #13 /14) added multivitamin with minerals continue collagenase, Calmoseptine, Eucerin for local wound care in Groin and lower ext diet liberalized to a regular diet appreciate input form Wound care SURAJ and Increased Uric Acid and Hypernatremia - resolved resolved Minimal increase in Troponin is likely due to SURAJ Renal function improved ,so is Uric acid appreciate input form Nephrology Electrolytes Imbalance - resolved Corrected Poor Hygiene. unable to take care of himself due to Down's syndrome /MR /non verbal was living at home with Mother and step father unable to care for pt pt presented with skin excoriations in groin and back And likely skin mycosis in legs wound care consulted and follow the recommendations. Social Service for possible placement/SNF Legs and the groin wounds are much improved Will need care in a custodial and maintain good hygiene to prevent further infection Level 1 full code. DISPOSITION waiting for placement /SNF Social service following for discharge planning Vital Signs: Date Time Temp Pulse Resp B/P (MAP) Pulse Ox O2 Delivery O2 Flow Rate FiO2 08/13/16 16:00 Room Air 08/13/16 15:28 36.7 104 20 132/80 (97) 96 Room Air 08/13/16 08:03 36.6 51 18 114/72 (86) 98 Room Air 08/13/16 08:00 98 Room Air 08/13/16 00:00 Room Air 08/12/16 23:10 36.4 57 18 130/72 (91) 95 Room Air 08/12/16 20:00 Room Air
[2016-08-13] MEDS: ACETAMINOPHEN 325 MG TAB PO PRN (21:30)
[2016-08-13 23:08] VITALS: BP 91/61; PULSE 65; TEMP 36.5; O2SAT 95
[2016-08-14] MEDS: HEPARIN SOD 5000 UNIT/0.5 ML CARP SQ SCH ×3 (05:30→21:47)
[2016-08-14] MEDS: MENTHOL-ZINC OXIDE 360 APPLN/120 GM TUBE EXT SCH ×3 (05:30→21:49)
[2016-08-14 07:02] VITALS: BP 99/58; PULSE 53; TEMP 36.4; O2SAT 98
[2016-08-14 08:00] VITALS: O2SAT 98
[2016-08-14] MEDS: CEROVITE ADV FORMULA TAB PO SCH (08:20)
[2016-08-14] MEDS: AMOXICILLIN/CLAVULANATE TAB 875 MG TAB PO SCH ×2 (08:20→16:54)
[2016-08-14] MEDS: BOOST VANILLA PO SCH ×4 (08:21→19:32)
[2016-08-14] MEDS: EUCERIN CR 120 GM JAR EXT SCH ×2 (13:56→19:33)
[2016-08-14] MEDS: COLLAGENASE OINT 30 GM TUBE EXT SCH (13:57)
[2016-08-14 15:35] VITALS: BP 137/72; PULSE 81; TEMP 36.7; O2SAT 95
--- NOTE | 2016-08-14 19:12 | Progress Note ---
Internal Med Progress Note Date of Service: Aug 14, 2016. Provider Documentation: SUBJECTIVE: much more calm and co operative today sitting in chairs has toys in front no behavioral issues noted OBJECTIVE: Vital Signs-as noted below Exam: General-pleasant HEENT -yellowish scab on head Lungs-CTA Heart-regular s1/s2 Abdomen-soft, non tender Extremities-chronic venous stasis changes in bilat lower ext Neuro-Down's syndrome, minimally verbal Lab data as noted below. ASSESSMENT & PLAN: Agitation /behavioral issues : due to Down's syndrome continue to provide support no Sz activity noted , pt slumps over briefly repeatedly can be distracted easily from that behavior by engaging him to activity need to keep away things that causing him anxiety -loud noises /lights Severe sepsis - resolved secondary to wound infection /aspiration pneumonia Clinically improved on Augmentin (Day #14 /) will be D/brooklynn after today's dose cont multivitamin with minerals continue collagenase, Calmoseptine, Eucerin for local wound care in Groin and lower ext diet liberalized to a regular diet appreciate input form Wound care SURAJ and Increased Uric Acid and Hypernatremia - resolved resolved Minimal increase in Troponin is likely due to SURAJ Renal function improved ,so is Uric acid appreciate input form Nephrology Electrolytes Imbalance - resolved Corrected Poor Hygiene. unable to take care of himself due to Down's syndrome /MR /non verbal was living at home with Mother and step father unable to care for pt pt presented with skin excoriations in groin and back And likely skin mycosis in legs wound care consulted and follow the recommendations. Social Service for possible placement/SNF Legs and the groin wounds are much improved Will need care in a residential and maintain good hygiene to prevent further infection Level 1 full code. DISPOSITION waiting for placement /SNF Social service following for discharge planning Vital Signs: Date Time Temp Pulse Resp B/P (MAP) Pulse Ox O2 Delivery O2 Flow Rate FiO2 08/14/16 16:00 Room Air 08/14/16 15:35 36.7 81 18 137/72 (93) 95 Room Air 08/14/16 08:00 98 Room Air 08/14/16 07:02 36.4 53 16 99/58 (72) 98 Room Air 08/14/16 00:00 Room Air 08/13/16 23:08 36.5 65 18 91/61 (71) 95 Room Air
[2016-08-14] MEDS: AMMONIUM LACTATE 12% LOTION 225 GM BTL EXT PRN (19:34)
[2016-08-14 23:59] VITALS: BP 131/75; PULSE 75; TEMP 36.7; O2SAT 92
[2016-08-15] MEDS: MENTHOL-ZINC OXIDE 360 APPLN/120 GM TUBE EXT SCH ×3 (05:51→21:41)
[2016-08-15] MEDS: HEPARIN SOD 5000 UNIT/0.5 ML CARP SQ SCH ×3 (05:51→21:40)
[2016-08-15 08:00] VITALS: BP 105/64; PULSE 60; TEMP 36.4; O2SAT 97
[2016-08-15] MEDS: AMOXICILLIN/CLAVULANATE TAB 875 MG TAB PO SCH (08:31)
[2016-08-15] MEDS: EUCERIN CR 120 GM JAR EXT SCH ×2 (08:32→19:37)
[2016-08-15] MEDS: CEROVITE ADV FORMULA TAB PO SCH (08:32)
[2016-08-15] MEDS: COLLAGENASE OINT 30 GM TUBE EXT SCH (08:33)
[2016-08-15] MEDS: BOOST VANILLA PO SCH ×4 (08:40→19:37)
[2016-08-15 15:22] VITALS: BP 128/73; PULSE 60; TEMP 36.5; O2SAT 94
--- NOTE | 2016-08-15 16:38 | Progress Note ---
Internal Med Progress Note Date of Service: Aug 15, 2016. Provider Documentation: SUBJECTIVE: no behavioral issues noted today drawing/coloring pictures with Crayons OBJECTIVE: Vital Signs-as noted below Exam: General-pleasant HEENT -yellowish scab on head Lungs-CTA Heart-regular s1/s2 Abdomen-soft, non tender Extremities-chronic venous stasis changes in bilat lower ext Neuro-Down's syndrome, minimally verbal Lab data as noted below. ASSESSMENT & PLAN: Agitation /behavioral issues : due to Down's syndrome continue to provide support no Sz activity noted , pt slumps over briefly repeatedly can be distracted easily from that behavior by engaging him to activity need to keep away things that causing him anxiety -loud noises /lights Severe sepsis - resolved secondary to wound infection /aspiration pneumonia completed Oral Augmentin (Day #14 ) cont multivitamin with minerals continue collagenase, Calmoseptine, Eucerin for local wound care in Groin and lower ext diet liberalized to a regular diet appreciate input form Wound care SURAJ and Increased Uric Acid and Hypernatremia - resolved resolved Minimal increase in Troponin is likely due to SURAJ Renal function improved ,so is Uric acid appreciate input form Nephrology Electrolytes Imbalance - resolved Corrected Poor Hygiene. unable to take care of himself due to Down's syndrome /MR /non verbal was living at home with Mother and step father unable to care for pt pt presented with skin excoriations in groin and back And likely skin mycosis in legs wound care consulted and follow the recommendations. Social Service for possible placement/SNF Legs and the groin wounds are much improved Will need care in a halfway and maintain good hygiene to prevent further infection Level 1 full code. DISPOSITION waiting for placement /SNF Social service following for discharge planning Vital Signs: Date Time Temp Pulse Resp B/P (MAP) Pulse Ox O2 Delivery O2 Flow Rate FiO2 08/15/16 16:00 Room Air 08/15/16 15:22 36.5 60 20 128/73 (91) 94 Room Air 08/15/16 08:00 36.4 60 16 105/64 (78) 97 Room Air 08/15/16 07:50 Room Air 08/15/16 00:00 Room Air 08/14/16 23:59 36.7 75 18 131/75 (93) 92 Room Air
[2016-08-15] MEDS: AMMONIUM LACTATE 12% LOTION 225 GM BTL EXT PRN (19:38)
[2016-08-16 00:09] VITALS: BP 114/71; PULSE 67; TEMP 36.7; O2SAT 95
[2016-08-16] MEDS: MENTHOL-ZINC OXIDE 360 APPLN/120 GM TUBE EXT SCH ×3 (05:38→21:52)
[2016-08-16] MEDS: HEPARIN SOD 5000 UNIT/0.5 ML CARP SQ SCH ×3 (05:41→21:51)
[2016-08-16 07:14] VITALS: BP 127/68; PULSE 79; TEMP 36.7; O2SAT 97
[2016-08-16] MEDS: COLLAGENASE OINT 30 GM TUBE EXT SCH (08:00)
[2016-08-16] MEDS: EUCERIN CR 120 GM JAR EXT SCH ×2 (08:00→20:55)
[2016-08-16] MEDS: CEROVITE ADV FORMULA TAB PO SCH (08:56)
[2016-08-16] MEDS: BOOST VANILLA PO SCH ×4 (08:58→20:55)
[2016-08-16 14:41] VITALS: BP 133/82; PULSE 66; TEMP 36.5; O2SAT 99
--- NOTE | 2016-08-16 20:44 | Progress Note ---
Internal Med Progress Note Date of Service: Aug 16, 2016. Provider Documentation: SUBJECTIVE: sitting on chair drawing/coloring pictures with Crayons OBJECTIVE: Vital Signs-as noted below Exam: General-pleasant HEENT -yellowish scab on head Lungs-CTA Heart-regular s1/s2 Abdomen-soft, non tender Extremities-chronic venous stasis changes in bilat lower ext Neuro-Down's syndrome, minimally verbal Lab data as noted below. ASSESSMENT & PLAN: Agitation /behavioral issues : due to Down's syndrome continue to provide support no Sz activity noted , pt slumps over briefly repeatedly can be distracted easily from that behavior by engaging him to activity /toys need to keep away things that causing him anxiety -loud noises /lights Severe sepsis - resolved secondary to wound infection /aspiration pneumonia completed Oral Augmentin (Day #14 ) cont multivitamin with minerals continue collagenase, Calmoseptine, Eucerin for local wound care in Groin and lower ext diet liberalized to a regular diet appreciate input form Wound care SURAJ and Increased Uric Acid and Hypernatremia - resolved resolved Minimal increase in Troponin is likely due to SURAJ Renal function improved ,so is Uric acid appreciate input form Nephrology Electrolytes Imbalance - resolved Corrected Poor Hygiene. unable to take care of himself due to Down's syndrome /MR /non verbal was living at home with Mother and step father unable to care for pt pt presented with skin excoriations in groin and back And likely skin mycosis in legs wound care consulted and follow the recommendations. Social Service for possible placement/SNF Legs and the groin wounds are much improved Will need [facility] and maintain good hygiene to prevent further infection Level 1 full code. DISPOSITION waiting for placement /SNF Social service following for discharge planning Vital Signs: Date Time Temp Pulse Resp B/P (MAP) Pulse Ox O2 Delivery O2 Flow Rate FiO2 08/16/16 16:00 Room Air 08/16/16 14:41 36.5 66 20 133/82 (99) 99 08/16/16 12:00 Room Air 08/16/16 07:14 36.7 79 18 127/68 (87) 97 Room Air 08/16/16 00:09 36.7 67 18 114/71 (85) 95 Room Air 08/16/16 00:00 Room Air
[2016-08-16] MEDS: ACETAMINOPHEN 325 MG TAB PO PRN (21:52)
[2016-08-16 23:36] VITALS: BP 119/78; PULSE 62; TEMP 36.7; O2SAT 98
[2016-08-17] MEDS: HEPARIN SOD 5000 UNIT/0.5 ML CARP SQ SCH ×3 (06:24→22:45)
[2016-08-17 07:34] VITALS: BP 117/73; PULSE 54; TEMP 36.6; O2SAT 96
[2016-08-17] MEDS: EUCERIN CR 120 GM JAR EXT SCH ×2 (09:30→22:42)
[2016-08-17] MEDS: MENTHOL-ZINC OXIDE 360 APPLN/120 GM TUBE EXT SCH ×3 (09:30→22:41)
--- NOTE | 2016-08-17 09:30 | Progress Note ---
Internal Med Progress Note Date of Service: Aug 17, 2016. Provider Documentation: SUBJECTIVE: sitting on chair ; finished breakfast appears to be happy no behavioral issues noted OBJECTIVE: Vital Signs-as noted below Exam: General-pleasant HEENT -yellowish scab on head Lungs-CTA Heart-regular s1/s2 Abdomen-soft, non tender Extremities-chronic venous stasis changes in bilat lower ext Neuro-Down's syndrome, minimally verbal Lab data as noted below. ASSESSMENT & PLAN: Agitation /behavioral issues : due to Down's syndrome continue to provide support no Sz activity noted , pt slumps over briefly repeatedly can be distracted easily from that behavior by engaging him to activity /toys need to keep away things that causing him anxiety -loud noises /lights Severe sepsis - resolved secondary to wound infection /aspiration pneumonia completed Oral Augmentin (Day #14 ) cont multivitamin with minerals continue collagenase, Calmoseptine, Eucerin for local wound care in Groin and lower ext diet liberalized to a regular diet appreciate input form Wound care SURJA and Increased Uric Acid and Hypernatremia - resolved resolved Minimal increase in Troponin is likely due to SURAJ Renal function improved ,so is Uric acid appreciate input form Nephrology Electrolytes Imbalance - resolved Corrected Poor Hygiene. unable to take care of himself due to Down's syndrome /MR /non verbal was living at home with Mother and step father unable to care for pt pt presented with skin excoriations in groin and back And likely skin mycosis in legs wound care consulted and follow the recommendations. Social Service for possible placement/SNF Legs and the groin wounds are much improved Will need care in a fpc and maintain good hygiene to prevent further infection Level 1 full code. DISPOSITION waiting for placement /SNF Social service following for discharge planning Vital Signs: Date Time Temp Pulse Resp B/P (MAP) Pulse Ox O2 Delivery O2 Flow Rate FiO2 08/17/16 07:34 36.6 54 16 117/73 (88) 96 Room Air 08/17/16 00:00 Room Air 08/16/16 23:36 36.7 62 20 119/78 (92) 98 Room Air 08/16/16 20:00 Room Air 08/16/16 16:00 Room Air 08/16/16 14:41 36.5 66 20 133/82 (99) 99 08/16/16 12:00 Room Air
[2016-08-17] MEDS: COLLAGENASE OINT 30 GM TUBE EXT SCH (09:31)
[2016-08-17] MEDS: CEROVITE ADV FORMULA TAB PO SCH (09:31)
[2016-08-17] MEDS: BOOST VANILLA PO SCH ×6 (09:32→16:41)
[2016-08-17] MEDS ORDERED: MENTOIN EXT (09:33)
[2016-08-17] MEDS ORDERED: ECRCR EXT (09:33)
[2016-08-17] MEDS ORDERED: SNTO30 EXT (09:33)
[2016-08-17] MEDS ORDERED: CNT PO (09:33)
[2016-08-17] MEDS ORDERED: MRLP17X PO (09:33)
[2016-08-17] MEDS ORDERED: LACT1LOT3 EXT (09:33)
[2016-08-17] MEDS ORDERED: Boost PO (09:33)
--- NOTE | 2016-08-17 09:38 | Discharge Instructions ---
Discharge Instructions Date of Service Aug 17, 2016. Admission Reason for Admission: Sepsis Discharge Discharge Diagnosis / Problem: BILATERAL LOWER EXT CELLULITIS /DEHYDRATION Discharge Goals Goal(s): Decrease discomfort, Diagnostic testing, Therapeutic intervention Activity Recommendations Activity Level: Assistance Required Therapies: Physical Therapy, Occupational Therapy PATIENT IS MINIMALLY VERBAL DUE TO DOWN'S SYNDROME NEEDS CONSTANT SUPPORT LIMIT LOUD NOISE AND BRIGHT LIGHTS WHICH PRECIPITATES ANXIETY /BEHAVIORAL ISSUES WHEN PATIENT IS ANXIOUS -HE SLUMPS OVER /FIXED GAZE SIMILAR LIKE HAVING SEIZURE- HIGH RISK FOR FALL NO ACTIVE SEIZURE ACTIVITY NOTED WHILE IN HOSPITAL PLEASE HAVE A PHYSICIAN EVALUATE HIM TO CONFIRM NO SEIZURE ACTIVITY HIS SYMPTOMS USUALLY IMPROVES AFTER TALKING TO HIM/GIVING HIM REASSURANCE AND DISTRACTING HIM WITH TOYS . Additional Information Patient informed of condition: Yes Advance Directives: No DNR: No Level of Care: Skilled Communicable Disease: No Prognosis: Stable Fried Catheter: No Instructions / Follow-Up Instructions / Follow-Up CONTINUE DAILY DRESSING CHANGED FOR THE FOLLOWINGS : HAS HEALED OPEN AREAS ON BUTTOCKS . OPEN AREAS ON SCROTUM, ESPECIALLY LEFT SCROTUM WOUND ON LEFT MEDIAL UPPER THIGH/GROIN PHYSICIAN FOLLOW UP AT [facility] Current Hospital Diet CONTINUE Regular Diet 1. Moist Mechanical soft ( ground ) with thin liquids 2. Aspiration precautions: straws okay; FULLY UPRIGHT; SUPERVISION with meals; alternate solids and liquids; give medications in a carrier Discharge Diet Recommended Diet: Regular Diet Diet Texture: Mechanical Soft (ground) Pending Studies Studies pending at discharge: no Laboratory Results Hemoglobin A1c Test 07/31/16 05:21 Range/Units Estimated Average Glucose 108 mg/dl Hemoglobin A1c 5.4 4.5-5.6 % Lipid Panel Test 07/31/16 05:21 Range/Units Triglycerides Level 161 H 0-150 mg/dl Cholesterol Level 121 0-200 mg/dl HDL Cholesterol 23 mg/dl Cholesterol/HDL Ratio 5.3 LDL Cholesterol, Calculated 66 mg/dl Medical Emergencies . Who to Call and When: Medical Emergencies: If at any time you feel your situation is an emergency, please call 911 immediately. . Non-Emergent Contact Non-Emergency issues call your: Primary Care Provider . . "Provider Documentation" section prepared by Chiquis Taylor. . Core Measure Problem Core Measures: None
--- NOTE | 2016-08-17 09:49 | Progress Note ---
Progress Note Date of Service Aug 17, 2016. Progress Note ATTENDING NOTE : spoke with step father mentions some one from [facility] will be at their house on Friday08/19/16 @ 9 am Parents are willing to sign the MA papers for pt to be accepted at [facility] will wait for update form Case Management pt is medically stable to be transferred to SNF , hopefully will be transitioned to exterminator helper care Fried was placed for wound healing in inner thigh and groin area As per wound care significant improvement noted pt will be continued with daily dressing change at [facility] Fried will be discontinued prior to discharge to SNF
[2016-08-17 15:21] VITALS: BP 128/73; PULSE 87; TEMP 36.7; O2SAT 94
[2016-08-17 16:00] VITALS: O2SAT 94
[2016-08-17 23:57] VITALS: BP 108/68; PULSE 72; TEMP 36.9; O2SAT 94
[2016-08-18] MEDS: MENTHOL-ZINC OXIDE 360 APPLN/120 GM TUBE EXT SCH ×3 (06:02→21:39)
[2016-08-18] MEDS: HEPARIN SOD 5000 UNIT/0.5 ML CARP SQ SCH ×3 (06:04→21:43)
[2016-08-18 06:53] VITALS: BP 125/75; PULSE 62; TEMP 36.6; O2SAT 98
[2016-08-18] MEDS: CEROVITE ADV FORMULA TAB PO SCH (07:45)
[2016-08-18] MEDS: EUCERIN CR 120 GM JAR EXT SCH ×2 (07:46→20:04)
[2016-08-18] MEDS: COLLAGENASE OINT 30 GM TUBE EXT SCH (07:46)
[2016-08-18] MEDS: BOOST VANILLA PO SCH ×6 (08:00→17:00)
[2016-08-18] MEDS: ACETAMINOPHEN 325 MG TAB PO PRN (13:23)
[2016-08-18 15:57] VITALS: BP 105/66; PULSE 69; TEMP 36.8; O2SAT 96
--- NOTE | 2016-08-18 18:51 | Progress Note ---
Internal Med Progress Note Date of Service: Aug 18, 2016. Provider Documentation: SUBJECTIVE: no sign of distress noted Fried D/brooklynn today no issue in voiding noted OBJECTIVE: Vital Signs-as noted below Exam: General-pleasant HEENT -yellowish scab on head Lungs-CTA Heart-regular s1/s2 Abdomen-soft, non tender Extremities-chronic venous stasis changes in bilat lower ext Neuro-Down's syndrome, minimally verbal Lab data as noted below. ASSESSMENT & PLAN: Agitation /behavioral issues : due to Down's syndrome continue to provide support no Sz activity noted , pt slumps over briefly repeatedly can be distracted easily from that behavior by engaging him to activity /toys need to keep away things that causing him anxiety -loud noises /lights Severe sepsis - resolved secondary to wound infection /aspiration pneumonia completed Oral Augmentin (Day #) cont multivitamin with minerals continue collagenase, Calmoseptine, Eucerin for local wound care in Groin and lower ext diet liberalized to a regular diet appreciate input form Wound care SURAJ and Increased Uric Acid and Hypernatremia - resolved resolved Minimal increase in Troponin is likely due to SURAJ Renal function improved ,so is Uric acid appreciate input form Nephrology Electrolytes Imbalance - resolved Corrected Poor Hygiene. unable to take care of himself due to Down's syndrome /MR /non verbal was living at home with Mother and step father unable to care for pt pt presented with skin excoriations in groin and back And likely skin mycosis in legs wound care consulted and follow the recommendations. Social Service for possible placement/SNF Legs and the groin wounds are much improved Will need care in a [facility] and maintain good hygiene to prevent further infection Level 1 full code. DISPOSITION spoke parents -they will sign MA application from tomorrow for [facility] placement transfer to [facility] tomorrow if accepted Social service following for discharge planning Vital Signs: Date Time Temp Pulse Resp B/P (MAP) Pulse Ox O2 Delivery O2 Flow Rate FiO2 08/18/16 16:00 Room Air 08/18/16 15:57 36.8 69 18 105/66 (79) 96 Room Air 08/18/16 08:00 Room Air 08/18/16 06:53 36.6 62 18 125/75 (92) 98 Room Air 08/18/16 00:00 Room Air 08/17/16 23:57 36.9 72 20 108/68 (81) 94 Room Air
[2016-08-19 00:01] VITALS: BP 138/78; PULSE 63; TEMP 36.6; O2SAT 99
[2016-08-19] MEDS: MENTHOL-ZINC OXIDE 360 APPLN/120 GM TUBE EXT SCH ×3 (05:36→22:22)
[2016-08-19] MEDS: HEPARIN SOD 5000 UNIT/0.5 ML CARP SQ SCH ×3 (05:38→22:21)
[2016-08-19 07:29] VITALS: BP_SYST 120; BP_SYST 144; BP_DIAS 76; BP_DIAS 84; PULSE 54; PULSE 68; TEMP 36.4; TEMP 36.5; O2SAT 94; O2SAT 98
[2016-08-19 08:00] VITALS: O2SAT 98
[2016-08-19] MEDS: CEROVITE ADV FORMULA TAB PO SCH (08:09)
[2016-08-19] MEDS: EUCERIN CR 120 GM JAR EXT SCH ×2 (08:10→20:17)
[2016-08-19] MEDS: COLLAGENASE OINT 30 GM TUBE EXT SCH (08:11)
[2016-08-19] MEDS: BOOST VANILLA PO SCH ×6 (08:15→16:42)
[2016-08-19 14:50] VITALS: BP 126/81; PULSE 91; TEMP 36.6; O2SAT 94
--- NOTE | 2016-08-19 18:18 | Progress Note ---
Medicine Progress Note Date & Time of Visit: Aug 19, 2016 at 17:53. Subjective Pt was seen and examined very pleasant with no distress Sitting in chair comfortable with 1 to 1 sitter Pt has been acting like he is unresponsive Objective Last 8 Hrs Date Time Temp Pulse Resp B/P (MAP) Pulse Ox O2 Delivery O2 Flow Rate FiO2 08/19/16 14:50 36.6 91 20 126/81 (96) 94 Physical Exam: General- Very pleasant, no distress Head- atraumatic Eyes- PERRL, EOMI ENT- oropharynx clear Neck- supple, no JVD Lungs- clear to auscultation Heart- regular rhythm Abdomen- normal bowel sounds, soft Extremities- no calf tenderness Neuro- alert, PERRL, EOMI Skin- warm & dry Assessment & Plan Agitation /behavioral issues Secondary to Down's syndrome has been cooperative continue to redirect him to stay on task and providing support No seizure activity can be distracted easily from that behavior by engaging him to activity /toys Stable Severe sepsis - secondary to wound infection /aspiration pneumonia completed Oral Augmentin (Day #) continue collagenase, Calmoseptine, Eucerin for local wound care in Groin and lower ext Continue daily wound care Resolved SURAJ and Increased Uric Acid and Hypernatremia Minimal increase in Troponin is likely due to SURAJ Renal function improved ,so is Uric acid appreciate input form Nephrology resolved Electrolytes Imbalance Stable continue monitor electrolytes Poor Hygiene. unable to take care of himself due to Down's syndrome /MR /non verbal Family unable to provide care for pt Will need help with ADL and daily activities Social Service for possible placement/SNF Will need care in a intermediate and maintain good hygiene to prevent further infection CODE STATUS FULL CODE DISPOSITION waiting for signature for MA application Transfer to [facility] tomorrow if accepted Current Inpatient Medications: Current Inpatient Medications Medications (Trade) Dose Ordered Sig/Saurabh Route Start Time Stop Time Status Last Admin Dose Admin Heparin Sodium (Porcine) (Heparin Sq 5000 Unit/0.5ml) 5,000 unit Q8 SQ 07/30/16 22:00 08/29/16 21:59 08/19/16 14:34 5,000 UNIT Acetaminophen (Tylenol Tab) 650 mg Q4H PRN PO 07/30/16 17:15 08/29/16 17:14 08/18/16 13:23 650 MG Ondansetron HCl (Zofran Inj) 4 mg Q6H PRN IV 07/30/16 17:15 08/29/16 17:14 08/15/16 20:17 4 MG Nitroglycerin (Nitrostat Tab) 0.4 mg UD PRN SL 07/30/16 17:15 08/29/16 17:14 Polyethylene (Miralax Powder Packet) 17 gm DAILY PRN PO 07/30/16 17:15 08/29/16 17:14 08/15/16 19:37 17 GM Multi-Ingredient Ointment (Eucerin Unscented Cr) 1 appln BID EXT 07/31/16 09:00 08/30/16 08:59 08/19/16 08:10 1 APPLN Ammonium Lactate (Lac-Hydrin) 1 appl BID PRN EXT 08/02/16 14:45 09/01/16 14:44 08/15/16 19:38 1 APPL Menthol/Zinc Oxide (Calmoseptine Oint) 1 appln Q8H EXT 08/02/16 14:45 09/01/16 14:44 08/19/16 16:43 1 APPLN Menthol/Zinc Oxide (Calmoseptine Oint) 1 appln Q8H PRN EXT 08/02/16 14:45 09/01/16 14:44 Collagenase (Santyl Oint) 1 appln DAILY EXT 08/08/16 08:00 09/07/16 07:59 08/19/16 08:11 1 APPLN Multivitamins/ Minerals (Multivitamin W/ Minerals Tab) 1 tab QAM PO 08/09/16 09:30 09/08/16 09:29 08/19/16 08:09 1 TAB Enteral Nutritional Formula (Boost) 1 can TIDM PO 08/17/16 12:00 09/04/16 19:59 08/19/16 16:42 1 CAN
[2016-08-19 23:59] VITALS: BP 94/58; PULSE 60; TEMP 36.5; O2SAT 98
[2016-08-20] MEDS: HEPARIN SOD 5000 UNIT/0.5 ML CARP SQ SCH ×3 (05:43→22:13)
[2016-08-20] MEDS: MENTHOL-ZINC OXIDE 360 APPLN/120 GM TUBE EXT SCH ×3 (06:01→22:12)
[2016-08-20 07:17] VITALS: BP 109/66; PULSE 59; TEMP 36.6; O2SAT 96
[2016-08-20 07:40] VITALS: O2SAT 96
[2016-08-20] MEDS: COLLAGENASE OINT 30 GM TUBE EXT SCH (08:01)
[2016-08-20] MEDS: EUCERIN CR 120 GM JAR EXT SCH ×2 (08:01→20:06)
[2016-08-20] MEDS: AMMONIUM LACTATE 12% LOTION 225 GM BTL EXT PRN (08:02)
[2016-08-20] MEDS: BOOST VANILLA PO SCH ×6 (08:03→18:02)
[2016-08-20] MEDS: CEROVITE ADV FORMULA TAB PO SCH (08:12)
[2016-08-20] MEDS: ACETAMINOPHEN 325 MG TAB PO PRN ×2 (08:13→13:31)
--- NOTE | 2016-08-20 15:06 | Progress Note ---
Medicine Progress Note Date & Time of Visit: Aug 20, 2016 at 15:04. Subjective Pt was seen and examined very pleasant Lying in bed comfortable with no distress watching cartoon Objective Last 8 Hrs Date Time Temp Pulse Resp B/P (MAP) Pulse Ox O2 Delivery O2 Flow Rate FiO2 08/20/16 07:40 96 Room Air 08/20/16 07:17 36.6 59 18 109/66 (80) 96 Room Air Physical Exam: General- Very pleasant, no distress Head- atraumatic Eyes- PERRL, EOMI ENT- oropharynx clear Neck- supple, no JVD Lungs- clear to auscultation Heart- regular rhythm Abdomen- normal bowel sounds, soft Extremities- no calf tenderness Neuro- alert, PERRL, EOMI Skin- warm & dry Assessment & Plan Agitation /behavioral issues Secondary to Down's syndrome has been cooperative continue to redirect him to stay on task and providing support No seizure activity can be distracted easily from that behavior by engaging him to activity /toys Stable Severe sepsis - secondary to wound infection /aspiration pneumonia completed Oral Augmentin (Day #14 ) continue collagenase, Calmoseptine, Eucerin for local wound care in Groin and lower ext Continue daily wound care Resolved SURAJ and Increased Uric Acid and Hypernatremia Minimal increase in Troponin is likely due to SURAJ Renal function improved ,so is Uric acid appreciate input form Nephrology resolved Electrolytes Imbalance Stable continue monitor electrolytes Poor Hygiene. unable to take care of himself due to Down's syndrome /MR /non verbal Family unable to provide care for pt Will need help with ADL and daily activities Social Service for possible placement/SNF Will need care in a longterm and maintain good hygiene to prevent further infection CODE STATUS FULL CODE DISPOSITION waiting for signature for MA application Transfer to [facility] tomorrow if accepted Current Inpatient Medications: Current Inpatient Medications Medications (Trade) Dose Ordered Sig/Saurabh Route Start Time Stop Time Status Last Admin Dose Admin Heparin Sodium (Porcine) (Heparin Sq 5000 Unit/0.5ml) 5,000 unit Q8 SQ 07/30/16 22:00 08/29/16 21:59 08/20/16 14:19 5,000 UNIT Acetaminophen (Tylenol Tab) 650 mg Q4H PRN PO 07/30/16 17:15 08/29/16 17:14 08/20/16 13:31 650 MG Ondansetron HCl (Zofran Inj) 4 mg Q6H PRN IV 07/30/16 17:15 08/29/16 17:14 08/15/16 20:17 4 MG Nitroglycerin (Nitrostat Tab) 0.4 mg UD PRN SL 07/30/16 17:15 08/29/16 17:14 Polyethylene (Miralax Powder Packet) 17 gm DAILY PRN PO 07/30/16 17:15 08/29/16 17:14 08/15/16 19:37 17 GM Multi-Ingredient Ointment (Eucerin Unscented Cr) 1 appln BID EXT 07/31/16 09:00 08/30/16 08:59 08/20/16 08:01 1 APPLN Ammonium Lactate (Lac-Hydrin) 1 appl BID PRN EXT 08/02/16 14:45 09/01/16 14:44 08/20/16 08:02 1 APPL Menthol/Zinc Oxide (Calmoseptine Oint) 1 appln Q8H EXT 08/02/16 14:45 09/01/16 14:44 08/20/16 08:01 1 APPLN Menthol/Zinc Oxide (Calmoseptine Oint) 1 appln Q8H PRN EXT 08/02/16 14:45 09/01/16 14:44 Collagenase (Santyl Oint) 1 appln DAILY EXT 08/08/16 08:00 09/07/16 07:59 08/20/16 08:01 1 APPLN Multivitamins/ Minerals (Multivitamin W/ Minerals Tab) 1 tab QAM PO 08/09/16 09:30 09/08/16 09:29 08/20/16 08:12 1 TAB Enteral Nutritional Formula (Boost) 1 can TIDM PO 08/17/16 12:00 09/04/16 19:59 08/20/16 12:07 1 CAN
[2016-08-20 15:13] VITALS: BP 115/61; PULSE 55; TEMP 36.4; O2SAT 94
[2016-08-20 16:05] VITALS: O2SAT 94
[2016-08-21] MEDS: AMMONIUM LACTATE 12% LOTION 225 GM BTL EXT PRN (00:03)
[2016-08-21 00:25] VITALS: BP 143/80; PULSE 62; TEMP 36.5; O2SAT 97
[2016-08-21] MEDS: HEPARIN SOD 5000 UNIT/0.5 ML CARP SQ SCH (06:05)
[2016-08-21] MEDS: MENTHOL-ZINC OXIDE 360 APPLN/120 GM TUBE EXT SCH (06:07)
[2016-08-21 07:54] VITALS: BP 117/75; PULSE 55; TEMP 36.3; O2SAT 98
[2016-08-21 08:00] VITALS: O2SAT 98
[2016-08-21] MEDS: CEROVITE ADV FORMULA TAB PO SCH (08:08)
[2016-08-21] MEDS: BOOST VANILLA PO SCH ×4 (08:08→11:57)
[2016-08-21] MEDS: COLLAGENASE OINT 30 GM TUBE EXT SCH (08:08)
[2016-08-21] MEDS: EUCERIN CR 120 GM JAR EXT SCH (08:09)
[2016-08-21 10:06] VITALS: BP 117/75; PULSE 55; TEMP 36.3; O2SAT 98
--- NOTE | 2016-08-21 11:50 | Progress Note ---
Medicine Progress Note Date & Time of Visit: Aug 21, 2016 at 11:48. Subjective Pt was seen and examined sitting in chair very comfortable very pleasant, doing coloring Objective Last 8 Hrs Date Time Temp Pulse Resp B/P (MAP) Pulse Ox O2 Delivery O2 Flow Rate FiO2 08/21/16 10:06 36.3 55 18 98 Room Air 08/21/16 08:00 98 Room Air 08/21/16 07:54 36.3 55 18 117/75 (89) 98 Room Air Physical Exam: General- Very pleasant, no distress Head- atraumatic Eyes- PERRL, EOMI ENT- oropharynx clear Neck- supple, no JVD Lungs- clear to auscultation Heart- regular rhythm Abdomen- normal bowel sounds, soft Extremities- no calf tenderness Neuro- alert, PERRL, EOMI Skin- warm & dry Assessment & Plan Agitation /behavioral issues Secondary to Down's syndrome has been cooperative continue to redirect him to stay on task and providing support No seizure activity can be distracted easily from that behavior by engaging him to activity /toys Stable Severe sepsis - secondary to wound infection /aspiration pneumonia completed Oral Augmentin (Day #14 ) continue collagenase, Calmoseptine, Eucerin for local wound care in Groin and lower ext Continue daily wound care Resolved SURAJ and Increased Uric Acid and Hypernatremia Minimal increase in Troponin is likely due to SURAJ Renal function improved ,so is Uric acid appreciate input form Nephrology resolved Electrolytes Imbalance Stable continue monitor electrolytes Poor Hygiene. unable to take care of himself due to Down's syndrome /MR /non verbal Family unable to provide care for pt Will need help with ADL and daily activities Social Service for possible placement/SNF Will need care in a [facility] and maintain good hygiene to prevent further infection Will transfer to [facility] CODE STATUS FULL CODE DISPOSITION waiting for signature for MA application Transfer to [facility] today Current Inpatient Medications: Current Inpatient Medications Medications (Trade) Dose Ordered Sig/Saurabh Route Start Time Stop Time Status Last Admin Dose Admin Heparin Sodium (Porcine) (Heparin Sq 5000 Unit/0.5ml) 5,000 unit Q8 SQ 07/30/16 22:00 08/29/16 21:59 08/21/16 06:05 5,000 UNIT Acetaminophen (Tylenol Tab) 650 mg Q4H PRN PO 07/30/16 17:15 08/29/16 17:14 08/20/16 13:31 650 MG Ondansetron HCl (Zofran Inj) 4 mg Q6H PRN IV 07/30/16 17:15 08/29/16 17:14 08/15/16 20:17 4 MG Nitroglycerin (Nitrostat Tab) 0.4 mg UD PRN SL 07/30/16 17:15 08/29/16 17:14 Polyethylene (Miralax Powder Packet) 17 gm DAILY PRN PO 07/30/16 17:15 08/29/16 17:14 08/15/16 19:37 17 GM Multi-Ingredient Ointment (Eucerin Unscented Cr) 1 appln BID EXT 07/31/16 09:00 08/30/16 08:59 08/21/16 08:09 1 APPLN Ammonium Lactate (Lac-Hydrin) 1 appl BID PRN EXT 08/02/16 14:45 09/01/16 14:44 08/21/16 00:03 1 APPL Menthol/Zinc Oxide (Calmoseptine Oint) 1 appln Q8H EXT 08/02/16 14:45 09/01/16 14:44 08/21/16 06:07 1 APPLN Menthol/Zinc Oxide (Calmoseptine Oint) 1 appln Q8H PRN EXT 08/02/16 14:45 09/01/16 14:44 Collagenase (Santyl Oint) 1 appln DAILY EXT 08/08/16 08:00 09/07/16 07:59 08/21/16 08:08 1 APPLN Multivitamins/ Minerals (Multivitamin W/ Minerals Tab) 1 tab QAM PO 08/09/16 09:30 09/08/16 09:29 08/21/16 08:08 1 TAB Enteral Nutritional Formula (Boost) 1 can TIDM PO 08/17/16 12:00 09/04/16 19:59 08/21/16 08:08 1 CAN
--- NOTE | 2016-08-24 19:49 | Discharge Summary ---
Discharge Summary Date of Service Aug 24, 2016. Discharge Summary Admission Date: Jul 30, 2016 at 16:38 Discharge Date: Aug 19, 2016 Discharge Disposition: long term facility Principal Diagnosis: Severe sepsis Secondary Diagnoses/Problems: BILATERAL LOWER EXT CELLULITIS DEHYDRATION Electrolytes Imbalance SURAJ Increased Uric Acid Hypernatremia Procedures: BILIARY ULTRASOUND CLINICAL HISTORY: elevated liver function tests COMPARISON STUDY: No previous studies for comparison. FINDINGS: The pancreas was nonvisualized. The liver is of increased echogenicity, a nonspecific finding often seen in hepatic steatosis. No gallstones are visualized. There is no ductal dilatation. The common bile duct measured 4 mm. There is no right-sided hydronephrosis. The study was limited from a technical standpoint. The patient is nonverbal and unable to cooperate. IMPRESSION: 1. Technically limited study 2. Probable hepatic steatosis 3. Ultrasonographically normal gallbladder. No evidence of ductal dilatation 4. Nondiagnostic evaluation of the pancreas Electronically signed by: Juan J Rizzo M.D. 07/30/2016 8:57 PM Dictated Date/Time: 07/30/2016 8:56 PM CHEST ONE VIEW PORTABLE HISTORY: PNEUMONIA COMPARISON: Outside hospital chest x-ray 07/30/2016. FINDINGS: No pneumothorax. The heart is moderately enlarged. Trace bilateral pleural effusions. Perihilar interstitial and vascular thickening with basilar densities. IMPRESSION: Cardiomegaly, trace bilateral pleural effusions and perihilar interstitial vascular thickening favors mild pulmonary edema. Bibasilar densities may represent a superimposed pneumonia. Electronically signed by: Akira Wu M.D. 07/31/2016 7:43 AM Dictated Date/Time: 07/31/2016 7:[address]AST CT DOSE: 537.48 mGy.cm HISTORY: Mental status change mental status change TECHNIQUE: Multiaxial CT images of the head were performed without the use of intravenous contrast. Comparison: None. Findings: The paranasal sinuses and mastoid air cells are clear. The calvarium and skull base are intact. The ventricles and sulci are within normal limits. There is no mass, hematoma, midline shift, or acute infarct. Impression: No acute intracranial abnormality. Electronically signed by: Triston Huertas M.D. 08/11/2016 12:16 PM Dictated Date/Time: 08/11/2016 12:14 PM Consultations: Nephrology Wound care Medication Reconciliation New Medications: Collagenase (Santyl) 250 Unit/Gm Oin 1 APPLN EXT DAILY for 30 Days Eucerin (Hydrocerin) 360 Appln/120 Gm Cr 1 APPLN EXT BID for 30 Days Lactic Acid (Ammonium Lactate) (Amlactin) 12 % Lot 1 APPL EXT BID PRN for DRYNESS for 30 Days Menthol-Zinc Oxide (Calmoseptine) 1 Oin Oin 1 APPLN EXT Q8H for 30 Days Menthol-Zinc Oxide (Calmoseptine) 1 Oin Oin 1 APPLN EXT Q8H PRN for DRYNESS for 30 Days Multivitamins/Minerals (Certavite/Antioxidants) 1 Tab Tab 1 TAB PO QAM for 30 Days, TAB Polyethylene (Miralax) 17 Gm Pow 17 GM PO DAILY PRN for Constipation for 30 Days [Boost] () 1 CAN LIQD 1 CAN PO TIDM for 30 Days, #90 CAN Admission Information HPI (per Admitting provider): CHIEF COMPLAINT: Severe sepsis. HISTORY OF PRESENT ILLNESS: This is a 50-year-old male with past medical history significant for Down syndrome, mostly nonverbal; history of lower extremity stasis dermatitis, history of impaired fasting glucose, hyperlipidemia, cardiac murmur was transferred from [facility] for severe sepsis. Patient, he is mostly nonverbal, says he is okay. The patient lives with his biological mother and stepfather. His mother is disabled and step father takes care of both of them. Talked to his biological father and he said the patient developed some shortness of breath since yesterday and he fell down today and they called EMS and was transferred to [facility]. The father says the patient was having some cough and had a few episodes of diarrhea and patient was also not eating much since last 2 days and was running some temperatures, so he was transferred to [facility]. In the [facility] when the patient arrived he was hypotensive, systolic blood pressure in 60s. He got about 3 liters fluid bolus and blood pressure came up. His initial lactic acid was 3.4 and later lactic acid was 1.3, his troponin I was 0.7. CPK was 6600, initial creatinine was 3.1, repeat creatinine was after fluid bolus was 2.1. Sodium was also high at 150, and uric acid was 13.4. Calcium was 9.3 and the patient was transferred here for further care. He has two 18 gauge lines placed. Currently, blood pressure is stable in high 90s. Heart rate is stable, resting comfortably, seems comfortable. When asked about pain, points to his lower extremities. The patient is unkempt and very poor hygiene. He has lots of thick white scabs attached to his lower extremities and also some skin tear in his groins and also some skin tear in his back as per nursing staff.Also has petechiae rash on fore arms. Physical Exam (per Admitting): PHYSICAL EXAMINATION: GENERAL: The patient is obese, does not seem to be in distress. VITAL SIGNS: Afebrile, pulse 70s, respiratory rate in 20s, blood pressure 99/60s, oxygen saturations were fine. HEENT: No pallor, no icterus. Pupils equal, round, and reactive to light. Oral mucosa dry. NECK: No JVD, no neck masses, no carotid bruits. CARDIOVASCULAR: S1, S2 heard, regular rate and rhythm, no murmur, no gallop. RESPIRATORY SYSTEM: Clear to auscultation bilaterally. No wheezing, no crackles. ABDOMEN: Soft, bowel sounds present. Nontender. No distention. CENTRAL NERVOUS SYSTEM: Nonverbal. Moves his bilateral lower extremities. EXTREMITIES: Chronic lower extremity skin dermatitis and edema present. SKIN: Has petechial rash in upper extremities and excoriations and skin tears in the groin and he has very bad scabs in his lower extremities. Hospital Course Agitation /behavioral issues Secondary to Down's syndrome has been cooperative continue to redirect him to stay on task and providing support No seizure activity can be distracted easily from that behavior by engaging him to activity /toys Stable Severe sepsis - secondary to wound infection /aspiration pneumonia completed Oral Augmentin (Day #14 /14) continue collagenase, Calmoseptine, Eucerin for local wound care in Groin and lower ext Continue daily wound care Resolved SURAJ and Increased Uric Acid and Hypernatremia Minimal increase in Troponin is likely due to SURAJ Renal function improved ,so is Uric acid appreciate input form Nephrology resolved Electrolytes Imbalance Stable continue monitor electrolytes Poor Hygiene. unable to take care of himself due to Down's syndrome /MR /non verbal Family unable to provide care for pt Will need help with ADL and daily activities Social Service for possible placement/SNF Will need care in a alf and maintain good hygiene to prevent further infection Will transfer to [facility] CODE STATUS FULL CODE DISPOSITION waiting for signature for [place] application Transfer to [facility] today Total time spent on discharge = 35 minutes This includes examination of the patient, discharge planning, medication reconciliation, and communication with other providers. Discharge Instructions Discharge Instructions Date of Service Aug 17, 2016. Admission Reason for Admission: Sepsis Discharge Discharge Diagnosis / Problem: BILATERAL LOWER EXT CELLULITIS /DEHYDRATION Discharge Goals Goal(s): Decrease discomfort, Diagnostic testing, Therapeutic intervention Activity Recommendations Activity Level: Assistance Required Therapies: Physical Therapy, Occupational Therapy PATIENT IS MINIMALLY VERBAL DUE TO DOWN'S SYNDROME NEEDS CONSTANT SUPPORT LIMIT LOUD NOISE AND BRIGHT LIGHTS WHICH PRECIPITATES ANXIETY /BEHAVIORAL ISSUES WHEN PATIENT IS ANXIOUS -HE SLUMPS OVER /FIXED GAZE SIMILAR LIKE HAVING SEIZURE- HIGH RISK FOR FALL NO ACTIVE SEIZURE ACTIVITY NOTED WHILE IN HOSPITAL PLEASE HAVE A PHYSICIAN EVALUATE HIM TO CONFIRM NO SEIZURE ACTIVITY HIS SYMPTOMS USUALLY IMPROVES AFTER TALKING TO HIM/GIVING HIM REASSURANCE AND DISTRACTING HIM WITH TOYS . Additional Information Patient informed of condition: Yes Advance Directives: No DNR: No Level of Care: Skilled Communicable Disease: No Prognosis: Stable Fried Catheter: No Instructions / Follow-Up Instructions / Follow-Up CONTINUE DAILY DRESSING CHANGED FOR THE FOLLOWINGS : HAS HEALED OPEN AREAS ON BUTTOCKS . OPEN AREAS ON SCROTUM, ESPECIALLY LEFT SCROTUM WOUND ON LEFT MEDIAL UPPER THIGH/GROIN PHYSICIAN FOLLOW UP AT [facility] Current Hospital Diet CONTINUE Regular Diet 1. Moist Mechanical soft ( ground ) with thin liquids 2. Aspiration precautions: straws okay; FULLY UPRIGHT; SUPERVISION with meals; alternate solids and liquids; give medications in a carrier Discharge Diet Recommended Diet: Regular Diet Diet Texture: Mechanical Soft (ground) Pending Studies Studies pending at discharge: no Laboratory Results Hemoglobin A1c Test 07/31/16 05:21 Range/Units Estimated Average Glucose 108 mg/dl Hemoglobin A1c 5.4 4.5-5.6 % Lipid Panel Test 07/31/16 05:21 Range/Units Triglycerides Level 161 H 0-150 mg/dl Cholesterol Level 121 0-200 mg/dl HDL Cholesterol 23 mg/dl Cholesterol/HDL Ratio 5.3 LDL Cholesterol, Calculated 66 mg/dl Medical Emergencies . Who to Call and When: Medical Emergencies: If at any time you feel your situation is an emergency, please call 911 immediately. . Non-Emergent Contact Non-Emergency issues call your: Primary Care Provider . . "Provider Documentation" section prepared by Chiquis Taylor. . Core Measure Problem Core Measures: None Additional Copies To [place]
== END 2016-08-21 14:11 | DRG 871 ==
LOC: C.MSICU 16:38 → C.2E 17:12 → CANRESERV 17:48 → ENRESERV 17:48 → C.MS4W 07-31 16:30
PROVIDERS: ADMIT Internal Medicine; ATTEND Internal Medicine
DX: A41.9 Sepsis, unspecified organism (principal); J69.0 Pneumonitis due to inhalation of food and vomit; E87.0 Hyperosmolality and hypernatremia; Q90.9 Down syndrome, unspecified; N17.9 Acute kidney failure, unspecified; R65.20 Severe sepsis without septic shock; R73.03 Prediabetes; E78.5 Hyperlipidemia, unspecified; I87.8 Other specified disorders of veins; K76.0 Fatty (change of) liver, not elsewhere classified; R46.0 Very low level of personal hygiene; E86.0 Dehydration; R45.1 Restlessness and agitation; L03.115 Cellulitis of right lower limb; L03.116 Cellulitis of left lower limb

== ENCOUNTER → 2016-08-23 | Outpatient (CLI) | payer OTHER ==
[~2016-08-23] MED LIST: Boost PO; CNT PO; ECRCR EXT; LACT1LOT3 EXT; MENTOIN EXT; MRLP17X PO; SNTO30 EXT
[2016-08-23 09:12] LABS: AST/SGOT 16 U/L (15-37); BLOOD UREA NITROGEN 12 mg/dl (7-18); BUN/CREATININE RATIO 11.1 (10-20); CARBON DIOXIDE 26 mmol/L (21-32); CHLORIDE 108 mmol/L (98-107); GLUCOSE 86 mg/dl (70-99); POTASSIUM 3.8 mmol/L (3.5-5.1); SODIUM 141 mmol/L (136-145)
[2016-08-23 09:16] LABS: ALB/GLOB RATIO 0.6 (0.9-2); ALKALINE PHOSPHATASE 49 U/L (45-117); ALT/SGPT 17 U/L (12-78); PREALBUMIN 16.9 mg/dl (20-40)
== END ==
LOC: C.LABCC 07:54
PROVIDERS: ATTEND Internal Medicine
DX: E88.09 Other disorders of plasma-protein metabolism, not elsewhere classified (principal)

== ENCOUNTER → 2016-09-05 | Outpatient (CLI) | payer OTHER | LOC: C.LABCC 10:40 | PROVIDERS: ATTEND Internal Medicine | DX: R00.1 Bradycardia, unspecified (principal) ==

== ENCOUNTER → 2016-09-23 | Outpatient (CLI) | payer OTHER | LOC: C.LABCC 09:16 | PROVIDERS: ATTEND Internal Medicine | DX: T14.8 Other injury of unspecified body region (principal); X58.XXXA Exposure to other specified factors, initial encounter ==

== ENCOUNTER → 2016-09-24 | Outpatient (CLI) | payer OTHER ==
[2016-09-24 11:25] LABS: BASO ABS # 0.18 K/uL (0-0.2); COMPLETE YES; EOS % 5.3 %; HEMATOCRIT 40.7 % (42-52); IG% 2.3 %; LYMPH % 32.1 %; LYMPH ABS # 1.93 K/uL (1.2-3.4); MEAN CELL VOLUME 98.8 fL (80-100); MEAN CORPUSCULAR HGB CONC 32.4 g/dl (32-36); MEAN PLATELET VOLUME 11.4 fL (7.4-10.4); MONO % 10.5 %; NEUT % 46.8 %; PLATELET COUNT 185 K/uL (130-400); RED BLOOD COUNT 4.12 M/uL (4.7-6.1); WHITE BLOOD COUNT 6.01 K/uL (4.8-10.8)
== END ==
LOC: C.LABCC 09:57
PROVIDERS: ATTEND Internal Medicine
DX: D64.9 Anemia, unspecified (principal)